=== PATIENT | female | born 1960 | race Caucasian/White ===

== ENCOUNTER 2016-05-10 11:58 | Emergency (ER) | payer MEDICARE, MEDICAID ==
[~2016-05-10 11:58] MED LIST: AMLODIPINE PO; ASA PO; CALCTAB75 PO; EMERGEN C PO; HIZENTRA INJ; LEVOXYL PO; MAGN250T3 PO; MSM PO; VITA200038 PO; ZYRTEC PO; [UNRECOGNIZED DRUG - OTHER] PO
--- NOTE | 2016-05-10 13:13 | EDDOCDS ---
Nurse's Notes [facility] Name: Lynne Zamora Age: 56 yrs Sex: Female : 1960 Arrival Date: 05/10/2016 Time: 11:58 Bed PR2 Private MD: Hafsa Boyle M Diagnosis: Fall due to ice and snow;Contusion of right knee;Acute sinusitis, unspecified Presentation: 05/10 12:01 Presenting complaint: Patient states: slipped on ice and landed on right knee. incident srm occurred to day. also post nasal drip and back of head pain. when she fell she did not hit head. Adult Sepsis Screening: The patient does not have new or worsening altered mentation. Patient's respiratory rate is less than 22. Systolic blood pressure is greater than 100. Patient has a qSOFA score of 0- Negative Sepsis Screen. Suicide/Homicide risk assessment- the patient denies having any suicidal and/or homicidal ideations and does not present with any other emotional, behavioral or mental health complaints. 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 Transition of care: patient was not received from another setting of care. 12:01 Acuity: JUAN MANUEL Level 4 srm 12:01 Method Of Arrival: Walkin/Carried/Asstd srm Triage Assessment: 12:04 General: Appears in no apparent distress, Behavior is appropriate for age, cooperative. srm Pain: Pain currently is 2 out of 10 on a pain scale. At worst was 4 out of 10 on a pain scale. HIV screening NA for this visit Offered previously. 12:05 EENT: Reports post nasal drip. Musculoskeletal: Reports right knee pain. srm Historical: - Allergies: PENICILLINS; - Home Meds: 1. Mucinex 600 mg oral Ta12 1 tab every 12 hours 2. amlodipine 5 mg Oral tab 1 tab once daily 3. levothyroxine 13 mcg Oral cap 1 cap once daily 4. paroxetine HCl 20 mg Oral tab 1 tab once daily 5. ropinirole 0.25 mg oral tab 1 tab nightly for Restless Legs Syndrome 6. Vitamin D Oral 2000 unit weekly - PMHx: Anxiety; Hypertension; Hypothyroidism; restless leg syndrome; Depression; - PSHx: Ear Tubes; Tonsillectomy; Adenoidectomy; repair fracture femur X 2; - Social history: Smoking status: Patient states was never smoker of tobacco. No barriers to communication noted, The patient speaks fluent Setswana, Speaks appropriately for age. - Family history: Not pertinent. - : The pt / caregiver states he / she is not on anticoagulants. Home medication list is obtained from the patient. - Exposure Risk Screening:: None identified. Screenin:09 Screening information is obtained from the patient. Fall risk: No risks identified. [facility] Assistance ADL's: requires no assistance with activities of daily living. Abuse/DV Screen: The patient / caregiver reports he/she is: not in a situation that causes fear, pain or injury. Nutritional screening: No deficits noted. Advance Directives: There is no active DNR order. home support is adequate. Assessment: 13:09 General: Appears in no apparent distress, comfortable, Behavior is appropriate for age, [facility] cooperative, first contact with patient who denies needs at this time. Reviewed discharge instructions, encouraged and answered questions, denies needs, declines offers of further assistance. Musculoskeletal: Range of motion intact in all extremities. Vital Signs: 11:59 BP 149 / 85; Pulse 86; Resp 16; Temp 97.9(O); Pulse Ox 98% on R/A; Weight 74.84 kg; sew Height 4 ft. 10 in. (147.32 cm); Pain 4/10; 13:07 BP 134 / 83 RA Sitting (auto/lg); Pulse 91; Resp 18; Temp 100.2(T); Pulse Ox 92% on rs6 R/A; Pain 2/10; 11:59 Body Mass Index 34.48 (74.84 kg, 147.32 cm) [facility] Vitals: 11:59 Log In Time: May 10, 2016 at 11:55. [facility] ED Course: 11:59 Patient visited by Lexie Lopez. sew 11:59 Hafsa Boyle is Private Physician. sew 11:59 Patient moved to Waiting sew 12:00 Patient visited by Lexie Lopez. sew 12:00 Patient moved to Pre RCE sew 12:03 Triage Initiated srm 12:05 Patient moved to Triage 2 srm 12:20 [facility]intron [facility] dt4 12:20 Syed Seay MD is Attending Physician. dt4 12:20 Patient visited by Parris Cintron PA-C. dt4 12:33 Patient moved to TR1 jb5 12:48 [facility] Payment Agreement was scanned into [employer] and attached to record. lg 12:58 Hafsa Boyle is Referral Physician. dt4 13:02 Patient moved to PR rs6 13:07 Patient visited by Lynne Cortez PCA. rs6 13:09 The patient / caregiver is instructed regarding the plan of care and ED course. [facility] 13:09 No IV's were initiated during this patient's visit. No procedures done that require [facility] assistance. Order Results: There are currently no results for this order. Outcome: 12:59 Discharge ordered by Provider. dt4 13:09 Discharge Assessment: Patient awake, alert and oriented x 3. No cognitive and/or [facility] functional deficits noted. Patient verbalized understanding of disposition instructions. patient administered narcotics - no. The following High Risk Discharge criteria are identified: None. Discharged to home ambulatory. Condition: good Condition: stable. Discharge instructions given to patient, Instructed on discharge instructions, follow up and referral plans. medication usage, Demonstrated understanding of instructions, medications, Pt was receptive of discharge instructions/ teaching. Prescriptions given X 2. No special radiology studies were completed. Property :Personal belongings accompany Pt. 13:12 Patient left the ED. [facility] Signatures: Yohana Owens, RN Wai Torres Reg Reg lg Baker, Janet, LONNIE INDUCTION BRAZER jb5 Alexia Napier RN RN [facility] Lexie Lopez Diane, PA-C PA-C dt4 Lynne Cortez PCA INDUCTION BRAZER rs6 ROBERT
--- NOTE | 2016-05-10 13:14 | REP ---
RIGHT KNEE SERIES: Five views right knee performed. There is no acute fracture or dislocation. There is moderate diffuse joint space narrowing with subchondral sclerosis and spurring. I do not see a significant joint effusion. IMPRESSION: Degenerative changes. No fracture or dislocation. Signed by Rico Kohler MD 05/10/2016 01:31 P
--- NOTE | 2016-05-10 13:14 | EDDOCDS ---
Physician Documentation [facility] Name: Lynne Zamora Age: 56 yrs Sex: Female : 1960 Arrival Date: 05/10/2016 Time: 11:58 Bed PR Private MD: Hafsa Boyle M Disposition: 05/10/16 12:59 Discharged to Home/Self Care. Impression: Fall due to ice and snow, Contusion of right knee, Acute sinusitis, unspecified. - Condition is Stable. - Discharge Instructions: Contusion, Sinusitis, Adult. - Prescriptions for Zithromax Z- Ravi 250 mg Oral Tablet - take 1 tablet by ORAL route as directed for 5 days Day 1- take two tablets once. Day 2, 3, 4 , 5 take one tablet once daily.; 6 tablet. Tigan 300 mg Oral Capsule - take 1 capsule by ORAL route every 12 hours As needed; 20 capsule. - Work Release Form - 1 day, Medication Reconciliation, Local Pharmacy Hours form. - Follow up: Emergency Department; When: As needed; Reason: Worsening of conditions. Follow up: Hafsa Boyle; When: 2 - 3 days; Reason: Wound/Symptom Recheck, Recheck today's complaints, Continuance of care. - Problem is new. - Symptoms are unchanged. - Notes: YOUR XRAY DID NOT SHOW ANY FRACTURES TODAY. TAKE THE ANTIBIOTIC DIRECTED FOR YOUR SINUSITIS. TAKE THE TIGAN DIRECTED, NEEDED FOR ANY NAUSEA FROM THE ANTIBIOTIC. FOLLOW UP WITH YOUR PRIMARY CARE PROVIDER WITHIN THE NEXT WEEK TO RECHECK YOUR SYMPTOMS. ANY WORSENING SYMPTOMS, PLEASE RETURN TO THE ER. Historical: - Allergies: PENICILLINS; - Home Meds: 1. Mucinex 600 mg oral Ta12 1 tab every 12 hours 2. amlodipine 5 mg Oral tab 1 tab once daily 3. levothyroxine 13 mcg Oral cap 1 cap once daily 4. paroxetine HCl 20 mg Oral tab 1 tab once daily 5. ropinirole 0.25 mg oral tab 1 tab nightly for Restless Legs Syndrome 6. Vitamin D Oral 2000 unit weekly - PMHx: Anxiety; Hypertension; Hypothyroidism; restless leg syndrome; Depression; - PSHx: Ear Tubes; Tonsillectomy; Adenoidectomy; repair fracture femur X 2; - Social history: Smoking status: Patient states was never smoker of tobacco. No barriers to communication noted, The patient speaks fluent Turkmen, Speaks appropriately for age. - Family history: Not pertinent. - : The pt / caregiver states he / she is not on anticoagulants. Home medication list is obtained from the patient. - Exposure Risk Screening:: None identified. Vital Signs: 05/10 11:59 BP 149 / 85; Pulse 86; Resp 16; Temp 97.9(O); Pulse Ox 98% on R/A; Weight 74.84 kg / sew 164.99 lbs; Height 4 ft. 10 in. (147.32 cm); Pain 4/10; 13:07 BP 134 / 83 RA Sitting (auto/lg); Pulse 91; Resp 18; Temp 100.2(T); Pulse Ox 92% on rs6 R/A; Pain 2/10; 11:59 Body Mass Index 34.48 (74.84 kg, 147.32 cm) sew MDM: 12:31 Knee, Complete Ordered. EDMS 12:33 Financial registration complete. lg 12:48 [facility] Payment Agreement was scanned into [employer] and attached to record. lg Signatures: Dispatcher [employer] EDMS Yohana Owens, RN RN [facility] Wai Espinal, Reg Reg Alexia Napier RN RN [facility] Parris Cintron PA-C PA-C dt4 The chart was reviewed and I authenticate all verbal orders and agree with the evaluation and treatment provided.Attachments: 12:48 [facility] Payment Agreement lg MTDD
--- NOTE | 2016-05-12 14:13 | EDDOCDS ---
Physician Documentation [facility] Name: Lynne Zamora Age: 56 yrs Sex: Female : 1960 Arrival Date: 05/10/2016 Time: 11:58 Bed PR Private MD: Hafsa Boyle M Disposition: 05/10/16 12:59 Discharged to Home/Self Care. Impression: Fall due to ice and snow, Contusion of right knee, Acute sinusitis, unspecified. - Condition is Stable. - Discharge Instructions: Contusion, Sinusitis, Adult. - Prescriptions for Zithromax Z- Ravi 250 mg Oral Tablet - take 1 tablet by ORAL route as directed for 5 days Day 1- take two tablets once. Day 2, 3, 4 , 5 take one tablet once daily.; 6 tablet. Tigan 300 mg Oral Capsule - take 1 capsule by ORAL route every 12 hours As needed; 20 capsule. - Work Release Form - 1 day, Medication Reconciliation, Local Pharmacy Hours form. - Follow up: Emergency Department; When: As needed; Reason: Worsening of conditions. Follow up: Hafsa Boyle; When: 2 - 3 days; Reason: Wound/Symptom Recheck, Recheck today's complaints, Continuance of care. - Problem is new. - Symptoms are unchanged. - Notes: YOUR XRAY DID NOT SHOW ANY FRACTURES TODAY. TAKE THE ANTIBIOTIC DIRECTED FOR YOUR SINUSITIS. TAKE THE TIGAN DIRECTED, NEEDED FOR ANY NAUSEA FROM THE ANTIBIOTIC. FOLLOW UP WITH YOUR PRIMARY CARE PROVIDER WITHIN THE NEXT WEEK TO RECHECK YOUR SYMPTOMS. ANY WORSENING SYMPTOMS, PLEASE RETURN TO THE ER. Historical: - Allergies: PENICILLINS; - Home Meds: 1. Mucinex 600 mg oral Ta12 1 tab every 12 hours 2. amlodipine 5 mg Oral tab 1 tab once daily 3. levothyroxine 13 mcg Oral cap 1 cap once daily 4. paroxetine HCl 20 mg Oral tab 1 tab once daily 5. ropinirole 0.25 mg oral tab 1 tab nightly for Restless Legs Syndrome 6. Vitamin D Oral 2000 unit weekly - PMHx: Anxiety; Hypertension; Hypothyroidism; restless leg syndrome; Depression; - PSHx: Ear Tubes; Tonsillectomy; Adenoidectomy; repair fracture femur X 2; - Social history: Smoking status: Patient states was never smoker of tobacco. No barriers to communication noted, The patient speaks fluent Macedonian, Speaks appropriately for age. - Family history: Not pertinent. - : The pt / caregiver states he / she is not on anticoagulants. Home medication list is obtained from the patient. - Exposure Risk Screening:: None identified. Vital Signs: 05/10 11:59 BP 149 / 85; Pulse 86; Resp 16; Temp 97.9(O); Pulse Ox 98% on R/A; Weight 74.84 kg / sew 164.99 lbs; Height 4 ft. 10 in. (147.32 cm); Pain 4/10; 13:07 BP 134 / 83 RA Sitting (auto/lg); Pulse 91; Resp 18; Temp 100.2(T); Pulse Ox 92% on rs6 R/A; Pain 2/10; 11:59 Body Mass Index 34.48 (74.84 kg, 147.32 cm) sew MDM: 12:31 Knee, Complete Ordered. EDMS 12:33 Financial registration complete. lg 12:48 [facility] Payment Agreement was scanned into [employer] and attached to record. lg 05/11 10:20 T-Sheet-- Draft Copy was scanned into [employer] and attached to record. gb 10:20 Radiology Report was scanned into [employer] and attached to record. gb Signatures: Dispatcher [employer] EDND Yohana Owens, BOBBY ROSALES [facility] Ann Klein, Reg Reg gb Wai Espinal, Reg Reg Alexia Napier RN RN [facility] Parris Cintron PA-C PA-C dt4 The chart was reviewed and I authenticate all verbal orders and agree with the evaluation and treatment provided.Attachments: 05/10 12:48 [facility] Payment Agreement lg 05/11 10:20 T-Sheet-- Draft Copy gb Chart Complete MTDD
--- NOTE | 2016-05-12 14:13 | EDDOCDS ---
Physician Documentation [facility] Name: Lynne Zamora Age: 56 yrs Sex: Female : 1960 Arrival Date: 05/10/2016 Time: 11:58 Bed PR Private MD: Hafsa Boyle M Disposition: 05/10/16 12:59 Discharged to Home/Self Care. Impression: Fall due to ice and snow, Contusion of right knee, Acute sinusitis, unspecified. - Condition is Stable. - Discharge Instructions: Contusion, Sinusitis, Adult. - Prescriptions for Zithromax Z- Ravi 250 mg Oral Tablet - take 1 tablet by ORAL route as directed for 5 days Day 1- take two tablets once. Day 2, 3, 4 , 5 take one tablet once daily.; 6 tablet. Tigan 300 mg Oral Capsule - take 1 capsule by ORAL route every 12 hours As needed; 20 capsule. - Work Release Form - 1 day, Medication Reconciliation, Local Pharmacy Hours form. - Follow up: Emergency Department; When: As needed; Reason: Worsening of conditions. Follow up: Hafsa Boyle; When: 2 - 3 days; Reason: Wound/Symptom Recheck, Recheck today's complaints, Continuance of care. - Problem is new. - Symptoms are unchanged. - Notes: YOUR XRAY DID NOT SHOW ANY FRACTURES TODAY. TAKE THE ANTIBIOTIC DIRECTED FOR YOUR SINUSITIS. TAKE THE TIGAN DIRECTED, NEEDED FOR ANY NAUSEA FROM THE ANTIBIOTIC. FOLLOW UP WITH YOUR PRIMARY CARE PROVIDER WITHIN THE NEXT WEEK TO RECHECK YOUR SYMPTOMS. ANY WORSENING SYMPTOMS, PLEASE RETURN TO THE ER. Historical: - Allergies: PENICILLINS; - Home Meds: 1. Mucinex 600 mg oral Ta12 1 tab every 12 hours 2. amlodipine 5 mg Oral tab 1 tab once daily 3. levothyroxine 13 mcg Oral cap 1 cap once daily 4. paroxetine HCl 20 mg Oral tab 1 tab once daily 5. ropinirole 0.25 mg oral tab 1 tab nightly for Restless Legs Syndrome 6. Vitamin D Oral 2000 unit weekly - PMHx: Anxiety; Hypertension; Hypothyroidism; restless leg syndrome; Depression; - PSHx: Ear Tubes; Tonsillectomy; Adenoidectomy; repair fracture femur X 2; - Social history: Smoking status: Patient states was never smoker of tobacco. No barriers to communication noted, The patient speaks fluent Nepali, Speaks appropriately for age. - Family history: Not pertinent. - : The pt / caregiver states he / she is not on anticoagulants. Home medication list is obtained from the patient. - Exposure Risk Screening:: None identified. Vital Signs: 05/10 11:59 BP 149 / 85; Pulse 86; Resp 16; Temp 97.9(O); Pulse Ox 98% on R/A; Weight 74.84 kg / sew 164.99 lbs; Height 4 ft. 10 in. (147.32 cm); Pain 4/10; 13:07 BP 134 / 83 RA Sitting (auto/lg); Pulse 91; Resp 18; Temp 100.2(T); Pulse Ox 92% on rs6 R/A; Pain 2/10; 11:59 Body Mass Index 34.48 (74.84 kg, 147.32 cm) sew MDM: 12:31 Knee, Complete Ordered. EDMS 12:33 Financial registration complete. lg 12:48 [facility] Payment Agreement was scanned into [employer] and attached to record. lg 05/11 10:20 T-Sheet-- Draft Copy was scanned into [employer] and attached to record. gb 10:20 Radiology Report was scanned into [employer] and attached to record. gb Signatures: Dispatcher [employer] EDSC Yohana Owens, BOBBY ROSALES [facility] Ann Klein, Reg Reg gb Wai Espinal, Reg Reg Alexia Napier RN RN [facility] Parris Cintron PA-C PA-C dt4 The chart was reviewed and I authenticate all verbal orders and agree with the evaluation and treatment provided.Attachments: 05/10 12:48 [facility] Payment Agreement lg 05/11 10:20 T-Sheet-- Draft Copy gb Chart Complete MTDD
--- NOTE | 2016-05-12 14:13 | EDDOCDS ---
Nurse's Notes [facility] Name: Lynne Zamora Age: 56 yrs Sex: Female : 1960 Arrival Date: 05/10/2016 Time: 11:58 Bed PR2 Private MD: Hafsa Boyle M Diagnosis: Fall due to ice and snow;Contusion of right knee;Acute sinusitis, unspecified Presentation: 05/10 12:01 Presenting complaint: Patient states: slipped on ice and landed on right knee. incident srm occurred to day. also post nasal drip and back of head pain. when she fell she did not hit head. Adult Sepsis Screening: The patient does not have new or worsening altered mentation. Patient's respiratory rate is less than 22. Systolic blood pressure is greater than 100. Patient has a qSOFA score of 0- Negative Sepsis Screen. Suicide/Homicide risk assessment- the patient denies having any suicidal and/or homicidal ideations and does not present with any other emotional, behavioral or mental health complaints. 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 Transition of care: patient was not received from another setting of care. 12:01 Acuity: JUAN MANUEL Level 4 srm 12:01 Method Of Arrival: Walkin/Carried/Asstd srm Triage Assessment: 12:04 General: Appears in no apparent distress, Behavior is appropriate for age, cooperative. srm Pain: Pain currently is 2 out of 10 on a pain scale. At worst was 4 out of 10 on a pain scale. HIV screening NA for this visit Offered previously. 12:05 EENT: Reports post nasal drip. Musculoskeletal: Reports right knee pain. srm Historical: - Allergies: PENICILLINS; - Home Meds: 1. Mucinex 600 mg oral Ta12 1 tab every 12 hours 2. amlodipine 5 mg Oral tab 1 tab once daily 3. levothyroxine 13 mcg Oral cap 1 cap once daily 4. paroxetine HCl 20 mg Oral tab 1 tab once daily 5. ropinirole 0.25 mg oral tab 1 tab nightly for Restless Legs Syndrome 6. Vitamin D Oral 2000 unit weekly - PMHx: Anxiety; Hypertension; Hypothyroidism; restless leg syndrome; Depression; - PSHx: Ear Tubes; Tonsillectomy; Adenoidectomy; repair fracture femur X 2; - Social history: Smoking status: Patient states was never smoker of tobacco. No barriers to communication noted, The patient speaks fluent Tajik, Speaks appropriately for age. - Family history: Not pertinent. - : The pt / caregiver states he / she is not on anticoagulants. Home medication list is obtained from the patient. - Exposure Risk Screening:: None identified. Screenin:09 Screening information is obtained from the patient. Fall risk: No risks identified. [facility] Assistance ADL's: requires no assistance with activities of daily living. Abuse/DV Screen: The patient / caregiver reports he/she is: not in a situation that causes fear, pain or injury. Nutritional screening: No deficits noted. Advance Directives: There is no active DNR order. home support is adequate. Assessment: 13:09 General: Appears in no apparent distress, comfortable, Behavior is appropriate for age, [facility] cooperative, first contact with patient who denies needs at this time. Reviewed discharge instructions, encouraged and answered questions, denies needs, declines offers of further assistance. Musculoskeletal: Range of motion intact in all extremities. Vital Signs: 11:59 BP 149 / 85; Pulse 86; Resp 16; Temp 97.9(O); Pulse Ox 98% on R/A; Weight 74.84 kg; sew Height 4 ft. 10 in. (147.32 cm); Pain 4/10; 13:07 BP 134 / 83 RA Sitting (auto/lg); Pulse 91; Resp 18; Temp 100.2(T); Pulse Ox 92% on rs6 R/A; Pain 2/10; 11:59 Body Mass Index 34.48 (74.84 kg, 147.32 cm) [facility] Vitals: 11:59 Log In Time: May 10, 2016 at 11:55. [facility] [place] Course: 11:59 Patient visited by Lexie Lopez. sew 11:59 Hafsa Boyle is Private Physician. sew 11:59 Patient moved to Waiting sew 12:00 Patient visited by Lexie Lopez. sew 12:00 Patient moved to Pre RCE sew 12:03 Triage Initiated srm 12:05 Patient moved to Triage 2 srm 12:20 Parris [facility]intron [facility]C [facility]. dt4 12:20 Syed Seay MD is Attending Physician. dt4 12:20 Patient visited by Parris Cintron PA-C. dt4 12:33 Patient moved to TR1 jb5 12:48 [facility] Payment Agreement was scanned into [employer] and attached to record. lg 12:58 Hafsa Boyle is Referral Physician. dt4 13:02 Patient moved to PR rs6 13:07 Patient visited by Lynne Cortez PCA. rs6 13:09 The patient / caregiver is instructed regarding the plan of care and ED course. [facility] 13:09 No IV's were initiated during this patient's visit. No procedures done that require [facility] assistance. 13:18 Knee, Complete Returned. EDME 05/11 10:20 T-Sheet-- Draft Copy was scanned into [employer] and attached to record. 10:20 Radiology Report was scanned into [employer] and attached to record. Order Results: Radiology Order: Knee, Complete Test: Knee, Complete REASON FOR EXAMINATION: right knee injury, fall on ice; RIGHT KNEE SERIES:; ; Five views right knee performed. There is no acute fracture or dislocation.; There is moderate diffuse joint space narrowing with subchondral sclerosis and; spurring. I do not see a significant joint effusion.; ; IMPRESSION:; ; Degenerative changes. No fracture or dislocation.; ; ; Signed by; Rico Kohler MD 05/10/2016 01:31 P; Outcome: 05/10 12:59 Discharge ordered by Provider. dt4 13:09 Discharge Assessment: Patient awake, alert and oriented x 3. No cognitive and/or [facility] functional deficits noted. Patient verbalized understanding of disposition instructions. patient administered narcotics - no. The following High Risk Discharge criteria are identified: None. Discharged to home ambulatory. Condition: good Condition: stable. Discharge instructions given to patient, Instructed on discharge instructions, follow up and referral plans. medication usage, Demonstrated understanding of instructions, medications, Pt was receptive of discharge instructions/ teaching. Prescriptions given X 2. No special radiology studies were completed. Property :Personal belongings accompany Pt. 13:12 Patient left the ED. [facility] Signatures: [facility] Yohana Owens, RN BOBBY [facility] Ann Klein, Reg Reg gb Wai Espinal, Reg Reg lg Ashley Cr, DRYWALL PROFESSIONAL DRYWALL PROFESSIONAL jb5 Alexia Napier RN RN [facility] Lopez, Lexie sew Tschudi, Parris, PA-C PA-C dt4 Cortez, Lynne, DRYWALL PROFESSIONAL DRYWALL PROFESSIONAL rs6 Chart Complete MTDD
== END 2016-05-10 13:12 | disposition home or self-care (01) ==
LOC: M ED 11:58
DX: S80.01XA Contusion of right knee, initial encounter (principal); J01.90 Acute sinusitis, unspecified; W00.9XXA Unspecified fall due to ice and snow, initial encounter; Y92.89 Other specified places as the place of occurrence of the external cause; Y93.01 Activity, walking, marching and hiking; Y99.9 Unspecified external cause status; F41.9 Anxiety disorder, unspecified; I10 Essential (primary) hypertension; E03.9 Hypothyroidism, unspecified; F32.9 Major depressive disorder, single episode, unspecified; G25.81 Restless legs syndrome; Z96.22 Myringotomy tube(s) status; Z79.899 Other long term (current) drug therapy; Z88.0 Allergy status to penicillin

== ENCOUNTER → 2016-08-22 | Outpatient (CLI) | payer MEDICARE, MEDICAID ==
--- NOTE | 2016-08-22 12:50 | REP ---
CHEST, TWO VIEWS: HISTORY: Immunodeficiency. COMPARISON: 12/04/2006 Calcified granuloma are present in the left lung. The right lung is clear. The heart is normal in size. The pulmonary vasculature is normal in appearance. There are old compression fractures of several lower thoracic vertebral bodies. IMPRESSION: No acute disease. Signed by Keith Lindsay MD 08/22/2016 12:55 P
== END ==
LOC: M RAD 10:06
PROVIDERS: ATTEND Family Medicine
DX: D83.9 Common variable immunodeficiency, unspecified (principal)

== ENCOUNTER → 2016-10-17 | Outpatient (CLI) | payer MEDICARE, MEDICAID ==
[2016-10-17 11:58] LABS: BASO % 0.6 % (0.0-1.0); EOS # 0.2 K/mm3 (0.0-0.50); EOS % 4.4 % (0.0-3.0); LARGE UNSTAINED CELL # 0.1 K/mm3 (0.0-0.4); LARGE UNSTAINED CELL % 1.8 % (0.0-4.0); LYMPH # 0.5 K/mm3 (1.5-4.5); LYMPH % 11.4 % (24.0-44.0); MEAN CORPUSCULAR HEMOGLOBIN 29.9 pg (27.0-33.0); MEAN CORPUSCULAR HGB CONC 34.1 g/dl (32.0-36.5); MEAN CORPUSCULAR VOLUME 87.6 fl (80.0-96.0); MONO # 0.3 K/mm3 (0.0-0.8); MONO % 6.3 % (0.0-5.0); NEUTROPHILS % 75.6 % (36.0-66.0); PLATELET COUNT, AUTOMATED 336 k/mm3 (150-450); RED CELL DISTRIBUTION WIDTH 13.3 % (11.5-14.5)
[2016-10-17 12:55] LABS: PERCENT SATURATION 23.3 % (13.2-37.4)
== END ==
LOC: M LAB 11:02
PROVIDERS: ATTEND Physician Assistant Medical
DX: D50.9 Iron deficiency anemia, unspecified (principal); M81.8 Other osteoporosis without current pathological fracture; E53.8 Deficiency of other specified B group vitamins

== ENCOUNTER → 2016-11-06 | Outpatient (CLI) | payer MEDICARE, MEDICAID ==
[~2016-11-06] MED LIST changes: +PAXI20TA29 PO
--- NOTE | 2016-11-08 09:42 | DEXA ---
AP SPINE L1 - L4 1.083 -0.9 0.0 LT FEMUR TOTAL Screw in left hip from multiple fractures. RT FEMUR TOTAL 0.675 -2.6 -1.9 TOTAL BODY TOTAL OTHER DUAL FEMUR FRAX* ASSESSMENT Risk factors: History of adult fractures. 10 year probability of fracture Major osteoporotic fracture 17.3 % Hip fracture 3.9 % COMMENTS: Normal bone densitometry of the spine. There is osteoporosis of the right hip. The density of the spine has increased 7.3% since the initial exam on 2003. The spine density has increased 1.0% since the most recent exam on 12/12/2014. The density of the right hip has increased 2.1% since the initial exam on 2003. The density of the right hip has increased 4.7% since the most recent exam on . FOLLOW-UP: Recommendation for the next bone density exam: 2 years. ROBERT
== END ==
LOC: M WHC 14:33
PROVIDERS: ATTEND Physician Assistant Medical
DX: M81.8 Other osteoporosis without current pathological fracture (principal)

== ENCOUNTER 2016-11-08 13:08 | Emergency (ER) | payer MEDICARE, MEDICAID ==
[~2016-11-08] VITALS: Ht 142.2 cm; Wt 78.1 kg
[~2016-11-08 13:08] MED LIST changes: -PAXI20TA29 PO
[2016-11-08] MEDS ORDERED: PAXI20TA29 PO (13:31)
--- NOTE | 2016-11-08 14:50 | REP ---
Clinical: Pain. Trauma. Technique: AP and lateral views of the right tibia / fibula. Findings: Osteopenia and degenerative changes involving the ankle joint. No definite acute fracture or dislocation. Surrounding soft tissues without subcutaneous emphysema or radiodense foreign body. Impression: Osteopenia and degenerative changes. No definite acute fracture or dislocation Signed by Michael Arciniega MD 11/08/2016 02:42 P
--- NOTE | 2016-11-08 14:57 | REP ---
RIGHT RIB SERIES: Five views including PA chest. HISTORY: Right rib pain after an injury in a fall. COMPARISON STUDY: August 22, 2016 chest x-ray. FINDINGS: PA chest radiograph is unremarkable. There is no evidence of pneumothorax or hydrothorax. Heart is not enlarged. Mediastinum is not widened. There are granulomatous pulmonary parenchymal calcifications bilaterally as before. Multiple views of the right ribcage demonstrate diffuse osteopenia. There is some cortical irregularity involving the anterolateral segments of the right 2nd through 10th ribs. There is no definite discontinuity in these changes appear to represent old healed fractures. No adjacent swelling is evident. No definite new fracture is seen. There are degenerative changes in the thoracic and lumbar spine. IMPRESSION: Diffuse osteopenia and evidence of multiple old rib fractures on the right. No definite new fracture seen. Old granulomatous changes in the lungs. Signed by Armando Majano MD 11/08/2016 04:40 P
[2016-11-08 15:08] VITALS: BP 137/74
== END 2016-11-08 15:15 | disposition home or self-care (01) ==
LOC: M ED 13:08
DX: S20.211A Contusion of right front wall of thorax, initial encounter (principal); S80.11XA Contusion of right lower leg, initial encounter; W01.198A Fall on same level from slipping, tripping and stumbling with subsequent striking against other object, initial encounter; Y92.410 Unspecified street and highway as the place of occurrence of the external cause; Y93.9 Activity, unspecified; Y99.9 Unspecified external cause status; M85.88 Other specified disorders of bone density and structure, other site; Z87.81 Personal history of (healed) traumatic fracture; M85.861 Other specified disorders of bone density and structure, right lower leg; I10 Essential (primary) hypertension; D83.9 Common variable immunodeficiency, unspecified; Z79.899 Other long term (current) drug therapy; Z88.0 Allergy status to penicillin; Z88.1 Allergy status to other antibiotic agents

== ENCOUNTER → 2017-01-27 | Outpatient (REF) | payer MEDICARE, MEDICAID ==
[~2017-01-27] MED LIST changes: +PAXI20TA29 PO
[2017-01-27 13:56] LABS: ALBUMIN 3.5 GM/DL (3.2-5.2); ALBUMIN/GLOBULIN RATIO 1.09 (1.00-1.93); ALKALINE PHOSPHATASE 161 U/L (45-117); ALT/SGPT 54 U/L (12-78); ANION GAP 8 MEQ/L (8-16); AST/SGOT 43 U/L (15-37); BILIRUBIN,TOTAL 0.4 MG/DL (0.2-1.0); BLOOD UREA NITROGEN 9 MG/DL (7-18); CALCIUM LEVEL 8.5 MG/DL (8.5-10.1); CARBON DIOXIDE LEVEL 27 MEQ/L (21-32); CHLORIDE LEVEL 106 MEQ/L (98-107); CHOLESTEROL LEVEL 203 MG/DL (<200); CREATININE FOR GFR 0.52 MG/DL (0.55-1.02); FREE T4 1.28 NG/DL (0.76-1.46); GLOMERULAR FILTRATION RATE > 60.0 (>51); GLUCOSE, FASTING 74 MG/DL (70-105); SODIUM LEVEL 141 MEQ/L (136-145); TOTAL PROTEIN 6.7 GM/DL (6.4-8.2); TRIGLYCERIDES LEVEL 138 MG/DL (<150)
== END ==
LOC: M SFHCPLAZ 09:35
PROVIDERS: ATTEND Physician Assistant Medical
DX: E03.9 Hypothyroidism, unspecified (principal); I10 Essential (primary) hypertension; Z68.35 Body mass index [BMI] 35.0-35.9, adult
CPT/HCPCS: 36415; 80053; 80061; 84439; 84443; 86762; 86765; G0463

== ENCOUNTER → 2017-02-03 | Outpatient (REF) | payer MEDICARE, MEDICAID | LOC: M SFHCPLAZ 09:06 | PROVIDERS: ATTEND Physician Assistant Medical | DX: D83.9 Common variable immunodeficiency, unspecified (principal); Z11.1 Encounter for screening for respiratory tuberculosis; Z23 Encounter for immunization ==

== ENCOUNTER → 2017-03-28 | Outpatient (CLI) | payer MEDICARE, MEDICAID ==
[2017-03-28 11:25] LABS: CALCIUM LEVEL 8.5 MG/DL (8.5-10.1); GLOMERULAR FILTRATION RATE > 60.0 (>51)
== END ==
LOC: M LAB 10:16
PROVIDERS: ATTEND Nurse Practitioner Family
DX: M81.0 Age-related osteoporosis without current pathological fracture (principal)

== ENCOUNTER 2017-04-02 12:36 | Outpatient (CLI) | payer MEDICARE, OTHER ==
[~2017-04-02] VITALS: Ht 167.6 cm; Wt 78.5 kg
[2017-04-02] MEDS ORDERED: ZOLEDRONIC ACID 5 MG in APPROPRIATE DILUENT 1 EA IV ONE (13:00)
== END 2017-04-02 13:45 | disposition home or self-care (01) ==
LOC: M INFU 12:36
PROVIDERS: ATTEND Internal Medicine Endocrinology, Diabetes & Metabolism
DX: M81.0 Age-related osteoporosis without current pathological fracture (principal); Z88.0 Allergy status to penicillin; Z79.899 Other long term (current) drug therapy; Z88.1 Allergy status to other antibiotic agents

== ENCOUNTER → 2017-04-02 | Outpatient (CLI) | payer MEDICARE ==
--- NOTE | 2017-04-02 15:51 | REPMRS ---
Patient History The patient states she has not had a clinical breast exam in over a year. Patient is nulliparous. Family history of colorectal cancer in mother at age 51 and breast cancer in paternal aunt at age 50 or over. Took estrogen for 10 years. Took progesterone for 10 years. Digital Woman Screen Mammo: April 02, 2017 - Exam #: [id number] Bilateral CC and MLO view(s) were taken. Technologist: Mala Little, Technologist Prior study comparison: January 17, 2016, digital woman screen mammo performed at [facility]. December 12, 2014, digital woman screen mammo performed at [facility]. December 08, 2013, bilateral bilat screen digital mammo, performed at [facility] ([facility] FINDINGS: There are scattered fibroglandular densities. There has been no change in the appearance of the mammogram from the prior studies. There is a mild amount of scattered fibroglandular density which is fairly symmetric. There is no interval development of dominant mass, architectural distortion, or clustered microcalcification suggestive of malignancy. ASSESSMENT: BI-RADS/ACR category 1 mammogram. Negative. Recommendation Routine screening mammogram in 1 year (for women over age 40). This patient's Lifetime Breast Cancer RIsk is estimated at 15.6 %. This mammogram was interpreted with the aid of an FDA-approved computer-aided dectection system. Electronically Signed By: Deandre Majano MD 04/02/17 [id number]
== END ==
LOC: M WHC 14:50
PROVIDERS: ATTEND Physician Assistant Medical
DX: Z12.31 Encounter for screening mammogram for malignant neoplasm of breast (principal); Z80.0 Family history of malignant neoplasm of digestive organs; Z92.23 Personal history of estrogen therapy; M81.0 Age-related osteoporosis without current pathological fracture; Z88.0 Allergy status to penicillin; Z79.899 Other long term (current) drug therapy; Z88.1 Allergy status to other antibiotic agents
CPT/HCPCS: 96365; G0202; J3489

== ENCOUNTER → 2017-06-04 | Outpatient (REF) | payer MEDICARE ==
[2017-06-04 15:59] LABS: BASO % 0.7 % (0.0-1.0); EOS # 0.2 10^3/uL (0.0-0.50); EOS % 4.7 % (0.0-3.0); HEMATOCRIT 40.7 % (36.0-47.0); HEMOGLOBIN 13.3 g/dl (12.0-16.0); IMMATURE GRANULOCYTE % 0.5 % (0-0); LYMPH # 0.5 10^3/uL (1.5-4.5); LYMPH % 11.1 % (24.0-44.0); MEAN CORPUSCULAR HEMOGLOBIN 27.4 pg (27.0-33.0); MEAN CORPUSCULAR HGB CONC 32.7 g/dl (32.0-36.5); MEAN CORPUSCULAR VOLUME 83.7 fl (80.0-96.0); MONO # 0.4 10^3/uL (0.0-0.8); MONO % 8.7 % (0.0-5.0); NEUTROPHILS # 3.2 10^3/uL (1.8-7.7); NEUTROPHILS % 74.3 % (36.0-66.0); PLATELET COUNT, AUTOMATED 304 10^3/uL (150-450); RED BLOOD COUNT 4.86 10^6/uL (4.00-5.40); RED CELL DISTRIBUTION WIDTH 13.7 % (11.5-14.5); WHITE BLOOD COUNT 4.3 10^3/uL (4.0-10.0)
[2017-06-04 16:23] LABS: ALBUMIN 3.8 GM/DL (3.2-5.2); ALBUMIN/GLOBULIN RATIO 1.36 (1.00-1.93); ALKALINE PHOSPHATASE 137 U/L (45-117); ALT/SGPT 31 U/L (12-78); ANION GAP 10 MEQ/L (8-16); AST/SGOT 22 U/L (7-37); BILIRUBIN,TOTAL 0.6 MG/DL (0.2-1.0); BLOOD UREA NITROGEN 11 MG/DL (7-18); CALCIUM LEVEL 8.3 MG/DL (8.5-10.1); CARBON DIOXIDE LEVEL 23 MEQ/L (21-32); CHLORIDE LEVEL 112 MEQ/L (98-107); CREATININE FOR GFR 0.53 MG/DL (0.55-1.30); GLOMERULAR FILTRATION RATE > 60.0 (>51); GLUCOSE, FASTING 74 MG/DL (70-100); POTASSIUM SERUM 3.8 MEQ/L (3.5-5.1); SODIUM LEVEL 145 MEQ/L (136-145); TOTAL PROTEIN 6.6 GM/DL (6.4-8.2)
[2017-06-04 16:28] LABS: TOTAL 25(OH) VITAMIN D 52.6 NG/ML (30.0-100.0)
[2017-06-04 16:29] LABS: PTH INTACT 89.9 PG/ML (14.0-72.0)
[2017-06-04 16:30] LABS: FREE T4 1.89 NG/DL (0.76-1.46); THYROID STIMULATING HORMONE 0.763 uIU/ML (0.358-3.740)
== END ==
LOC: M SFHCPLAZ 12:41
DX: E55.9 Vitamin D deficiency, unspecified (principal); I10 Essential (primary) hypertension; D83.9 Common variable immunodeficiency, unspecified; E03.9 Hypothyroidism, unspecified
CPT/HCPCS: 84443

== ENCOUNTER → 2017-06-11 | Outpatient (REF) | payer MEDICARE ==
[2017-06-11 13:42] LABS: ALKALINE PHOSPHATASE 134 U/L (45-117); GAMMA GLUTAMYLTRANSPEPTIDASE 115 U/L (5-55)
[2017-06-11 13:56] LABS: HEPATITIS B SURFACE ANTIBODY NEGATIVE (POSITIVE)
[2017-06-11 14:06] LABS: HEPATITIS B SURFACE ANTIGEN NEGATIVE (NEGATIVE)
[2017-06-11 14:16] LABS: LABILE ALKPHOS 75 U/L; STABLE ALKPHOS 59 U/L
[2017-06-11 14:34] LABS: HEPATITIS C VIRUS ABY INDEX < 0.0 INDEX (<0.8)
== END ==
LOC: M SFHCPLAZ 11:09
DX: R79.89 Other specified abnormal findings of blood chemistry (principal); Z11.59 Encounter for screening for other viral diseases; M81.0 Age-related osteoporosis without current pathological fracture
CPT/HCPCS: 86706

== ENCOUNTER → 2017-06-11 | Outpatient (REF) | payer MEDICARE, MEDICAID ==
[2017-06-11 13:54] LABS: ANION GAP 10 MEQ/L (8-16); BLOOD UREA NITROGEN 15 MG/DL (7-18); CALCIUM LEVEL 8.4 MG/DL (8.5-10.1); CARBON DIOXIDE LEVEL 25 MEQ/L (21-32); CHLORIDE LEVEL 109 MEQ/L (98-107); CREATININE FOR GFR 0.51 MG/DL (0.55-1.30); GLOMERULAR FILTRATION RATE > 60.0 (>51); GLUCOSE, FASTING 97 MG/DL (70-100); SODIUM LEVEL 144 MEQ/L (136-145)
== END ==
LOC: M LABDRAWP 13:21
DX: M81.0 Age-related osteoporosis without current pathological fracture (principal)
CPT/HCPCS: 80048

== ENCOUNTER → 2017-06-26 | Outpatient (CLI) | payer MEDICARE, MEDICAID | LOC: M RAD 09:47 | DX: R79.89 Other specified abnormal findings of blood chemistry (principal) | CPT/HCPCS: 76705 ==

== ENCOUNTER → 2017-09-17 | Outpatient (REF) | payer MEDICARE ==
[2017-09-17 16:47] LABS: FREE T4 1.33 NG/DL (0.76-1.46); THYROID STIMULATING HORMONE 0.608 uIU/ML (0.358-3.740)
== END ==
LOC: M SFHCPLAZ 12:24
DX: E03.9 Hypothyroidism, unspecified (principal)
CPT/HCPCS: 84443

== ENCOUNTER → 2017-12-02 | Outpatient (REF) | payer MEDICARE, MEDICAID ==
[2017-12-03 09:56] LABS: APPEARANCE, URINE CLEAR (CLEAR); BACTERIA, URINE AUTO NEGATIVE (NEGATIVE); BILIRUBIN, URINE AUTO NEGATIVE (NEGATIVE); BLOOD, URINE BLOOD NEGATIVE (NEGATIVE); COLOR, URINE YELLOW (YELLOW); GLUCOSE, URINE (UA) AUTO NEGATIVE (NEGATIVE); KETONE, URINE AUTO NEGATIVE (NEGATIVE); LEUKOCYTE ESTERASE, URINE AUTO NEGATIVE (NEGATIVE); MUCUS, URINE SMALL (NEGATIVE); NITRITE, URINE AUTO NEGATIVE (NEGATIVE); PROTEIN, URINE AUTO NEGATIVE (NEGATIVE); RBC, URINE AUTO 2 /HPF (0-3); SPECIFIC GRAVITY URINE AUTO 1.009 (1.002-1.035); SQUAMOUS EPITHELIAL CELL UR AU 0 /HPF (0-6); UROBILINOGEN, URINE AUTO 0.2 mg/dL (0.0-2.0); WBC, URINE AUTO 1 /HPF (0-3)
== END ==
LOC: M SFHCPLAZ 09:33
DX: R35.0 Frequency of micturition (principal)
CPT/HCPCS: 81001

== ENCOUNTER → 2017-12-31 | Outpatient (REF) | payer MEDICARE, MEDICAID ==
[2017-12-31 17:36] LABS: BASO % 0.6 % (0.0-1.0); EOS # 0.2 10^3/uL (0.0-0.50); EOS % 4.3 % (0.0-3.0); HEMATOCRIT 42.6 % (36.0-47.0); HEMOGLOBIN 13.5 g/dl (12.0-15.5); IMMATURE GRANULOCYTE % 0.2 % (0-3.0); LYMPH # 0.6 10^3/uL (1.5-4.5); LYMPH % 11.3 % (24.0-44.0); MEAN CORPUSCULAR HEMOGLOBIN 26.8 pg (27.0-33.0); MEAN CORPUSCULAR HGB CONC 31.7 g/dl (32.0-36.5); MEAN CORPUSCULAR VOLUME 84.7 fl (80.0-96.0); MONO # 0.5 10^3/uL (0.0-0.8); MONO % 9.2 % (0.0-5.0); NEUTROPHILS % 74.4 % (36.0-66.0); PLATELET COUNT, AUTOMATED 280 10^3/uL (150-450); RED BLOOD COUNT 5.03 10^6/uL (4.00-5.40); RED CELL DISTRIBUTION WIDTH 13.9 % (11.5-14.5); WHITE BLOOD COUNT 5.3 10^3/uL (4.0-10.0)
[2017-12-31 17:57] LABS: PTH INTACT 82.5 PG/ML (18.5-88.0); TOTAL 25(OH) VITAMIN D 63.2 NG/ML (30.0-100.0); VITAMIN B12 LEVEL 432 PG/ML (247-911)
[2017-12-31 20:59] LABS: ALBUMIN 3.7 GM/DL (3.2-5.2); ALBUMIN/GLOBULIN RATIO 1.16 (1.00-1.93); ALKALINE PHOSPHATASE 156 U/L (45-117); ALT/SGPT 55 U/L (12-78); ANION GAP 7 MEQ/L (8-16); AST/SGOT 34 U/L (7-37); BILIRUBIN,TOTAL 0.4 MG/DL (0.2-1.0); BLOOD UREA NITROGEN 12 MG/DL (7-18); CALCIUM LEVEL 8.6 MG/DL (8.5-10.1); CARBON DIOXIDE LEVEL 28 MEQ/L (21-32); CHLORIDE LEVEL 109 MEQ/L (98-107); CREATININE FOR GFR 0.53 MG/DL (0.55-1.30); FERRITIN 9 NG/ML (8-252); FREE T4 1.27 NG/DL (0.76-1.46); GLOMERULAR FILTRATION RATE > 60.0 (>51); GLUCOSE, FASTING 91 MG/DL (70-100); IRON (FE) 74 UG/DL (50-170); PERCENT SATURATION 16.9 % (13.2-45.0); POTASSIUM SERUM 3.7 MEQ/L (3.5-5.1); SODIUM LEVEL 144 MEQ/L (136-145); THYROID STIMULATING HORMONE 0.328 uIU/ML (0.358-3.740); TOTAL IRON BINDING CAPACITY 438 UG/DL (250-450); TOTAL PROTEIN 6.9 GM/DL (6.4-8.2)
== END ==
LOC: M SFHCPLAZ 16:01
DX: E03.9 Hypothyroidism, unspecified (principal); E55.9 Vitamin D deficiency, unspecified; R79.89 Other specified abnormal findings of blood chemistry; E53.8 Deficiency of other specified B group vitamins; D50.9 Iron deficiency anemia, unspecified; Z68.32 Body mass index [BMI] 32.0-32.9, adult
CPT/HCPCS: 83550

== ENCOUNTER → 2018-04-08 | Outpatient (CLI) | payer MEDICARE | LOC: M WHC 10:33 | DX: Z12.31 Encounter for screening mammogram for malignant neoplasm of breast (principal); Z80.3 Family history of malignant neoplasm of breast; Z80.0 Family history of malignant neoplasm of digestive organs | CPT/HCPCS: 77067 ==

== ENCOUNTER → 2018-04-29 | Outpatient (REF) | payer MEDICARE, MEDICAID | LOC: M SFHCPLAZ 17:57 | PROVIDERS: ATTEND Physician Assistant Medical | DX: L82.1 Other seborrheic keratosis (principal); D22.4 Melanocytic nevi of scalp and neck; M81.0 Age-related osteoporosis without current pathological fracture ==

== ENCOUNTER → 2018-04-29 | Outpatient (REF) | payer MEDICARE, MEDICAID ==
[2018-04-29 13:56] LABS: CALCIUM LEVEL 8.7 MG/DL (8.5-10.1)
[2018-04-29 14:12] LABS: TOTAL 25(OH) VITAMIN D 64.2 NG/ML (30.0-100.0)
== END ==
LOC: M LABDRAW1 13:01
DX: M81.0 Age-related osteoporosis without current pathological fracture (principal)
CPT/HCPCS: 82310

== ENCOUNTER → 2018-05-01 | Outpatient (REF) | payer MEDICARE, MEDICAID | LOC: M LAB REF 13:43 | PROVIDERS: ATTEND Physician Assistant Medical | DX: J01.90 Acute sinusitis, unspecified (principal) ==

== ENCOUNTER 2018-05-11 08:58 | Outpatient (CLI) | payer MEDICARE, MEDICAID ==
[~2018-05-11] VITALS: Ht 167.6 cm; Wt 78.4 kg
[2018-05-11] VITALS (7 sets, daily range): BP systolic 139–153; BP diastolic 80–86
[2018-05-11] MEDS ORDERED: ACETAMINOPHEN TAB 650MG DOSE (2X325MG) PO ONE (09:00)
[2018-05-11] MEDS ORDERED: diphenhydrAMINE 25 MG CAP PO SCH (09:00)
[2018-05-11] MEDS ORDERED: ACETAMINOPHEN TAB 650MG DOSE (2X325MG) PO PRN (09:15)
[2018-05-11] MEDS ORDERED: IMMUNE GLOBULIN 10% 20 GM in APPROPRIATE DILUENT 1 EA IV ONE (09:30)
[2018-05-11] MEDS ORDERED: EPINEPHrine INJ 1 MG/ML 1ML AMP IM PRN (09:30)
== END 2018-05-11 12:45 | disposition home or self-care (01) ==
LOC: M INFU 08:58
PROVIDERS: ATTEND Allergy & Immunology Allergy
DX: D83.9 Common variable immunodeficiency, unspecified (principal)
CPT/HCPCS: 96365; 96366; 96372; J1459

== ENCOUNTER 2018-06-17 13:33 | Outpatient (CLI) | payer MEDICARE, MEDICAID ==
[~2018-06-17] VITALS: Ht 149.9 cm; Wt 72.3 kg
[2018-06-17 13:45] VITALS: BP 119/73
[2018-06-17] MEDS ORDERED: ACETAMINOPHEN TAB 650MG DOSE (2X325MG) As Ordered ONE (14:04)
[2018-06-17] MEDS ORDERED: IMMUNE GLOBULIN 10% 20GM 200ML BOTTLE (PRIVIGEN) (J1459 PER 500MG) As Ordered ONE (14:04)
[2018-06-17] MEDS ORDERED: diphenhydrAMINE 25 MG CAP As Ordered ONE (14:05)
[2018-06-17] MEDS ORDERED: ACETAMINOPHEN TAB 650MG DOSE (2X325MG) PO ONE (14:15)
[2018-06-17] MEDS ORDERED: ACETAMINOPHEN TAB 650MG DOSE (2X325MG) PO PRN (14:15)
[2018-06-17] MEDS ORDERED: EPINEPHrine INJ 1 MG/ML 1ML AMP IM PRN (14:15)
[2018-06-17] MEDS ORDERED: diphenhydrAMINE 25 MG CAP PO ONE (14:15)
[2018-06-17] MEDS ORDERED: diphenhydrAMINE 25 MG CAP PO PRN (14:15)
[2018-06-17 14:46] VITALS: BP 128/79
[2018-06-17] MEDS ORDERED: IMMUNE GLOBULIN 10% 20 GM in APPROPRIATE DILUENT 1 EA IV ONE (15:00)
[2018-06-17 15:18] VITALS: BP 114/68
[2018-06-17 15:47] VITALS: BP 122/69
[2018-06-17 16:43] VITALS: BP 114/71
== END 2018-06-17 16:40 | disposition home or self-care (01) ==
LOC: M INFU 13:33
PROVIDERS: ATTEND Allergy & Immunology Allergy
DX: D83.9 Common variable immunodeficiency, unspecified (principal); Z88.0 Allergy status to penicillin
CPT/HCPCS: 96365; 96366; J1459

== ENCOUNTER → 2018-07-03 | Outpatient (CLI) | payer MEDICARE, MEDICAID ==
[2018-07-03 12:35] LABS: BASO % 0.4 % (0.0-1.0); EOS # 0.1 10^3/uL (0.0-0.50); EOS % 2.9 % (0.0-3.0); HEMATOCRIT 41.9 % (36.0-47.0); HEMOGLOBIN 13.4 g/dl (12.0-15.5); LYMPH # 0.6 10^3/uL (1.5-4.5); LYMPH % 12.4 % (24.0-44.0); MEAN CORPUSCULAR HEMOGLOBIN 27.6 pg (27.0-33.0); MEAN CORPUSCULAR VOLUME 86.2 fl (80.0-96.0); MONO # 0.4 10^3/uL (0.0-0.8); MONO % 9.6 % (0.0-5.0); NEUTROPHILS # 3.3 10^3/uL (1.8-7.7); NEUTROPHILS % 74.3 % (36.0-66.0); PLATELET COUNT, AUTOMATED 338 10^3/uL (150-450); RED BLOOD COUNT 4.86 10^6/uL (4.00-5.40); WHITE BLOOD COUNT 4.5 10^3/uL (4.0-10.0)
== END ==
LOC: M LAB 11:47
PROVIDERS: ATTEND Allergy & Immunology Allergy
DX: D83.9 Common variable immunodeficiency, unspecified (principal)

== ENCOUNTER 2018-07-06 08:41 | Outpatient (CLI) | payer MEDICARE, MEDICAID ==
[~2018-07-06] VITALS: Ht 149.9 cm; Wt 72.3 kg
[2018-07-06 08:49] VITALS: BP 144/79
[2018-07-06] MEDS ORDERED: diphenhydrAMINE 25 MG CAP PO PRN (09:30)
[2018-07-06] MEDS ORDERED: ACETAMINOPHEN TAB 650MG DOSE (2X325MG) PO ONE (09:30)
[2018-07-06] MEDS ORDERED: EPINEPHrine INJ 1 MG/ML 1ML AMP IM PRN (09:30)
[2018-07-06] MEDS ORDERED: IMMUNE GLOBULIN 10% 20 GM in APPROPRIATE DILUENT 1 EA IV ONE (10:30)
[2018-07-06 10:40] VITALS: BP_SYST 124; BP_SYST 131; BP_DIAS 77; BP_DIAS 81
[2018-07-06 11:10] VITALS: BP 134/80
[2018-07-06 11:38] VITALS: BP 137/86
[2018-07-06 12:30] VITALS: BP 153/83
[2018-07-06] MEDS ORDERED: ACETAMINOPHEN TAB 650MG DOSE (2X325MG) PO PRN (13:00)
== END 2018-07-06 12:30 | disposition home or self-care (01) ==
LOC: M INFU 08:41
PROVIDERS: ATTEND Allergy & Immunology Allergy
DX: D83.9 Common variable immunodeficiency, unspecified (principal)
CPT/HCPCS: 96365; 96366; J1459

== ENCOUNTER → 2018-07-22 | Outpatient (CLI) | payer MEDICARE, MEDICAID ==
[2018-07-22 11:14] LABS: CHOLESTEROL RISK RATIO 2.34 (<5)
== END ==
LOC: M LAB 09:30
PROVIDERS: ATTEND Physician Assistant Medical
DX: Z13.220 Encounter for screening for lipoid disorders (principal); Z79.899 Other long term (current) drug therapy

== ENCOUNTER 2018-08-05 08:12 | Outpatient (CLI) | payer MEDICARE, MEDICAID ==
[~2018-08-05] VITALS: Ht 149.9 cm; Wt 72.3 kg
[2018-08-05 08:20] VITALS: BP 124/77
[2018-08-05] MEDS ORDERED: EPINEPHrine INJ 1 MG/ML 1ML AMP IM PRN (08:45)
[2018-08-05] MEDS ORDERED: diphenhydrAMINE 25 MG CAP PO PRN (08:45)
[2018-08-05] MEDS ORDERED: ACETAMINOPHEN TAB 650MG DOSE (2X325MG) PO ONE (09:00)
[2018-08-05 09:30] VITALS: BP 124/74
[2018-08-05] MEDS ORDERED: IMMUNE GLOBULIN 10% 20 GM in APPROPRIATE DILUENT 1 EA IV ONE (09:30)
[2018-08-05] MEDS ORDERED: ACETAMINOPHEN TAB 650MG DOSE (2X325MG) PO PRN (09:30)
[2018-08-05 10:00] VITALS: BP 120/78
[2018-08-05 11:00] VITALS: BP 126/76
[2018-08-05 11:30] VITALS: BP 132/82
== END 2018-08-05 11:30 | disposition home or self-care (01) ==
LOC: M INFU 08:12
PROVIDERS: ATTEND Allergy & Immunology Allergy
DX: D83.9 Common variable immunodeficiency, unspecified (principal)
CPT/HCPCS: 96365; 96366; J1459

== ENCOUNTER 2018-09-02 09:14 | Outpatient (CLI) | payer MEDICAID, MEDICARE ==
[~2018-09-02] VITALS: Ht 149.9 cm; Wt 72.3 kg
[~2018-09-02 09:14] MED LIST changes: +ACETAMINOPHEN 325 MG TAB PO PRN; +EPINEPHrine INJ 1 MG/ML 1ML AMP IM PRN; +IMMUNE GLOBULIN 10% 20 GM in APPROPRIATE DILUENT 1 EA IV ONE; +diphenhydrAMINE 25 MG CAP PO PRN
[2018-09-02 09:20] VITALS: BP 139/77
[2018-09-02 10:13] VITALS: BP 119/73
[2018-09-02 10:45] VITALS: BP 119/69
[2018-09-02 11:21] VITALS: BP 142/70
[2018-09-02 12:04] VITALS: BP 133/81
[2018-09-02 12:32] VITALS: BP 150/88
== END 2018-09-02 12:35 | disposition home or self-care (01) ==
LOC: M INFU 09:14
PROVIDERS: ATTEND Allergy & Immunology Allergy
DX: D83.9 Common variable immunodeficiency, unspecified (principal)
CPT/HCPCS: 96365; 96366; J1459

== ENCOUNTER → 2018-09-24 | Outpatient (REF) | payer MEDICARE, MEDICAID ==
[~2018-09-24] MED LIST changes: -ACETAMINOPHEN 325 MG TAB PO PRN; -EPINEPHrine INJ 1 MG/ML 1ML AMP IM PRN; -IMMUNE GLOBULIN 10% 20 GM in APPROPRIATE DILUENT 1 EA IV ONE; -diphenhydrAMINE 25 MG CAP PO PRN
[2018-09-24 12:23] LABS: BASO % 0.5 % (0.0-1.0); EOS # 0.2 10^3/uL (0.0-0.50); EOS % 5.6 % (0.0-3.0); HEMATOCRIT 41.7 % (36.0-47.0); HEMOGLOBIN 13.3 g/dl (12.0-15.5); LYMPH # 0.7 10^3/uL (1.5-4.5); LYMPH % 16.7 % (24.0-44.0); MEAN CORPUSCULAR HEMOGLOBIN 27.7 pg (27.0-33.0); MEAN CORPUSCULAR HGB CONC 31.9 g/dl (32.0-36.5); MEAN CORPUSCULAR VOLUME 86.7 fl (80.0-96.0); MONO # 0.5 10^3/uL (0.0-0.8); MONO % 10.8 % (0.0-5.0); NEUTROPHILS # 2.8 10^3/uL (1.8-7.7); NEUTROPHILS % 66.2 % (36.0-66.0); PLATELET COUNT, AUTOMATED 300 10^3/uL (150-450); RED BLOOD COUNT 4.81 10^6/uL (4.00-5.40); WHITE BLOOD COUNT 4.3 10^3/uL (4.0-10.0)
[2018-09-24 12:40] LABS: ALBUMIN 3.7 GM/DL (3.2-5.2); ALT/SGPT 40 U/L (12-78); BILIRUBIN,TOTAL 0.5 MG/DL (0.2-1.0); BLOOD UREA NITROGEN 9 MG/DL (7-18); CALCIUM LEVEL 8.7 MG/DL (8.5-10.1); CARBON DIOXIDE LEVEL 28 MEQ/L (21-32); CHLORIDE LEVEL 108 MEQ/L (98-107); CREATININE FOR GFR 0.53 MG/DL (0.55-1.30); FERRITIN 8 NG/ML (8-252); FREE T4 1.34 NG/DL (0.76-1.46); GLOMERULAR FILTRATION RATE > 60.0 (>51); GLUCOSE, FASTING 75 MG/DL (70-100); IRON (FE) 63 UG/DL (50-170); PERCENT SATURATION 14.6 % (13.2-45.0); POTASSIUM SERUM 3.9 MEQ/L (3.5-5.1); SODIUM LEVEL 143 MEQ/L (136-145); TOTAL IRON BINDING CAPACITY 432 UG/DL (250-450); TOTAL PROTEIN 6.7 GM/DL (6.4-8.2)
[2018-09-24 12:43] LABS: PTH INTACT 87.9 PG/ML (18.5-88.0)
[2018-09-24 13:03] LABS: VITAMIN B12 LEVEL 744 PG/ML (247-911)
== END ==
LOC: M SFHCPLAZ 10:15
PROVIDERS: ATTEND Physician Assistant Medical
DX: E55.9 Vitamin D deficiency, unspecified (principal); R79.89 Other specified abnormal findings of blood chemistry; D50.9 Iron deficiency anemia, unspecified; I10 Essential (primary) hypertension; E53.8 Deficiency of other specified B group vitamins; E03.9 Hypothyroidism, unspecified

== ENCOUNTER 2018-11-25 11:36 | Outpatient (CLI) | payer MEDICARE, MEDICAID ==
[~2018-11-25] VITALS: Ht 149.9 cm; Wt 72.3 kg
[2018-11-25] MEDS ORDERED: ACETAMINOPHEN TAB 650MG DOSE (2X325MG) PO PRN (12:00)
[2018-11-25] MEDS ORDERED: diphenhydrAMINE 25 MG CAP PO PRN (12:00)
[2018-11-25] MEDS ORDERED: IMMUNE GLOBULIN 10% 20 GM in APPROPRIATE DILUENT 1 EA IV ONE (12:30)
[2018-11-25] MEDS ORDERED: EPINEPHrine INJ 1 MG/ML 1ML AMP IM PRN (12:30)
[2018-11-25 12:35] VITALS: BP 120/81
[2018-11-25 13:15] VITALS: BP 160/81
[2018-11-25 13:47] VITALS: BP 134/87
[2018-11-25 14:29] VITALS: BP 136/63
[2018-11-25 15:00] VITALS: BP 133/76
== END 2018-11-25 15:15 | disposition home or self-care (01) ==
LOC: M INFU 11:36
PROVIDERS: ATTEND Allergy & Immunology Allergy
DX: D83.9 Common variable immunodeficiency, unspecified (principal)
CPT/HCPCS: 96365; 96366; J1459

== ENCOUNTER → 2018-12-12 | Outpatient (CLI) | payer MEDICARE, MEDICAID ==
[~2018-12-12] MED LIST changes: +MOBI4TAB PO
[2018-12-12 13:45] LABS: HEMOGLOBIN A1c 5.6 %
[2018-12-12 13:56] LABS: ALBUMIN 3.6 GM/DL (3.2-5.2); ALT/SGPT 44 U/L (12-78); BILIRUBIN,TOTAL 0.9 MG/DL (0.2-1.0); BLOOD UREA NITROGEN 8 MG/DL (7-18); CALCIUM LEVEL 8.7 MG/DL (8.5-10.1); CARBON DIOXIDE LEVEL 26 MEQ/L (21-32); CHLORIDE LEVEL 109 MEQ/L (98-107); CREATININE FOR GFR 0.55 MG/DL (0.55-1.30); GLOMERULAR FILTRATION RATE > 60.0 (>51); GLUCOSE, FASTING 73 MG/DL (70-100); POTASSIUM SERUM 3.8 MEQ/L (3.5-5.1); SODIUM LEVEL 141 MEQ/L (136-145); TOTAL PROTEIN 6.9 GM/DL (6.4-8.2)
== END ==
LOC: M LAB 12:40
PROVIDERS: ATTEND Physician Assistant
DX: M54.5 Low back pain (principal); Z79.899 Other long term (current) drug therapy

== ENCOUNTER → 2018-12-17 | Outpatient (REF) | payer MEDICARE, MEDICAID ==
[~2018-12-17] MED LIST changes: -MOBI4TAB PO
[2018-12-17 13:29] LABS: APPEARANCE, URINE CLEAR (CLEAR); BACTERIA, URINE AUTO NEGATIVE (NEGATIVE); BILIRUBIN, URINE AUTO NEGATIVE (NEGATIVE); BLOOD, URINE BLOOD NEGATIVE (NEGATIVE); COLOR, URINE STRAW (YELLOW); GLUCOSE, URINE (UA) AUTO NEGATIVE (NEGATIVE); KETONE, URINE AUTO NEGATIVE (NEGATIVE); LEUKOCYTE ESTERASE, URINE AUTO NEGATIVE (NEGATIVE); MUCUS, URINE SMALL (NEGATIVE); NITRITE, URINE AUTO NEGATIVE (NEGATIVE); PROTEIN, URINE AUTO NEGATIVE (NEGATIVE); RBC, URINE AUTO 1 /HPF (0-3); SPECIFIC GRAVITY URINE AUTO 1.004 (1.002-1.035); SQUAMOUS EPITHELIAL CELL UR AU 0 /HPF (0-6); UROBILINOGEN, URINE AUTO 0.2 mg/dL (0.0-2.0); WBC, URINE AUTO 0 /HPF (0-3)
== END ==
LOC: M SMT 13:05
PROVIDERS: ATTEND Physician Assistant Medical
DX: R35.0 Frequency of micturition (principal)
CPT/HCPCS: 81001; 81002; G0463

== ENCOUNTER 2018-12-23 12:18 | Outpatient (CLI) | payer MEDICARE, MEDICAID ==
[~2018-12-23] VITALS: Ht 149.9 cm; Wt 72.3 kg
[2018-12-23 12:30] VITALS: BP 126/73
[2018-12-23] MEDS ORDERED: diphenhydrAMINE 25 MG CAP PO ONE (13:45)
[2018-12-23] MEDS ORDERED: EPINEPHrine INJ 1 MG/ML 1ML AMP IM PRN (13:45)
[2018-12-23] MEDS ORDERED: ACETAMINOPHEN TAB 650MG DOSE (2X325MG) PO ONE (13:45)
[2018-12-23] MEDS ORDERED: ACETAMINOPHEN TAB 650MG DOSE (2X325MG) PO PRN (14:00)
[2018-12-23] MEDS ORDERED: diphenhydrAMINE 25 MG CAP PO PRN (14:00)
[2018-12-23] MEDS ORDERED: IMMUNE GLOBULIN 10% 20 GM in APPROPRIATE DILUENT 1 EA IV ONE (14:00)
[2018-12-23 14:20] VITALS: BP 122/73
[2018-12-23 14:50] VITALS: BP 121/71
[2018-12-23 15:20] VITALS: BP 121/73
[2018-12-23 15:50] VITALS: BP 133/73
[2018-12-23 16:25] VITALS: BP 129/75
== END 2018-12-23 16:25 | disposition home or self-care (01) ==
LOC: M INFU 12:18
PROVIDERS: ATTEND Allergy & Immunology Allergy
DX: D83.9 Common variable immunodeficiency, unspecified (principal)
CPT/HCPCS: 96365; 96366; J1459

== ENCOUNTER → 2019-01-06 | Outpatient (CLI) | payer MEDICARE, MEDICAID | LOC: M WHC 11:37 | PROVIDERS: ATTEND Nurse Practitioner Family | DX: M81.0 Age-related osteoporosis without current pathological fracture (principal) ==

== ENCOUNTER 2019-01-27 08:34 | Outpatient (CLI) | payer MEDICARE, MEDICAID ==
[~2019-01-27] VITALS: Ht 149.9 cm; Wt 72.3 kg
[2019-01-27 08:40] VITALS: BP 132/76
[2019-01-27] MEDS: diphenhydrAMINE 25 MG CAP PO PRN (09:23)
[2019-01-27] MEDS: ACETAMINOPHEN TAB 650MG DOSE (2X325MG) PO PRN (09:23)
[2019-01-27] MEDS: IMMUNE GLOBULIN 10% 20 GM in APPROPRIATE DILUENT 1 EA IV ONE (09:24)
[2019-01-27] MEDS ORDERED: EPINEPHrine INJ 1 MG/ML 1ML AMP IM PRN (09:30)
[2019-01-27] MEDS ORDERED: diphenhydrAMINE 25 MG CAP PO PRN (09:30)
[2019-01-27] MEDS ORDERED: ACETAMINOPHEN TAB 650MG DOSE (2X325MG) PO PRN (09:30)
[2019-01-27 09:45] VITALS: BP 113/69
[2019-01-27 10:15] VITALS: BP 119/74
[2019-01-27 10:45] VITALS: BP 119/66
[2019-01-27 11:15] VITALS: BP 125/64
[2019-01-27 11:35] VITALS: BP 127/79
== END 2019-01-27 11:35 | disposition home or self-care (01) ==
LOC: M INFU 08:34
PROVIDERS: ATTEND Allergy & Immunology Allergy
DX: D83.9 Common variable immunodeficiency, unspecified (principal)
CPT/HCPCS: 96365; 96366; J1459

== ENCOUNTER 2019-03-03 07:52 | Outpatient (CLI) | payer MEDICARE, MEDICAID ==
[~2019-03-03] VITALS: Ht 149.9 cm; Wt 72.3 kg
[2019-03-03 08:00] VITALS: BP 140/83
[2019-03-03] MEDS ORDERED: ACETAMINOPHEN TAB 650MG DOSE (2X325MG) PO PRN ×2 (08:00→12:00)
[2019-03-03] MEDS ORDERED: EPINEPHrine INJ 1 MG/ML 1ML AMP IM PRN (08:00)
[2019-03-03] MEDS ORDERED: diphenhydrAMINE 25 MG CAP PO PRN ×2 (08:00→08:30)
[2019-03-03] MEDS ORDERED: IMMUNE GLOBULIN 10% 20 GM in IV 1 EA IV ONE (08:00)
[2019-03-03 09:00] VITALS: BP 125/71
[2019-03-03 09:30] VITALS: BP 126/73
[2019-03-03 10:00] VITALS: BP 135/74
[2019-03-03 10:30] VITALS: BP 134/75
[2019-03-03 11:00] VITALS: BP 127/69
[2019-03-04] MEDS ORDERED: MOBI4TAB PO (17:58)
== END 2019-03-03 11:00 | disposition home or self-care (01) ==
LOC: M INFU 07:52
PROVIDERS: ATTEND Allergy & Immunology Allergy
DX: D83.9 Common variable immunodeficiency, unspecified (principal)
CPT/HCPCS: 96365; 96366; J1459

== ENCOUNTER 2019-03-04 17:09 | Emergency (ER) | payer MEDICARE, MEDICAID ==
[~2019-03-04] VITALS: Ht 144.8 cm; Wt 69.3 kg
[2019-03-04 17:09] VITALS: BP 138/75
--- NOTE | 2019-03-04 17:52 | REP ---
Clinical: Trauma. Technique: AP, lateral, bilateral oblique and coned-down views of the lumbosacral spine. Findings: Osteopenia and moderate/early advanced multilevel degenerative changes include osteophytosis, endplate sclerosis, disc space narrowing, and hypertrophic facet changes. No obvious acute fracture / compression injury or subluxation identified Impression: Osteopenia and multilevel degenerative spondylosis. No acute fracture / compression injury or subluxation. Electronically Signed by Michael Arciniega MD 03/04/2019 05:44 P
[2019-03-04] MEDS ORDERED: MOBI4TAB PO (17:58)
== END 2019-03-04 18:04 | disposition home or self-care (01) ==
LOC: M ED 17:09
DX: M51.36 Other intervertebral disc degeneration, lumbar region (principal); W01.0XXA Fall on same level from slipping, tripping and stumbling without subsequent striking against object, initial encounter; Y92.511 Restaurant or cafe as the place of occurrence of the external cause; Y93.9 Activity, unspecified; Y99.0 Civilian activity done for income or pay; M85.80 Other specified disorders of bone density and structure, unspecified site; M47.9 Spondylosis, unspecified; M54.5 Low back pain; Z88.0 Allergy status to penicillin; Z88.8 Allergy status to other drugs, medicaments and biological substances; Z91.81 History of falling

== ENCOUNTER 2019-03-29 10:36 | Outpatient (RCR) | payer MEDICARE, MEDICAID ==
[~2019-03-29 10:36] MED LIST changes: +MOBI4TAB PO
== END 2019-04-03 ==
LOC: M PT 10:36
PROVIDERS: ATTEND Physician Assistant
DX: Z47.89 Encounter for other orthopedic aftercare (principal); M47.817 Spondylosis without myelopathy or radiculopathy, lumbosacral region
CPT/HCPCS: 97032; 97110; 97161; G0283

== ENCOUNTER → 2019-03-30 | Outpatient (REF) | payer MEDICARE, MEDICAID ==
[2019-03-30 18:26] LABS: ALBUMIN 3.5 GM/DL (3.2-5.2); ALT/SGPT 35 U/L (12-78); BILIRUBIN,TOTAL 0.4 MG/DL (0.2-1.0); BLOOD UREA NITROGEN 14 MG/DL (7-18); CALCIUM LEVEL 9.1 MG/DL (8.5-10.1); CARBON DIOXIDE LEVEL 29 MEQ/L (21-32); CHLORIDE LEVEL 108 MEQ/L (98-107); CREATININE FOR GFR 0.65 MG/DL (0.55-1.30); FREE T4 1.33 NG/DL (0.76-1.46); GLOMERULAR FILTRATION RATE > 60.0 (>51); GLUCOSE, FASTING 85 MG/DL (70-100); HEMOGLOBIN A1c 5.3 %; POTASSIUM SERUM 4.2 MEQ/L (3.5-5.1); PTH INTACT 62.5 PG/ML (18.5-88.0); SODIUM LEVEL 142 MEQ/L (136-145); THYROID STIMULATING HORMONE 0.845 uIU/ML (0.358-3.740); TOTAL 25(OH) VITAMIN D 63.4 NG/ML (30.0-100.0); TOTAL PROTEIN 6.8 GM/DL (6.4-8.2)
== END ==
LOC: M SFHCPLAZ 15:14
PROVIDERS: ATTEND Physician Assistant Medical
DX: R79.89 Other specified abnormal findings of blood chemistry (principal); E66.9 Obesity, unspecified; E55.9 Vitamin D deficiency, unspecified; I10 Essential (primary) hypertension

== ENCOUNTER 2019-03-31 12:30 | Outpatient (CLI) | payer MEDICARE, MEDICAID ==
[~2019-03-31] VITALS: Ht 144.8 cm; Wt 67.0 kg
[2019-03-31] VITALS (7 sets, daily range): BP systolic 122–132; BP diastolic 58–85
[2019-03-31] MEDS ORDERED: diphenhydrAMINE 25 MG CAP PO PRN ×2 (13:00→13:30)
[2019-03-31] MEDS ORDERED: ACETAMINOPHEN TAB 650MG DOSE (2X325MG) PO PRN ×2 (13:00→13:15)
[2019-03-31] MEDS ORDERED: IMMUNE GLOBULIN 10% 20 GM in IV 1 EA IV ONE (13:00)
[2019-03-31] MEDS ORDERED: EPINEPHrine INJ 1 MG/ML 1ML AMP IM PRN (13:15)
== END 2019-03-31 16:00 | disposition home or self-care (01) ==
LOC: M INFU 12:30
PROVIDERS: ATTEND Allergy & Immunology Allergy
DX: D83.9 Common variable immunodeficiency, unspecified (principal)
CPT/HCPCS: 96365; 96366; J1459

== ENCOUNTER → 2019-04-02 | Outpatient (REF) | payer MEDICARE, MEDICAID | LOC: M LAB REF 16:19 | PROVIDERS: ATTEND Physician Assistant Medical | DX: J02.9 Acute pharyngitis, unspecified (principal) ==

== ENCOUNTER 2019-04-29 09:07 | Outpatient (RCR) | payer MEDICARE, MEDICAID | END 2019-05-04 | LOC: M PT 09:07 | PROVIDERS: ATTEND Physician Assistant | DX: M47.817 Spondylosis without myelopathy or radiculopathy, lumbosacral region (principal); M51.37 Other intervertebral disc degeneration, lumbosacral region ==

== ENCOUNTER 2019-05-07 08:01 | Outpatient (CLI) | payer MEDICARE, MEDICAID ==
[~2019-05-07] VITALS: Ht 144.8 cm; Wt 67.0 kg
[~2019-05-07 08:01] MED LIST changes: +diphenhydrAMINE 25 MG CAP PO SCH
[2019-05-07] MEDS ORDERED: ACETAMINOPHEN TAB 650MG DOSE (2X325MG) PO PRN (08:15)
[2019-05-07] MEDS ORDERED: EPINEPHrine INJ 1 MG/ML 1ML VIAL IM PRN (08:15)
[2019-05-07 08:32] VITALS: BP 128/78
[2019-05-07] MEDS ORDERED: IMMUNE GLOBULIN 10% 20 GM in IV 1 EA IV ONE (09:00)
[2019-05-07 09:07] VITALS: BP 134/76
[2019-05-07 09:36] VITALS: BP 126/76
[2019-05-07 10:08] VITALS: BP 133/66
[2019-05-07 10:40] VITALS: BP 145/82
[2019-05-07 11:01] VITALS: BP 137/92
== END 2019-05-07 11:15 | disposition home or self-care (01) ==
LOC: M INFU 08:01
PROVIDERS: ATTEND Allergy & Immunology Allergy
DX: D53.9 Nutritional anemia, unspecified (principal); Z88.0 Allergy status to penicillin; Z88.1 Allergy status to other antibiotic agents; Z88.5 Allergy status to narcotic agent
CPT/HCPCS: 96365; 96366; J1459

== ENCOUNTER → 2019-05-19 | Outpatient (CLI) | payer MEDICARE, MEDICAID ==
[~2019-05-19] MED LIST changes: -diphenhydrAMINE 25 MG CAP PO SCH
[2019-05-19 12:54] LABS: BASO % 0.8 % (0.0-1.0); EOS # 0.2 10^3/uL (0.0-0.5); EOS % 4.5 % (0.0-3.0); HEMATOCRIT 39.4 % (36.0-47.0); HEMOGLOBIN 12.8 g/dl (12.0-15.5); LYMPH # 0.5 10^3/uL (1.5-5.0); LYMPH % 13.4 % (24.0-44.0); MEAN CORPUSCULAR HEMOGLOBIN 27.7 pg (27.0-33.0); MEAN CORPUSCULAR HGB CONC 32.5 g/dl (32.0-36.5); MEAN CORPUSCULAR VOLUME 85.3 fl (80.0-96.0); MONO # 0.5 10^3/uL (0.0-0.8); MONO % 11.9 % (0.0-5.0); NEUTROPHILS # 2.7 10^3/uL (1.5-8.5); NEUTROPHILS % 68.4 % (36.0-66.0); PLATELET COUNT, AUTOMATED 288 10^3/uL (150-450); RED BLOOD COUNT 4.62 10^6/uL (4.00-5.40)
[2019-05-19 13:22] LABS: ALBUMIN 3.7 GM/DL (3.2-5.2); ALT/SGPT 42 U/L (12-78); BILIRUBIN,DIRECT 0.1 MG/DL (0.0-0.2); BILIRUBIN,TOTAL 0.5 MG/DL (0.2-1.0); BLOOD UREA NITROGEN 13 MG/DL (7-18); CALCIUM LEVEL 8.9 MG/DL (8.5-10.1); CARBON DIOXIDE LEVEL 25 MEQ/L (21-32); CHLORIDE LEVEL 110 MEQ/L (98-107); CREATININE FOR GFR 0.57 MG/DL (0.55-1.30); GLOMERULAR FILTRATION RATE > 60.0 (>51); GLUCOSE, FASTING 77 MG/DL (70-100); IMMUNOGLOBULIN G 904 MG/DL (681-1648); PHOSPHORUS LEVEL 4.2 MG/DL (2.5-4.9); POTASSIUM SERUM 4.2 MEQ/L (3.5-5.1); SODIUM LEVEL 142 MEQ/L (136-145); TOTAL PROTEIN 6.6 GM/DL (6.4-8.2)
== END ==
LOC: M LAB 12:07
PROVIDERS: ATTEND Allergy & Immunology Allergy
DX: D83.9 Common variable immunodeficiency, unspecified (principal)

== ENCOUNTER 2019-06-04 07:59 | Outpatient (CLI) | payer MEDICARE, MEDICAID ==
[~2019-06-04] VITALS: Ht 144.8 cm; Wt 67.0 kg
[2019-06-04] MEDS ORDERED: ACETAMINOPHEN TAB 650MG DOSE (2X325MG) PO PRN (08:00)
[2019-06-04] MEDS ORDERED: EPINEPHrine INJ 1 MG/ML 1ML VIAL IM PRN (08:00)
[2019-06-04] MEDS ORDERED: IMMUNE GLOBULIN 10% 20 GM in IV 1 EA IV ONE (08:00)
[2019-06-04] MEDS ORDERED: diphenhydrAMINE 25 MG CAP PO PRN (08:00)
[2019-06-04 08:30] VITALS: BP 136/83
[2019-06-04 09:00] VITALS: BP 109/64
[2019-06-04 09:30] VITALS: BP 126/83
[2019-06-04 10:00] VITALS: BP 123/76
[2019-06-04 10:55] VITALS: BP 128/76
== END 2019-06-04 10:55 | disposition home or self-care (01) ==
LOC: M INFU 07:59
PROVIDERS: ATTEND Allergy & Immunology Allergy
DX: D83.9 Common variable immunodeficiency, unspecified (principal); Z88.0 Allergy status to penicillin; Z88.1 Allergy status to other antibiotic agents; Z88.5 Allergy status to narcotic agent
CPT/HCPCS: 96365; 96366; J1459

== ENCOUNTER 2019-07-02 07:48 | Outpatient (CLI) | payer MEDICARE, MEDICAID ==
[~2019-07-02] VITALS: Ht 144.8 cm; Wt 67.0 kg
[2019-07-02 07:55] VITALS: BP 141/78
[2019-07-02] MEDS ORDERED: ACETAMINOPHEN TAB 650MG DOSE (2X325MG) PO PRN (08:15)
[2019-07-02] MEDS ORDERED: diphenhydrAMINE 25 MG CAP PO PRN (08:30)
[2019-07-02] MEDS ORDERED: EPINEPHrine INJ 1 MG/ML 1ML VIAL IM PRN (08:30)
[2019-07-02] MEDS ORDERED: IMMUNE GLOBULIN 10% 20 GM in IV 1 EA IV ONE (09:00)
[2019-07-02 09:30] VITALS: BP 129/72
[2019-07-02 09:52] VITALS: BP 125/74
[2019-07-02 10:30] VITALS: BP 141/85
[2019-07-02 11:30] VITALS: BP 140/87
== END 2019-07-02 12:00 | disposition home or self-care (01) ==
LOC: M INFU 07:48
PROVIDERS: ATTEND Allergy & Immunology Allergy
DX: D83.9 Common variable immunodeficiency, unspecified (principal); Z88.0 Allergy status to penicillin; Z88.8 Allergy status to other drugs, medicaments and biological substances
CPT/HCPCS: 96365; J1459

== ENCOUNTER → 2019-07-14 | Outpatient (REF) | payer MEDICARE, MEDICAID ==
[2019-07-14 14:55] LABS: ALBUMIN 3.5 GM/DL (3.2-5.2); ALT/SGPT 38 U/L (12-78); BILIRUBIN,TOTAL 0.5 MG/DL (0.2-1.0); BLOOD UREA NITROGEN 14 MG/DL (7-18); CALCIUM LEVEL 8.8 MG/DL (8.5-10.1); CARBON DIOXIDE LEVEL 28 MEQ/L (21-32); CHLORIDE LEVEL 107 MEQ/L (98-107); FERRITIN 9 NG/ML (8-252); GLOMERULAR FILTRATION RATE > 60.0 (>51); GLUCOSE, FASTING 75 MG/DL (70-100); IRON (FE) 79 UG/DL (50-170); POTASSIUM SERUM 4.5 MEQ/L (3.5-5.1); SODIUM LEVEL 141 MEQ/L (136-145); TOTAL PROTEIN 6.6 GM/DL (6.4-8.2)
[2019-07-14 15:01] LABS: PTH INTACT 75.3 PG/ML (18.5-88.0); TOTAL 25(OH) VITAMIN D 71.6 NG/ML (30.0-100.0)
== END ==
LOC: M SFHCPLAZ 11:55
PROVIDERS: ATTEND Physician Assistant Medical
DX: D50.9 Iron deficiency anemia, unspecified (principal); E55.9 Vitamin D deficiency, unspecified; R79.89 Other specified abnormal findings of blood chemistry
CPT/HCPCS: 36415; 80053; 82306; 82728; 83540; 83970; 85046; G0463

== ENCOUNTER 2019-07-30 07:34 | Outpatient (CLI) | payer MEDICARE, MEDICAID ==
[~2019-07-30] VITALS: Ht 144.8 cm; Wt 67.0 kg
[2019-07-30 07:45] VITALS: BP 137/81
[2019-07-30] MEDS ORDERED: ACETAMINOPHEN TAB 650MG DOSE (2X325MG) PO PRN (08:00)
[2019-07-30] MEDS ORDERED: IMMUNE GLOBULIN 10% 20 GM in IV 1 EA IV ONE (08:00)
[2019-07-30] MEDS ORDERED: EPINEPHrine INJ 1 MG/ML 1ML VIAL IM PRN (08:00)
[2019-07-30] MEDS ORDERED: diphenhydrAMINE 25 MG CAP PO ONE (08:00)
[2019-07-30] MEDS ORDERED: diphenhydrAMINE 25 MG CAP PO PRN (08:00)
[2019-07-30] MEDS ORDERED: ACETAMINOPHEN TAB 650MG DOSE (2X325MG) PO ONE (08:00)
[2019-07-30 08:45] VITALS: BP 120/78
[2019-07-30 09:15] VITALS: BP 131/75
[2019-07-30 09:45] VITALS: BP 138/73
[2019-07-30 10:33] VITALS: BP 141/74
== END 2019-07-30 10:30 | disposition home or self-care (01) ==
LOC: M INFU 07:34
PROVIDERS: ATTEND Allergy & Immunology Allergy
DX: D83.9 Common variable immunodeficiency, unspecified (principal); Z88.0 Allergy status to penicillin; Z88.8 Allergy status to other drugs, medicaments and biological substances
CPT/HCPCS: 96365; 96366; J1459

== ENCOUNTER → 2019-08-13 | Outpatient (CLI) | payer MEDICARE, MEDICAID ==
[2019-08-13 11:26] LABS: BASO % 0.7 % (0.0-1.0); EOS # 0.2 10^3/uL (0.0-0.5); EOS % 4.9 % (0.0-3.0); HEMATOCRIT 38.7 % (36.0-47.0); HEMOGLOBIN 13.1 g/dl (12.0-15.5); LYMPH # 0.7 10^3/uL (1.5-5.0); MEAN CORPUSCULAR HEMOGLOBIN 28.4 pg (27.0-33.0); MEAN CORPUSCULAR HGB CONC 33.9 g/dl (32.0-36.5); MEAN CORPUSCULAR VOLUME 83.8 fl (80.0-96.0); MONO # 0.4 10^3/uL (0.0-0.8); NEUTROPHILS % 69.2 % (36.0-66.0); PLATELET COUNT, AUTOMATED 253 10^3/uL (150-450); RED BLOOD COUNT 4.62 10^6/uL (4.00-5.40); WHITE BLOOD COUNT 4.3 10^3/uL (4.0-10.0)
[2019-08-13 12:21] LABS: ALBUMIN 3.4 GM/DL (3.2-5.2); ALT/SGPT 37 U/L (12-78); BILIRUBIN,DIRECT 0.1 MG/DL (0.0-0.2); BILIRUBIN,TOTAL 0.5 MG/DL (0.2-1.0); BLOOD UREA NITROGEN 13 MG/DL (7-18); CALCIUM LEVEL 8.5 MG/DL (8.5-10.1); CARBON DIOXIDE LEVEL 27 MEQ/L (21-32); CHLORIDE LEVEL 109 MEQ/L (98-107); CREATININE FOR GFR 0.61 MG/DL (0.55-1.30); GLOMERULAR FILTRATION RATE > 60.0 (>51); GLUCOSE, FASTING 72 MG/DL (70-100); IMMUNOGLOBULIN G 889 MG/DL (681-1648); POTASSIUM SERUM 4.3 MEQ/L (3.5-5.1); SODIUM LEVEL 140 MEQ/L (136-145); TOTAL PROTEIN 6.7 GM/DL (6.4-8.2)
== END ==
LOC: M LAB 10:49
PROVIDERS: ATTEND Allergy & Immunology Allergy
DX: D83.9 Common variable immunodeficiency, unspecified (principal)

== ENCOUNTER 2019-08-27 07:40 | Outpatient (CLI) | payer MEDICARE, MEDICAID ==
[~2019-08-27] VITALS: Ht 144.8 cm; Wt 67.0 kg
[2019-08-27 07:52] VITALS: BP 119/71
[2019-08-27] MEDS ORDERED: EPINEPHrine INJ 1 MG/ML 1ML AMP IM PRN (08:00)
[2019-08-27] MEDS ORDERED: diphenhydrAMINE 25MG CAP PO ONE (08:00)
[2019-08-27] MEDS ORDERED: ACETAMINOPHEN TAB 650MG DOSE (2X325MG) PO ONE (08:00)
[2019-08-27] MEDS ORDERED: IMMUNE GLOBULIN 10% 20 GM in IV 1 EA IV ONE (08:00)
[2019-08-27] MEDS ORDERED: ACETAMINOPHEN TAB 650MG DOSE (2X325MG) PO PRN (08:00)
[2019-08-27] MEDS ORDERED: diphenhydrAMINE 25MG CAP PO PRN (08:00)
[2019-08-27 08:45] VITALS: BP 124/89
[2019-08-27 09:15] VITALS: BP 122/73
[2019-08-27 09:45] VITALS: BP 125/76
[2019-08-27 10:35] VITALS: BP 135/77
== END 2019-08-27 10:35 | disposition home or self-care (01) ==
LOC: M INFU 07:40
PROVIDERS: ATTEND Allergy & Immunology Allergy
DX: D83.9 Common variable immunodeficiency, unspecified (principal); Z88.0 Allergy status to penicillin; Z88.1 Allergy status to other antibiotic agents
CPT/HCPCS: 96365; 96366; J1459

== ENCOUNTER → 2019-09-10 | Outpatient (CLI) | payer MEDICARE, MEDICAID ==
--- NOTE | 2019-09-10 14:19 | REPMRS ---
Patient History The patient states she has not had a clinical breast exam in over a year. Family history of colorectal cancer at age 51 in mother, breast cancer at age 50 or over in paternal aunt. Took estrogen for 10 years. Took progesterone for 10 years. Digital Woman Screen Mammo: September 10, 2019 - Exam #: [id number] Bilateral CC and MLO view(s) were taken. Technologist: Ida Romo, Technologist Prior study comparison: April 08, 2018, bilateral digital woman screen mammo performed at [facility]. April 02, 2017, digital woman screen mammo performed at [facility]. January 17, 2016, digital woman screen mammo performed at [facility]. FINDINGS: There are scattered fibroglandular densities. The Volpara volumetric breast density category is:B. There has been no change in the appearance of the mammogram from the prior studies. There is a mild amount of scattered fibroglandular density which is fairly symmetric. There is no interval development of dominant mass, architectural distortion, or grouped microcalcification suggestive of malignancy. 3-D tomosynthesis shows no additional findings. Assessment: BI-RADS/ACR category 1 mammogram. Negative Mammogram. Recommendation Routine screening mammogram of both breasts in 1 year (for women over age 40). This patient's Lifetime Breast Cancer Risk is estimated at 14.4 %. This mammogram was interpreted with the aid of an FDA-approved computer-aided dectection system. Electronically Signed By: Deandre Majano MD 09/10/19 [id number]
== END ==
LOC: M WHC 13:26
PROVIDERS: ATTEND Physician Assistant Medical
DX: Z12.31 Encounter for screening mammogram for malignant neoplasm of breast (principal); Z80.0 Family history of malignant neoplasm of digestive organs; Z80.3 Family history of malignant neoplasm of breast

== ENCOUNTER 2019-09-24 10:42 | Outpatient (CLI) | payer MEDICARE, MEDICAID ==
[~2019-09-24] VITALS: Ht 147.3 cm; Wt 67.0 kg
[2019-09-24 10:45] VITALS: BP 126/79
[2019-09-24] MEDS ORDERED: EPINEPHrine INJ 1 MG/ML 1ML AMP IM PRN (11:00)
[2019-09-24] MEDS ORDERED: ACETAMINOPHEN TAB 650MG DOSE (2X325MG) PO PRN (11:00)
[2019-09-24] MEDS ORDERED: diphenhydrAMINE 25MG CAP PO PRN (11:00)
[2019-09-24] MEDS ORDERED: IMMUNE GLOBULIN 10% 20 GM in IV 1 EA IV ONE (11:00)
[2019-09-24 11:45] VITALS: BP 136/78
[2019-09-24 12:14] VITALS: BP 130/64
[2019-09-24 12:45] VITALS: BP_SYST 118; BP_DIAS 118; BP_DIAS 72
[2019-09-24 13:15] VITALS: BP 137/72
== END 2019-09-24 14:00 | disposition home or self-care (01) ==
LOC: M INFU 10:42
PROVIDERS: ATTEND Allergy & Immunology Allergy
DX: D83.9 Common variable immunodeficiency, unspecified (principal); Z88.0 Allergy status to penicillin; Z88.1 Allergy status to other antibiotic agents
CPT/HCPCS: 96365; 96366; J1459

== ENCOUNTER → 2019-10-13 | Outpatient (REF) | payer MEDICARE, MEDICAID ==
[2019-10-13 17:35] LABS: ALBUMIN 3.6 GM/DL (3.2-5.2); ALT/SGPT 35 U/L (12-78); BILIRUBIN,TOTAL 0.5 MG/DL (0.2-1.0); BLOOD UREA NITROGEN 12 MG/DL (7-18); CALCIUM LEVEL 9.3 MG/DL (8.5-10.1); CARBON DIOXIDE LEVEL 27 MEQ/L (21-32); CHLORIDE LEVEL 107 MEQ/L (98-107); CREATININE FOR GFR 0.49 MG/DL (0.55-1.30); FREE T4 1.54 NG/DL (0.76-1.46); GLOMERULAR FILTRATION RATE > 60.0 (>51); GLUCOSE, FASTING 71 MG/DL (70-100); POTASSIUM SERUM 4.6 MEQ/L (3.5-5.1); PTH INTACT 65.5 PG/ML (18.5-88.0); SODIUM LEVEL 140 MEQ/L (136-145); THYROID STIMULATING HORMONE 0.253 uIU/ML (0.358-3.740); TOTAL PROTEIN 6.9 GM/DL (6.4-8.2)
[2019-10-13 17:40] LABS: TOTAL 25(OH) VITAMIN D 84.4 NG/ML (30.0-100.0)
== END ==
LOC: M SFHCPLAZ 12:45
PROVIDERS: ATTEND Physician Assistant Medical
DX: E55.9 Vitamin D deficiency, unspecified (principal); E66.9 Obesity, unspecified; Z79.899 Other long term (current) drug therapy
CPT/HCPCS: 36415; 80053; 82306; 83970; 84439; 84443; G0463

== ENCOUNTER 2019-10-22 09:42 | Outpatient (CLI) | payer MEDICARE, MEDICAID ==
[~2019-10-22] VITALS: Ht 144.8 cm; Wt 67.0 kg
[2019-10-22] MEDS ORDERED: ACETAMINOPHEN TAB 650MG DOSE (2X325MG) PO PRN (10:00)
[2019-10-22] MEDS ORDERED: diphenhydrAMINE 25MG CAP PO ONE (10:00)
[2019-10-22] MEDS ORDERED: diphenhydrAMINE 25MG CAP PO PRN (10:00)
[2019-10-22] MEDS ORDERED: ACETAMINOPHEN TAB 650MG DOSE (2X325MG) PO ONE (10:00)
[2019-10-22 10:08] VITALS: BP 147/70
[2019-10-22] MEDS ORDERED: EPINEPHrine INJ 1 MG/ML 1ML AMP IM PRN (10:15)
[2019-10-22] MEDS ORDERED: IMMUNE GLOBULIN 10% 20 GM in IV 1 EA IV ONE (10:15)
[2019-10-22 10:40] VITALS: BP 148/80
[2019-10-22 11:10] VITALS: BP 129/75
[2019-10-22 11:40] VITALS: BP 150/76
[2019-10-22 12:45] VITALS: BP 132/74
== END 2019-10-22 12:45 | disposition home or self-care (01) ==
LOC: M INFU 09:42
PROVIDERS: ATTEND Allergy & Immunology Allergy
DX: D83.9 Common variable immunodeficiency, unspecified (principal)
CPT/HCPCS: 96365; 96366; J1459

== ENCOUNTER 2019-11-01 15:00 | Outpatient (RCR) | payer MEDICARE, MEDICAID | END 2019-11-02 | LOC: M PT 15:00 | PROVIDERS: ATTEND Physical Medicine & Rehabilitation | DX: Z51.89 Encounter for other specified aftercare (principal); M47.817 Spondylosis without myelopathy or radiculopathy, lumbosacral region ==

== ENCOUNTER 2019-11-19 09:37 | Outpatient (CLI) | payer MEDICARE, MEDICAID ==
[~2019-11-19] VITALS: Ht 147.3 cm; Wt 64.9 kg
[2019-11-19 09:40] VITALS: BP 146/69
[2019-11-19] MEDS ORDERED: EPINEPHrine INJ 1 MG/ML 1ML AMP IM PRN (09:52)
[2019-11-19] MEDS ORDERED: ACETAMINOPHEN TAB 650MG DOSE (2X325MG) PO PRN (10:00)
[2019-11-19] MEDS ORDERED: diphenhydrAMINE 25MG CAP PO PRN (10:00)
[2019-11-19] MEDS ORDERED: ACETAMINOPHEN TAB 650MG DOSE (2X325MG) PO ONE (10:00)
[2019-11-19] MEDS ORDERED: diphenhydrAMINE 25MG CAP PO ONE (10:00)
[2019-11-19] MEDS ORDERED: IMMUNE GLOBULIN 10% 20 GM in IV 1 EA IV ONE (10:00)
[2019-11-19 10:39] VITALS: BP 138/85
[2019-11-19 11:10] VITALS: BP 141/64
[2019-11-19 11:40] VITALS: BP 148/70
[2019-11-19 12:45] VITALS: BP 161/78
== END 2019-11-19 12:45 | disposition home or self-care (01) ==
LOC: M INFU 09:37
PROVIDERS: ATTEND Allergy & Immunology Allergy
DX: D83.9 Common variable immunodeficiency, unspecified (principal)
CPT/HCPCS: 96365; 96366; J1459

== ENCOUNTER 2019-11-25 14:15 | Outpatient (RCR) | payer MEDICARE, MEDICAID | END 2019-12-03 | LOC: M PT 14:15 | PROVIDERS: ATTEND Physical Medicine & Rehabilitation | DX: M47.817 Spondylosis without myelopathy or radiculopathy, lumbosacral region (principal) ==

== ENCOUNTER 2019-12-17 10:00 | Outpatient (CLI) | payer MEDICARE, MEDICAID ==
[~2019-12-17 10:00] MED LIST changes: +ACETAMINOPHEN TAB 650MG DOSE (2X325MG) As Ordered ONE; -AZEL0.055 NARES; -ESOM40CA35 PO; -FLUTISP NS; -MONT10TA4 PO; +diphenhydrAMINE 25MG CAP As Ordered ONE
[2019-12-17] MEDS ORDERED: IMMUNE GLOBULIN 10% 20GM 200ML BOTTLE (PRIVIGEN) (J1459 PER 500MG) As Ordered ONE (10:05)
== END 2019-12-17 13:30 | disposition home or self-care (01) ==
LOC: M INFU 10:00
PROVIDERS: ATTEND Allergy & Immunology Allergy
DX: D83.9 Common variable immunodeficiency, unspecified (principal)
CPT/HCPCS: 80053; 82784; 85025; 96365; 96366; J1459

== ENCOUNTER → 2019-12-17 | Outpatient (CLI) | payer MEDICARE, MEDICAID ==
[~2019-12-17] MED LIST changes: +AZEL0.055 NARES; +ESOM40CA35 PO; +FLUTISP NS; +MONT10TA4 PO
[2020-02-12 19:23] LABS: BASO % 1.1 % (0.0-1.0); EOS # 0.2 10^3/uL (0.0-0.5); EOS % 4.5 % (0.0-3.0); HEMATOCRIT 39.4 % (36.0-47.0); HEMOGLOBIN 12.8 g/dl (12.0-15.5); LYMPH # 0.6 10^3/uL (1.5-5.0); LYMPH % 16.5 % (24.0-44.0); MEAN CORPUSCULAR HEMOGLOBIN 27.5 pg (27.0-33.0); MEAN CORPUSCULAR HGB CONC 32.5 g/dl (32.0-36.5); MEAN CORPUSCULAR VOLUME 84.7 fl (80.0-96.0); MONO # 0.4 10^3/uL (0.0-0.8); MONO % 10.8 % (0.0-5.0); NEUTROPHILS # 2.4 10^3/uL (1.5-8.5); NEUTROPHILS % 66.8 % (36.0-66.0); PLATELET COUNT, AUTOMATED 247 10^3/uL (150-450); RED BLOOD COUNT 4.65 10^6/uL (4.00-5.40); WHITE BLOOD COUNT 3.5 10^3/uL (4.0-10.0)
[2020-02-14 19:48] LABS: ALBUMIN 3.6 GM/DL (3.2-5.2); ALT/SGPT 49 U/L (12-78); BILIRUBIN,TOTAL 0.5 MG/DL (0.2-1.0); BLOOD UREA NITROGEN 14 MG/DL (7-18); CALCIUM LEVEL 8.6 MG/DL (8.5-10.1); CARBON DIOXIDE LEVEL 27 MEQ/L (21-32); CHLORIDE LEVEL 110 MEQ/L (98-107); CREATININE FOR GFR 0.58 MG/DL (0.55-1.30); GLOMERULAR FILTRATION RATE > 60.0 (>51); GLUCOSE, FASTING 77 MG/DL (70-100); IMMUNOGLOBULIN G 806 MG/DL (681-1648); POTASSIUM SERUM 4.2 MEQ/L (3.5-5.1); SODIUM LEVEL 142 MEQ/L (136-145); TOTAL PROTEIN 6.8 GM/DL (6.4-8.2)
== END ==
LOC: M LAB 10:00
PROVIDERS: ATTEND Allergy & Immunology Allergy
DX: D83.9 Common variable immunodeficiency, unspecified (principal)

== ENCOUNTER 2020-01-10 11:46 | Emergency (ER) | payer MEDICARE, MEDICAID ==
[~2020-01-10] VITALS: Ht 144.8 cm; Wt 66.7 kg
[2020-01-10 11:46] VITALS: BP 136/79
[~2020-01-10 11:46] MED LIST changes: -ACETAMINOPHEN TAB 650MG DOSE (2X325MG) As Ordered ONE; -diphenhydrAMINE 25MG CAP As Ordered ONE
[2020-01-10] MEDS ORDERED: FLUTISP NS (11:55)
[2020-01-10] MEDS ORDERED: ESOM40CA35 PO (11:55)
[2020-01-10] MEDS ORDERED: AZEL0.055 NARES (11:55)
[2020-01-10] MEDS ORDERED: MONT10TA4 PO (11:55)
--- NOTE | 2020-01-10 12:40 | REPVR ---
PROCEDURE INFORMATION: Exam: XR Sinus, Minimum of 3 Views, Complete Exam date and time: 01/10/2020 12:16 PM Age: 59 years old Clinical indication: Other: Right sided temporal pain; Additional info: Facial pain; R/O sinusitis TECHNIQUE: Imaging protocol: XR of the sinuses and paranasal structures, minimum of 3 views. Complete exam. COMPARISON: CT Maxilofacial w/out contrast 12/06/2015 2:34 PM FINDINGS: Sinuses: The frontal, maxillary and sphenoid sinuses are grossly clear. No air-fluid level is evident. Bones/joints: No acute fracture is identified. Dental: Dental amalgam is noted. Soft tissues: The soft tissues appear grossly unremarkable. IMPRESSION: Grossly clear frontal, maxillary and sphenoid sinuses, without air-fluid level evident. CT would be more sensitive to sinus disease. Electronically signed by: Rigo Jane On 01/10/2020 12:40:22 PM
== END 2020-01-10 13:15 | disposition home or self-care (01) ==
LOC: M ED 11:46
DX: R09.81 Nasal congestion (principal); K21.9 Gastro-esophageal reflux disease without esophagitis; Z79.2 Long term (current) use of antibiotics; Z88.0 Allergy status to penicillin; Z88.1 Allergy status to other antibiotic agents

== ENCOUNTER 2020-01-19 10:53 | Outpatient (CLI) | payer MEDICARE, MEDICAID ==
[~2020-01-19] VITALS: Ht 170.2 cm; Wt 66.7 kg
[~2020-01-19 10:53] MED LIST changes: +ACETAMINOPHEN TAB 650MG DOSE (2X325MG) PO ONE; +ACETAMINOPHEN TAB 650MG DOSE (2X325MG) PO PRN; +AZEL0.055 NARES; +EPINEPHrine INJ 1 MG/ML 1ML AMP IM PRN; +ESOM40CA35 PO; +FLUTISP NS; +IMMUNE GLOBULIN 10% 20 GM in IV 1 EA IV ONE; +MONT10TA4 PO; +diphenhydrAMINE 25MG CAP PO ONE; +diphenhydrAMINE 25MG CAP PO PRN
[2020-01-19 10:55] VITALS: BP 145/91
[2020-01-19] MEDS ORDERED: ACETAMINOPHEN TAB 650MG DOSE (2X325MG) As Ordered ONE (11:00)
[2020-01-19] MEDS ORDERED: diphenhydrAMINE 25MG CAP As Ordered ONE (11:00)
[2020-01-19] MEDS ORDERED: IMMUNE GLOBULIN 10% 20GM 200ML BOTTLE (PRIVIGEN) (J1459 PER 500MG) As Ordered ONE (11:01)
[2020-01-19 11:30] VITALS: BP 144/80
[2020-01-19 12:30] VITALS: BP 130/84
[2020-01-19 13:00] VITALS: BP 123/62
[2020-01-19 13:45] VITALS: BP 125/63
== END 2020-01-19 13:50 | disposition home or self-care (01) ==
LOC: M INFU 10:53
PROVIDERS: ATTEND Allergy & Immunology Allergy
DX: D83.9 Common variable immunodeficiency, unspecified (principal); Z88.0 Allergy status to penicillin; Z88.1 Allergy status to other antibiotic agents
CPT/HCPCS: 96365; 96366; J1459

== ENCOUNTER 2020-02-16 09:35 | Outpatient (CLI) | payer MEDICARE, MEDICAID ==
[~2020-02-16] VITALS: Ht 144.8 cm; Wt 66.7 kg
[~2020-02-16 09:35] MED LIST changes: -ACETAMINOPHEN TAB 650MG DOSE (2X325MG) PO ONE; -ACETAMINOPHEN TAB 650MG DOSE (2X325MG) PO PRN; -IMMUNE GLOBULIN 10% 20 GM in IV 1 EA IV ONE; -diphenhydrAMINE 25MG CAP PO ONE; -diphenhydrAMINE 25MG CAP PO PRN
[2020-02-16 09:55] VITALS: BP 120/83
[2020-02-16] MEDS: ACETAMINOPHEN 650 MG PO PO PRN (09:58)
[2020-02-16] MEDS: diphenhydrAMINE 25 MG PO PO PRN (09:58)
[2020-02-16] MEDS: IMMUNE GLOBULIN 10% 20 GM in IV 1 EA IV ONE (10:19)
[2020-02-16 10:50] VITALS: BP 150/88
[2020-02-16 11:20] VITALS: BP 138/86
[2020-02-16 11:50] VITALS: BP 139/83
[2020-02-16 12:50] VITALS: BP 136/79
== END 2020-02-16 12:50 | disposition home or self-care (01) ==
LOC: M INFU 09:35
PROVIDERS: ATTEND Allergy & Immunology Allergy
DX: D83.9 Common variable immunodeficiency, unspecified (principal)
CPT/HCPCS: 96365; 96366; J1459

== ENCOUNTER → 2020-02-29 | Outpatient (CLI) | payer MEDICARE, MEDICAID ==
[~2020-02-29] MED LIST changes: -EPINEPHrine INJ 1 MG/ML 1ML AMP IM PRN
--- NOTE | 2020-02-29 11:32 | REP ---
INDICATION: CHRONIC SINUSITIS. COMPARISON: There are [address] studies dated December 06, 2015 and February 15, 2011.. TECHNIQUE: Helical scanning is acquired and 3 mm axial images re-formatted. Coronal MPR images are generated. FINDINGS: There is mild 2-3 mm mucosal thickening affecting the maxillary sinuses bilaterally, right a little more so than left. This is similar to the 2016 prior study. There is minimal mucosal thickening in the inferior aspect of the right frontal sinus. There is opacification of 1 of the posterior ethmoid air cells on the left. Otherwise, the ethmoid sinuses are more clear than they were in 2016. Sphenoid aeration shows mild mucosal thickening on the left. The bony nasal septum deviates to the left with a septal beak. Nasal turbinate soft tissues are symmetric and otherwise unremarkable. There is mucosal thickening narrowing the ostium of the OMC on the right. The left OMC appears patent. Nasal ethmoid recesses are patent. No intraorbital abnormality is seen. Visualized intracranial and the facial structures are unremarkable. IMPRESSION: Poly sinusitis changes as noted above. Similar to findings from 2016. <Electronically signed by Deandre Majano > 02/29/20 [id number]
== END ==
LOC: M RAD 10:57
PROVIDERS: ATTEND Allergy & Immunology Allergy
DX: J32.9 Chronic sinusitis, unspecified (principal)

== ENCOUNTER 2020-03-21 09:43 | Outpatient (CLI) | payer MEDICARE, MEDICAID ==
[~2020-03-21] VITALS: Ht 144.8 cm; Wt 66.7 kg
[~2020-03-21 09:43] MED LIST changes: +ACETAMINOPHEN TAB 650MG DOSE (2X325MG) PO ONE; +ACETAMINOPHEN TAB 650MG DOSE (2X325MG) PO PRN; +IMMUNE GLOBULIN 10% 20 GM in IV 1 EA IV ONE; +IMMUNE GLOBULIN 10% 5 GM in IV 1 EA IV ONE; +diphenhydrAMINE 25MG CAP PO PRN
[2020-03-21] MEDS ORDERED: IMMUNE GLOBULIN 10% 5 GM in IV 1 EA IV ONE (10:00)
[2020-03-21] MEDS ORDERED: IMMUNE GLOBULIN 10% 20 GM in IV 1 EA IV ONE (10:00)
[2020-03-21 10:12] VITALS: BP 142/81
[2020-03-21 10:40] VITALS: BP 152/77
[2020-03-21 11:10] VITALS: BP 150/87
[2020-03-21 13:03] VITALS: BP 181/70
== END 2020-03-21 13:03 | disposition home or self-care (01) ==
LOC: M INFU 09:43
PROVIDERS: ATTEND Allergy & Immunology Allergy
DX: D83.9 Common variable immunodeficiency, unspecified (principal); Z88.0 Allergy status to penicillin; Z88.1 Allergy status to other antibiotic agents
CPT/HCPCS: 96365; 96366; J1459

== ENCOUNTER 2020-04-12 09:37 | Outpatient (CLI) | payer MEDICARE, MEDICAID ==
[~2020-04-12] VITALS: Ht 144.8 cm; Wt 66.7 kg
[~2020-04-12 09:37] MED LIST changes: -ACETAMINOPHEN TAB 650MG DOSE (2X325MG) PO ONE; -IMMUNE GLOBULIN 10% 20 GM in IV 1 EA IV ONE; -IMMUNE GLOBULIN 10% 5 GM in IV 1 EA IV ONE; -MONT10TA4 PO; +MONT5TAB2 PO; -diphenhydrAMINE 25MG CAP PO PRN
[2020-04-12 10:00] VITALS: BP 144/80
[2020-04-12] MEDS ORDERED: ACETAMINOPHEN TAB 650MG DOSE (2X325MG) PO ONE (10:00)
[2020-04-12] MEDS ORDERED: diphenhydrAMINE 25MG CAP PO PRN (10:00)
[2020-04-12] MEDS ORDERED: IMMUNE GLOBULIN 10% 5 GM in IV 1 EA IV ONE (10:00)
[2020-04-12] MEDS ORDERED: IMMUNE GLOBULIN 10% 20 GM in IV 1 EA IV ONE (10:00)
[2020-04-12 10:30] VITALS: BP 133/95
[2020-04-12 11:00] VITALS: BP 135/97
[2020-04-12 12:45] VITALS: BP 134/76
== END 2020-04-12 13:00 | disposition home or self-care (01) ==
LOC: M INFU 09:37
PROVIDERS: ATTEND Allergy & Immunology Allergy
DX: D83.9 Common variable immunodeficiency, unspecified (principal); Z88.0 Allergy status to penicillin; Z88.1 Allergy status to other antibiotic agents
CPT/HCPCS: 96365; 96366; J1459

== ENCOUNTER 2020-05-10 09:40 | Outpatient (CLI) | payer MEDICARE, MEDICAID ==
[~2020-05-10] VITALS: Ht 144.8 cm; Wt 68.1 kg
[~2020-05-10 09:40] MED LIST changes: -ACETAMINOPHEN TAB 650MG DOSE (2X325MG) PO PRN; +UNRESOLVED CLARIFICATION ENTRY XX SCH
[2020-05-10 09:45] VITALS: BP 143/87
[2020-05-10] MEDS ORDERED: EPINEPHrine INJ 1 MG/ML 1ML AMP IM PRN (10:00)
[2020-05-10] MEDS ORDERED: diphenhydrAMINE 25MG CAP PO PRN (10:00)
[2020-05-10] MEDS ORDERED: IMMUNE GLOBULIN 10% 20 GM in IV 1 EA IV ONE (10:00)
[2020-05-10] MEDS ORDERED: ACETAMINOPHEN TAB 650MG DOSE (2X325MG) PO PRN (10:00)
[2020-05-10] MEDS ORDERED: IMMUNE GLOBULIN 10% 5 GM in IV 1 EA IV ONE (10:00)
[2020-05-10] MEDS ORDERED: CELE50CA PO (10:19)
[2020-05-10 10:45] VITALS: BP 129/79
[2020-05-10 11:15] VITALS: BP 123/72
[2020-05-10 12:15] VITALS: BP 138/76
[2020-05-10 13:30] VITALS: BP 130/81
== END 2020-05-10 13:30 | disposition home or self-care (01) ==
LOC: M INFU 09:40
PROVIDERS: ATTEND Allergy & Immunology Allergy
DX: D83.9 Common variable immunodeficiency, unspecified (principal); Z88.0 Allergy status to penicillin; Z88.1 Allergy status to other antibiotic agents
CPT/HCPCS: 96365; 96366; J1459

== ENCOUNTER 2020-06-09 11:41 | Outpatient (CLI) | payer MEDICARE, MEDICAID ==
[~2020-06-09] VITALS: Ht 144.8 cm; Wt 68.1 kg
[~2020-06-09 11:41] MED LIST changes: +ACETAMINOPHEN TAB 650MG DOSE (2X325MG) PO PRN; +CELE50CA PO; +EPINEPHrine INJ 1 MG/ML 1ML AMP IM PRN; +MONT10TA10 PO; -MONT5TAB2 PO; -UNRESOLVED CLARIFICATION ENTRY XX SCH; +diphenhydrAMINE 25MG CAP PO PRN
[2020-06-09 12:00] VITALS: BP 164/76
[2020-06-09] MEDS ORDERED: IMMUNE GLOBULIN 10% 5 GM in IV 1 EA IV ONE (12:30)
[2020-06-09] MEDS ORDERED: IMMUNE GLOBULIN 10% 20 GM in IV 1 EA IV ONE (12:30)
[2020-06-09 13:30] VITALS: BP 159/75
[2020-06-09 15:00] VITALS: BP 159/75
== END 2020-06-09 15:00 | disposition home or self-care (01) ==
LOC: M INFU 11:41
PROVIDERS: ATTEND Allergy & Immunology Allergy
DX: D83.9 Common variable immunodeficiency, unspecified (principal); Z88.0 Allergy status to penicillin; Z88.1 Allergy status to other antibiotic agents
CPT/HCPCS: 96365; 96366; J1459

== ENCOUNTER 2020-07-07 12:03 | Outpatient (CLI) | payer MEDICARE, MEDICAID ==
[~2020-07-07 12:03] MED LIST changes: -ACETAMINOPHEN TAB 650MG DOSE (2X325MG) PO PRN; -EPINEPHrine INJ 1 MG/ML 1ML AMP IM PRN; -diphenhydrAMINE 25MG CAP PO PRN
[2020-07-07 12:20] VITALS: BP 132/78
[2020-07-07] MEDS ORDERED: IMMUNE GLOBULIN 10% 20 GM in IV 1 EA IV ONE (12:30)
[2020-07-07] MEDS ORDERED: ACETAMINOPHEN TAB 650MG DOSE (2X325MG) PO PRN (12:30)
[2020-07-07] MEDS ORDERED: IMMUNE GLOBULIN 10% 5 GM in IV 1 EA IV ONE (12:30)
[2020-07-07] MEDS ORDERED: ACETAMINOPHEN TAB 650MG DOSE (2X325MG) PO ONE (12:35)
[2020-07-07] MEDS ORDERED: diphenhydrAMINE 25MG CAP PO PRN (12:35)
[2020-07-07] MEDS ORDERED: EPINEPHrine INJ 1 MG/ML 1ML AMP IM PRN (12:35)
[2020-07-07 13:45] VITALS: BP 128/72
[2020-07-07 15:15] VITALS: BP 127/84
[2020-07-07 15:45] VITALS: BP 146/82
== END 2020-07-07 15:45 | disposition home or self-care (01) ==
LOC: M INFU 12:03
PROVIDERS: ATTEND Allergy & Immunology Allergy
DX: D83.9 Common variable immunodeficiency, unspecified (principal); Z88.0 Allergy status to penicillin; Z88.1 Allergy status to other antibiotic agents
CPT/HCPCS: 96365; 96366; J1459

== ENCOUNTER 2020-08-04 11:55 | Outpatient (CLI) | payer MEDICARE, MEDICAID ==
[~2020-08-04] VITALS: Ht 144.8 cm; Wt 68.1 kg
[2020-08-04 12:10] VITALS: BP 140/79
[2020-08-04] MEDS ORDERED: diphenhydrAMINE 25MG CAP PO PRN (12:30)
[2020-08-04] MEDS ORDERED: ACETAMINOPHEN TAB 650MG DOSE (2X325MG) PO PRN (12:30)
[2020-08-04] MEDS ORDERED: ACETAMINOPHEN TAB 650MG DOSE (2X325MG) PO ONE (12:30)
[2020-08-04] MEDS ORDERED: EPINEPHrine INJ 1 MG/ML 1ML AMP IM PRN (12:30)
[2020-08-04] MEDS ORDERED: IMMUNE GLOBULIN 10% 20 GM in IV 1 EA IV ONE (12:30)
[2020-08-04] MEDS ORDERED: IMMUNE GLOBULIN 10% 5 GM in IV 1 EA IV ONE (12:30)
[2020-08-04 12:40] VITALS: BP 133/75
[2020-08-04 13:10] VITALS: BP 143/87
[2020-08-04 15:15] VITALS: BP 142/83
== END 2020-08-04 14:30 | disposition home or self-care (01) ==
LOC: M INFU 11:55
PROVIDERS: ATTEND Allergy & Immunology Allergy
DX: D83.9 Common variable immunodeficiency, unspecified (principal); Z88.0 Allergy status to penicillin; Z88.1 Allergy status to other antibiotic agents
CPT/HCPCS: 96365; 96366; J1459

== ENCOUNTER 2020-09-01 12:13 | Outpatient (CLI) | payer MEDICARE, MEDICAID ==
[~2020-09-01] VITALS: Ht 142.2 cm; Wt 68.1 kg
[2020-09-01 10:50] VITALS: BP 140/90
[2020-09-01 12:10] VITALS: BP 125/85
[2020-09-01 12:15] VITALS: BP 138/80
[2020-09-01] MEDS ORDERED: IMMUNE GLOBULIN 10% 5 GM in IV 1 EA IV ONE (12:45)
[2020-09-01] MEDS ORDERED: IMMUNE GLOBULIN 10% 20 GM in IV 1 EA IV ONE ×2 (12:45→13:00)
[2020-09-01] MEDS ORDERED: EPINEPHrine INJ 1 MG/ML 1ML AMP IM PRN (12:45)
[2020-09-01] MEDS ORDERED: ACETAMINOPHEN TAB 650MG DOSE (2X325MG) PO PRN (12:45)
[2020-09-01] MEDS ORDERED: ACETAMINOPHEN TAB 650MG DOSE (2X325MG) PO ONE (12:45)
[2020-09-01] MEDS ORDERED: diphenhydrAMINE 25MG CAP PO PRN (12:45)
[2020-09-01] MEDS ORDERED: IMMUNE GLOBULIN 10% 10 GM in IV 1 EA IV ONE (13:00)
[2020-09-01 14:00] VITALS: BP 128/84
[2020-09-01 15:45] VITALS: BP 131/84
== END 2020-09-01 15:45 | disposition home or self-care (01) ==
LOC: M INFU 12:13
PROVIDERS: ATTEND Allergy & Immunology Allergy
DX: D83.9 Common variable immunodeficiency, unspecified (principal); Z88.1 Allergy status to other antibiotic agents; Z88.0 Allergy status to penicillin
CPT/HCPCS: 96365; 96366; J1459

== ENCOUNTER 2020-09-29 12:15 | Outpatient (CLI) | payer MEDICARE, MEDICAID ==
[~2020-09-29] VITALS: Ht 142.2 cm; Wt 70.0 kg
[~2020-09-29 12:15] MED LIST changes: +EPINEPHrine INJ 1 MG/ML 1ML AMP IM PRN; +diphenhydrAMINE 25MG CAP PO PRN
[2020-09-29 12:20] VITALS: BP 129/94
[2020-09-29] MEDS ORDERED: ACETAMINOPHEN TAB 650MG DOSE (2X325MG) PO PRN (12:30)
[2020-09-29] MEDS ORDERED: IMMUNE GLOBULIN 10% 20 GM in IV 1 EA IV ONE (12:30)
[2020-09-29] MEDS ORDERED: ACETAMINOPHEN TAB 650MG DOSE (2X325MG) PO ONE (12:30)
[2020-09-29] MEDS ORDERED: IMMUNE GLOBULIN 10% 5 GM in IV 1 EA IV ONE (12:30)
[2020-09-29 14:00] VITALS: BP 148/94
[2020-09-29 15:00] VITALS: BP 147/89
[2020-09-29 15:45] VITALS: BP 149/86
== END 2020-09-29 15:45 | disposition home or self-care (01) ==
LOC: M INFU 12:15
PROVIDERS: ATTEND Allergy & Immunology Allergy
DX: D83.9 Common variable immunodeficiency, unspecified (principal); Z88.0 Allergy status to penicillin; Z88.1 Allergy status to other antibiotic agents
CPT/HCPCS: 96365; 96366; J1459

== ENCOUNTER 2020-10-27 11:58 | Outpatient (CLI) | payer MEDICARE, MEDICAID ==
[~2020-10-27] VITALS: Ht 147.3 cm; Wt 70.0 kg
[~2020-10-27 11:58] MED LIST changes: -EPINEPHrine INJ 1 MG/ML 1ML AMP IM PRN; -diphenhydrAMINE 25MG CAP PO PRN
[2020-10-27] MEDS ORDERED: ACETAMINOPHEN TAB 650MG DOSE (2X325MG) PO PRN (12:00)
[2020-10-27] MEDS ORDERED: IMMUNE GLOBULIN 10% 20 GM in IV 1 EA IV ONE (12:00)
[2020-10-27] MEDS ORDERED: IMMUNE GLOBULIN 10% 5 GM in IV 1 EA IV ONE (12:00)
[2020-10-27] MEDS ORDERED: EPINEPHrine INJ 1 MG/ML 1ML AMP IM PRN (12:00)
[2020-10-27] MEDS ORDERED: diphenhydrAMINE 25MG CAP PO PRN (12:00)
[2020-10-27] MEDS ORDERED: ACETAMINOPHEN TAB 650MG DOSE (2X325MG) PO ONE (12:00)
[2020-10-27 12:26] VITALS: BP 134/80
[2020-10-27 13:10] VITALS: BP 133/90
[2020-10-27 13:40] VITALS: BP 135/83
[2020-10-27 14:10] VITALS: BP 145/80
[2020-10-27 15:11] VITALS: BP 139/85
== END 2020-10-27 15:15 | disposition home or self-care (01) ==
LOC: M INFU 11:58
PROVIDERS: ATTEND Allergy & Immunology Allergy
DX: D83.9 Common variable immunodeficiency, unspecified (principal)
CPT/HCPCS: 96365; 96366; J1459

== ENCOUNTER 2020-10-31 13:55 | Outpatient (RCR) | payer MEDICARE, MEDICAID | END 2020-11-01 | LOC: M PT 13:55 | PROVIDERS: ATTEND Physician Assistant | DX: M70.72 Other bursitis of hip, left hip (principal) | CPT/HCPCS: 97110; 97161; G0283 ==

== ENCOUNTER → 2020-11-14 | Outpatient (CLI) | payer MEDICARE, MEDICAID ==
--- NOTE | 2020-11-14 18:05 | REPVR ---
PROCEDURE INFORMATION: Exam: CT Maxillofacial Without Contrast, Sinus Exam date and time: 11/14/2020 5:22 PM Age: 60 years old Clinical indication: Sinusitis; Chronic TECHNIQUE: Imaging protocol: CT Maxillofacial without contrast. Focus on the sinuses. Radiation optimization: All CT scans at this facility use at least one of these dose optimization techniques: automated exposure control; mA and/or kV adjustment per patient size (includes targeted exams where dose is matched to clinical indication); or iterative reconstruction. COMPARISON: CT Maxilofacial w/out contrast 02/29/2020 11:24 AM FINDINGS: Frontal sinuses: Normal. No air-fluid levels. Normal bilateral frontal recesses. Ethmoid air cells: Opacified posterior left ethmoid air cell. Sphenoid sinuses: Mild posterior left sphenoid sinus mucosal thickening. No air-fluid levels. Normal bilateral sphenoid sinus ostia. Maxillary sinuses: Normal. No air-fluid levels. Normal bilateral ostiomeatal complexes. Nasal cavity/Septum: Unremarkable. Orbital cavity: Orbits are normal. Globes are unremarkable. Bones/joints: Unremarkable. Soft tissues: Unremarkable. IMPRESSION: Mild paranasal sinus disease as above, similar appearance to prior study. Electronically signed by: Joe Mcclelland On 11/14/2020 18:05:04 PM
== END ==
LOC: M RAD 17:11
PROVIDERS: ATTEND Physician Assistant Medical
DX: J32.9 Chronic sinusitis, unspecified (principal)

== ENCOUNTER → 2020-11-23 | Outpatient (CLI) | payer MEDICARE, MEDICAID ==
[2020-11-23 16:15] LABS: BASO # 0.1 10^3/uL (0.0-0.2); BASO % 1.1 % (0.0-1.0); EOS # 0.2 10^3/uL (0.0-0.5); EOS % 4.4 % (0.0-3.0); HEMATOCRIT 36.8 % (36.0-47.0); HEMOGLOBIN 11.5 g/dl (12.0-15.5); LYMPH # 0.5 10^3/uL (1.5-5.0); LYMPH % 11.9 % (24.0-44.0); MEAN CORPUSCULAR HEMOGLOBIN 24.7 pg (27.0-33.0); MEAN CORPUSCULAR HGB CONC 31.3 g/dl (32.0-36.5); MONO # 0.5 10^3/uL (0.0-0.8); MONO % 10.4 % (2.0-8.0); NEUTROPHILS # 3.2 10^3/uL (1.5-8.5); NEUTROPHILS % 71.8 % (36.0-66.0); PLATELET COUNT, AUTOMATED 314 10^3/uL (150-450); RED BLOOD COUNT 4.66 10^6/uL (4.00-5.40); WHITE BLOOD COUNT 4.5 10^3/uL (4.0-10.0)
[2020-11-23 16:40] LABS: ALBUMIN 3.7 GM/DL (3.2-5.2); ALT/SGPT 39 U/L (12-78); BILIRUBIN,TOTAL 0.3 MG/DL (0.2-1.0); BLOOD UREA NITROGEN 12 MG/DL (7-18); CALCIUM LEVEL 8.8 MG/DL (8.8-10.2); CARBON DIOXIDE LEVEL 30 MEQ/L (21-32); CHLORIDE LEVEL 108 MEQ/L (98-107); CREATININE FOR GFR 0.54 MG/DL (0.55-1.30); GLOMERULAR FILTRATION RATE > 60.0 (>45); GLUCOSE, FASTING 81 MG/DL (70-100); IMMUNOGLOBULIN G 756 MG/DL (681-1648); POTASSIUM SERUM 4.4 MEQ/L (3.5-5.1); SODIUM LEVEL 142 MEQ/L (136-145); TOTAL PROTEIN 6.8 GM/DL (6.4-8.2)
== END ==
LOC: M LAB 14:30
PROVIDERS: ATTEND Allergy & Immunology Allergy
DX: D83.9 Common variable immunodeficiency, unspecified (principal)

== ENCOUNTER 2020-11-24 11:33 | Outpatient (CLI) | payer MEDICARE, MEDICAID ==
[~2020-11-24] VITALS: Ht 144.8 cm; Wt 70.0 kg
[2020-11-24] MEDS ORDERED: diphenhydrAMINE 25MG CAP PO SCH (12:00)
[2020-11-24] MEDS ORDERED: IMMUNE GLOBULIN 10% 20 GM in IV 1 EA IV ONE (12:00)
[2020-11-24] MEDS ORDERED: EPINEPHrine INJ 1 MG/ML 1ML AMP IM PRN (12:00)
[2020-11-24] MEDS ORDERED: ACETAMINOPHEN TAB 650MG DOSE (2X325MG) PO SCH (12:00)
[2020-11-24] MEDS ORDERED: IMMUNE GLOBULIN 10% 5 GM in IV 1 EA IV ONE (12:00)
[2020-11-24 12:05] VITALS: BP 132/95
[2020-11-24 13:10] VITALS: BP 126/81
[2020-11-24 13:40] VITALS: BP 129/75
[2020-11-24 14:10] VITALS: BP 122/79
[2020-11-24 15:10] VITALS: BP 126/78
== END 2020-11-24 15:25 | disposition home or self-care (01) ==
LOC: M INFU 11:33
PROVIDERS: ATTEND Allergy & Immunology Allergy
DX: D83.9 Common variable immunodeficiency, unspecified (principal); Z88.0 Allergy status to penicillin; Z88.1 Allergy status to other antibiotic agents
CPT/HCPCS: 96365; 96366; J1459

== ENCOUNTER 2020-11-30 14:03 | Outpatient (RCR) | payer MEDICARE, MEDICAID ==
[~2020-11-30 14:03] MED LIST changes: -MONT10TA10 PO; +MONT10TA97 PO
== END 2020-12-02 ==
LOC: M PT 14:03
PROVIDERS: ATTEND Physician Assistant
DX: M70.72 Other bursitis of hip, left hip (principal)
CPT/HCPCS: 97110; G0283

== ENCOUNTER 2020-12-13 14:33 | Outpatient (RCR) | payer MEDICARE, MEDICAID ==
[~2020-12-13 14:33] MED LIST changes: +MONT10TA10 PO; -MONT10TA97 PO
== END 2021-01-02 ==
LOC: M PT 14:33
PROVIDERS: ATTEND Physician Assistant
DX: M70.62 Trochanteric bursitis, left hip (principal)

== ENCOUNTER 2020-12-22 12:18 | Outpatient (CLI) | payer MEDICARE, MEDICAID ==
[~2020-12-22] VITALS: Ht 149.9 cm; Wt 70.0 kg
[~2020-12-22 12:18] MED LIST changes: +ACETAMINOPHEN TAB 650MG DOSE (2X325MG) PO PRN; +EPINEPHrine INJ 1 MG/ML 1ML AMP IM PRN; +IMMUNE GLOBULIN 10% 20 GM in IV 1 EA IV ONE; +IMMUNE GLOBULIN 10% 5 GM in IV 1 EA IV ONE; +diphenhydrAMINE 25MG CAP PO PRN
[2020-12-22 12:44] VITALS: BP 138/93
[2020-12-22 13:30] VITALS: BP 131/79
[2020-12-22 14:02] VITALS: BP 156/93
[2020-12-22 14:32] VITALS: BP 128/65
[2020-12-22 15:35] VITALS: BP 153/84
== END 2020-12-22 15:35 | disposition home or self-care (01) ==
LOC: M INFU 12:18
PROVIDERS: ATTEND Allergy & Immunology Allergy
DX: D83.9 Common variable immunodeficiency, unspecified (principal); Z88.0 Allergy status to penicillin; Z88.1 Allergy status to other antibiotic agents
CPT/HCPCS: 96365; 96366; J1459

== ENCOUNTER 2021-01-25 14:30 | Outpatient (CLI) | payer MEDICARE, MEDICAID ==
[~2021-01-25] VITALS: Ht 144.8 cm; Wt 70.0 kg
[2021-01-25 14:35] VITALS: BP 144/88
[2021-01-25 15:30] VITALS: BP 152/72
[2021-01-25 16:00] VITALS: BP 148/88
[2021-01-25 16:30] VITALS: BP 132/76
[2021-01-25 17:00] VITALS: BP 136/80
[2021-01-25 17:47] VITALS: BP 158/86
== END 2021-01-25 18:00 | disposition home or self-care (01) ==
LOC: M INFU 14:30
PROVIDERS: ATTEND Allergy & Immunology Allergy
DX: D83.9 Common variable immunodeficiency, unspecified (principal); Z88.0 Allergy status to penicillin; Z88.1 Allergy status to other antibiotic agents
CPT/HCPCS: 96365; 96366; J1459

== ENCOUNTER 2021-01-25 19:02 | Emergency (ER) | payer MEDICARE, MEDICAID ==
[~2021-01-25] VITALS: Ht 144.8 cm; Wt 68.8 kg
[~2021-01-25 19:02] MED LIST changes: -ACETAMINOPHEN TAB 650MG DOSE (2X325MG) PO PRN; -EPINEPHrine INJ 1 MG/ML 1ML AMP IM PRN; -IMMUNE GLOBULIN 10% 20 GM in IV 1 EA IV ONE; -IMMUNE GLOBULIN 10% 5 GM in IV 1 EA IV ONE; -diphenhydrAMINE 25MG CAP PO PRN
[2021-01-25 19:04] VITALS: BP 146/82
--- NOTE | 2021-01-26 08:10 | REP ---
INDICATION: fall. Repeat dictation. Preliminary report is provided at the time of the exam by carol ZAPATA. COMPARISON: Comparison CT study August 06, 2013. TECHNIQUE: Helical scanning is acquired. 5 mm axial images were reformatted. Coronal MPR images were generated. FINDINGS: Bone window settings demonstrate an intact bony calvarium. There is no evidence of skull fracture or incidental bony calvarial lesion. The visualized paranasal sinuses appear clear. No intraorbital abnormality is seen. On soft tissue window setting images; the lateral, third, and fourth ventricles are normal in size and position. Kohler-white differentiation pattern is normal above and below the tentorium. There are is no evidence of intracranial hemorrhage. No mass, edema, infarction, or midline shift is seen. No extra-axial fluid collection is appreciated. IMPRESSION: Negative noncontrast head CT. <Electronically signed by Deandre Majano > 01/26/21 [id number]
--- NOTE | 2021-01-26 08:12 | REP ---
INDICATION: fall. Repeat dictation. Preliminary report is provided at the time of the exam by carol ZAPATA. COMPARISON: Comparison study January 08, 2013. TECHNIQUE: Helical scanning is acquired and overlapping 2 mm high resolution axial images were generated and reviewed at bone and soft tissue window settings. Coronal and sagittal multiplanar re-formations images are generated. FINDINGS: There is no evidence of cervical spine element fracture. No skull base fracture is seen. Cervical vertebral body heights are preserved. Alignment is normal. Facet joints are normally aligned bilaterally at each cervical level on multiplanar re-formations images. There is no evidence of intraspinal or paraspinal hematoma. No extra vertebral abnormality is seen. There are mild degenerative disc changes at C3-4, C4-5, and C5-6. Minimal facet hypertrophy is present in the mid cervical spine. There is a levoconvex curvature. IMPRESSION: Mild degenerative spondylosis. No traumatic abnormality. <Electronically signed by Deandre Majano > 01/26/21 [id number]
--- NOTE | 2021-01-26 08:15 | REP ---
INDICATION: fall. Repeat dictation. Preliminary report is provided at the time of the exam by carol ZAPATA. COMPARISON: Comparison CT maxillofacial bones November 14, 2020. TECHNIQUE: Helical scanning is acquired and 2 mm axial images re-formatted. Coronal MPR images are generated and reviewed. FINDINGS: The mandible is edentulous. No mandibular fracture is seen. No maxillary fracture is observed. The nasal bone is intact. Zygomatic arches are intact. Orbital and paranasal sinus margins are intact. There is partial opacification of 1 of the posterior ethmoid air cells on the left. The paranasal sinuses are otherwise clear. No intraorbital hematoma or mass is seen. Visualized intracranial structures are unremarkable. IMPRESSION: No fracture seen. <Electronically signed by Deandre Majano > 01/26/21 [id number]
--- NOTE | 2021-01-26 08:20 | REP ---
INDICATION: L tibial ttp s/p fall. Repeat dictation. Preliminary report is provided at the time of the exam by carol ZAPATA. COMPARISON: Comparison left knee radiographs are from May 06, 2014. TECHNIQUE: Four views of the left calf are provided. FINDINGS: Four views of the left tib fib demonstrate advanced osteoarthritis at the knee and some diffuse osteopenia. No fracture or subluxation is seen. There is orthopedic hardware in the distal femoral diaphysis unchanged. IMPRESSION: Advanced osteoarthritis of the knee. No fracture or subluxation seen. <Electronically signed by Deandre Majano > 01/26/21 [id number]
== END 2021-01-26 01:09 | disposition home or self-care (01) ==
LOC: M ED 19:02
DX: S00.93XA Contusion of unspecified part of head, initial encounter (principal); S80.12XA Contusion of left lower leg, initial encounter; W01.0XXA Fall on same level from slipping, tripping and stumbling without subsequent striking against object, initial encounter; Y92.238 Other place in hospital as the place of occurrence of the external cause; Y93.9 Activity, unspecified; Y99.9 Unspecified external cause status; D83.9 Common variable immunodeficiency, unspecified; M47.812 Spondylosis without myelopathy or radiculopathy, cervical region; M50.320 Other cervical disc degeneration, mid-cervical region, unspecified level; M50.321 Other cervical disc degeneration at C4-C5 level; M50.322 Other cervical disc degeneration at C5-C6 level; M17.12 Unilateral primary osteoarthritis, left knee; K21.9 Gastro-esophageal reflux disease without esophagitis; I10 Essential (primary) hypertension; E03.9 Hypothyroidism, unspecified; F32.9 Major depressive disorder, single episode, unspecified; F41.9 Anxiety disorder, unspecified; Z88.0 Allergy status to penicillin; Z88.1 Allergy status to other antibiotic agents; Z79.899 Other long term (current) drug therapy

== ENCOUNTER → 2021-02-22 | Outpatient (REF) | payer MEDICARE, MEDICAID | LOC: M SFHCPLAZ 10:16 | PROVIDERS: ATTEND Physician Assistant Medical | DX: B07.0 Plantar wart (principal); B07.9 Viral wart, unspecified ==

== ENCOUNTER 2021-03-01 13:55 | Outpatient (CLI) | payer MEDICARE, MEDICAID ==
[~2021-03-01] VITALS: Ht 139.7 cm; Wt 70.0 kg
[~2021-03-01 13:55] MED LIST changes: +ACETAMINOPHEN TAB 650MG DOSE (2X325MG) PO ONE; +ACETAMINOPHEN TAB 650MG DOSE (2X325MG) PO PRN; +EPINEPHrine INJ 1 MG/ML 1ML AMP IM PRN; +IMMUNE GLOBULIN 10% 20 GM in IV 1 EA IV ONE; +IMMUNE GLOBULIN 10% 5 GM in IV 1 EA IV ONE; +diphenhydrAMINE 25MG CAP PO ONE; +diphenhydrAMINE 25MG CAP PO PRN
[2021-03-01] MEDS ORDERED: EPINEPHrine INJ 1 MG/ML 1ML AMP IM PRN (14:00)
[2021-03-01] MEDS ORDERED: diphenhydrAMINE 25MG CAP PO PRN (14:00)
[2021-03-01] MEDS ORDERED: IMMUNE GLOBULIN 10% 20 GM in IV 1 EA IV ONE (14:00)
[2021-03-01] MEDS ORDERED: ACETAMINOPHEN TAB 650MG DOSE (2X325MG) PO PRN (14:00)
[2021-03-01] MEDS ORDERED: IMMUNE GLOBULIN 10% 5 GM in IV 1 EA IV ONE (14:00)
[2021-03-01 14:05] VITALS: BP 166/89
[2021-03-01 15:00] VITALS: BP 140/80
[2021-03-01 15:30] VITALS: BP 140/79
[2021-03-01 16:00] VITALS: BP 136/76
[2021-03-01 17:19] VITALS: BP 158/84
== END 2021-03-01 17:20 | disposition home or self-care (01) ==
LOC: M INFU 13:55
PROVIDERS: ATTEND Allergy & Immunology Allergy
DX: D83.9 Common variable immunodeficiency, unspecified (principal); Z88.0 Allergy status to penicillin; Z88.1 Allergy status to other antibiotic agents
CPT/HCPCS: 96365; 96366; J1459

== ENCOUNTER → 2021-03-06 | Outpatient (CLI) | payer MEDICARE, MEDICAID ==
[~2021-03-06] MED LIST changes: -ACETAMINOPHEN TAB 650MG DOSE (2X325MG) PO ONE; -ACETAMINOPHEN TAB 650MG DOSE (2X325MG) PO PRN; -EPINEPHrine INJ 1 MG/ML 1ML AMP IM PRN; -IMMUNE GLOBULIN 10% 20 GM in IV 1 EA IV ONE; -IMMUNE GLOBULIN 10% 5 GM in IV 1 EA IV ONE; -MONT10TA10 PO; +MONT10TA97 PO; -diphenhydrAMINE 25MG CAP PO ONE; -diphenhydrAMINE 25MG CAP PO PRN
[2021-03-06 17:42] LABS: BASO % 0.7 % (0.0-1.0); EOS % 0.5 % (0.0-3.0); LYMPH # 0.6 10^3/uL (1.5-5.0); LYMPH % 14.6 % (24.0-44.0); MEAN CORPUSCULAR HGB CONC 30.6 g/dl (32.0-36.5); MEAN CORPUSCULAR VOLUME 78.6 fl (80.0-96.0); MONO # 0.4 10^3/uL (0.0-0.8); MONO % 8.7 % (2.0-8.0); NEUTROPHILS # 3.3 10^3/uL (1.5-8.5); NEUTROPHILS % 75.3 % (36.0-66.0); PLATELET COUNT, AUTOMATED 344 10^3/uL (150-450); RED BLOOD COUNT 4.58 10^6/uL (4.00-5.40); WHITE BLOOD COUNT 4.4 10^3/uL (4.0-10.0)
[2021-03-06 18:06] LABS: ALBUMIN 3.5 GM/DL (3.2-5.2); ALT/SGPT 48 U/L (12-78); BILIRUBIN,TOTAL 0.3 MG/DL (0.2-1.0); BLOOD UREA NITROGEN 15 MG/DL (7-18); CALCIUM LEVEL 9.3 MG/DL (8.8-10.2); CARBON DIOXIDE LEVEL 27 MEQ/L (21-32); CHLORIDE LEVEL 107 MEQ/L (98-107); CREATININE FOR GFR 0.59 MG/DL (0.55-1.30); GLOMERULAR FILTRATION RATE > 60.0 (>45); GLUCOSE, FASTING 75 MG/DL (70-100); POTASSIUM SERUM 4.2 MEQ/L (3.5-5.1); SODIUM LEVEL 138 MEQ/L (136-145); TOTAL PROTEIN 7.3 GM/DL (6.4-8.2)
[2021-03-06 18:13] LABS: PTH INTACT 79.8 PG/ML (18.5-88.0); TOTAL 25(OH) VITAMIN D 67.7 NG/ML (30.0-100.0); VITAMIN B12 LEVEL 648 PG/ML (247-911)
[2021-03-06 18:53] LABS: STABLE ALKPHOS 89 U/L
[2021-03-06 18:54] LABS: % LABILE ALKALINE PHOSPHATASE 49.1 %; LABILE ALKPHOS 86 U/L
== END ==
LOC: M PLALAB 14:54
PROVIDERS: ATTEND Physician Assistant Medical
DX: E55.9 Vitamin D deficiency, unspecified (principal); R79.89 Other specified abnormal findings of blood chemistry; J30.2 Other seasonal allergic rhinitis; E53.8 Deficiency of other specified B group vitamins
CPT/HCPCS: 36415; 80053; 82306; 82607; 83970; 84078; 85025; G0463

== ENCOUNTER 2021-04-11 14:07 | Outpatient (CLI) | payer MEDICARE, MEDICAID ==
[2021-04-11] VITALS (7 sets, daily range): BP systolic 128–151; BP diastolic 76–92
[~2021-04-11] VITALS: Ht 144.8 cm; Wt 69.1 kg
[~2021-04-11 14:07] MED LIST changes: +IMMUNE GLOBULIN 10% 20 GM in IV 1 EA IV ONE; +IMMUNE GLOBULIN 10% 5 GM in IV 1 EA IV ONE; +MONT10TA10 PO; -MONT10TA97 PO; +UNRESOLVED CLARIFICATION ENTRY XX SCH
[2021-04-11] MEDS ORDERED: IMMUNE GLOBULIN 10% 20 GM in IV 1 EA IV ONE (14:35)
[2021-04-11] MEDS ORDERED: IMMUNE GLOBULIN 10% 5 GM in IV 1 EA IV ONE (14:35)
== END 2021-04-11 17:29 | disposition home or self-care (01) ==
LOC: M INFU 14:07
PROVIDERS: ATTEND Allergy & Immunology Allergy
DX: D83.9 Common variable immunodeficiency, unspecified (principal); Z88.0 Allergy status to penicillin; Z88.1 Allergy status to other antibiotic agents
CPT/HCPCS: 96365; 96366; J1459

== ENCOUNTER → 2021-04-26 | Outpatient (REF) | payer MEDICARE, MEDICAID ==
[~2021-04-26] MED LIST changes: -IMMUNE GLOBULIN 10% 20 GM in IV 1 EA IV ONE; -IMMUNE GLOBULIN 10% 5 GM in IV 1 EA IV ONE; -MONT10TA10 PO; +MONT10TA97 PO; -UNRESOLVED CLARIFICATION ENTRY XX SCH
== END ==
LOC: M SFHCPLAZ 20:32
PROVIDERS: ATTEND Physician Assistant Medical
DX: J06.9 Acute upper respiratory infection, unspecified (principal)
CPT/HCPCS: 11440; 87798; G0463

== ENCOUNTER → 2021-04-26 | Outpatient (REF) | payer MEDICARE, MEDICAID ==
[~2021-04-26] MED LIST changes: +MONT10TA10 PO; -MONT10TA97 PO
== END ==
LOC: M SFHCPLAZ 16:00
PROVIDERS: ATTEND Physician Assistant Medical
DX: D36.10 Benign neoplasm of peripheral nerves and autonomic nervous system, unspecified (principal)

== ENCOUNTER 2021-05-18 14:11 | Outpatient (CLI) | payer MEDICARE, MEDICAID ==
[~2021-05-18] VITALS: Ht 144.8 cm; Wt 69.0 kg
[~2021-05-18 14:11] MED LIST changes: +IMMUNE GLOBULIN 10% 20 GM in IV 1 EA IV ONE; +IMMUNE GLOBULIN 10% 5 GM in IV 1 EA IV ONE; -MONT10TA10 PO; +MONT10TA97 PO
[2021-05-18 14:30] VITALS: BP 156/84
[2021-05-18 15:30] VITALS: BP 120/87
[2021-05-18 16:00] VITALS: BP 131/83
[2021-05-18 17:30] VITALS: BP 142/86
== END 2021-05-18 17:30 | disposition home or self-care (01) ==
LOC: M INFU 14:11
PROVIDERS: ATTEND Allergy & Immunology Allergy
DX: D83.9 Common variable immunodeficiency, unspecified (principal); Z88.0 Allergy status to penicillin; Z88.1 Allergy status to other antibiotic agents
CPT/HCPCS: 96365; 96366; J1459

== ENCOUNTER 2021-06-15 13:59 | Outpatient (CLI) | payer MEDICARE, MEDICAID ==
[~2021-06-15] VITALS: Ht 144.8 cm; Wt 69.5 kg
[~2021-06-15 13:59] MED LIST changes: -IMMUNE GLOBULIN 10% 20 GM in IV 1 EA IV ONE; -IMMUNE GLOBULIN 10% 5 GM in IV 1 EA IV ONE
[2021-06-15] MEDS ORDERED: IMMUNE GLOBULIN 10% 5 GM in IV 1 EA IV ONE (14:00)
[2021-06-15] MEDS ORDERED: IMMUNE GLOBULIN 10% 20 GM in IV 1 EA IV ONE (14:00)
[2021-06-15 15:00] VITALS: BP 148/76
[2021-06-15 15:30] VITALS: BP 135/77
[2021-06-15 16:00] VITALS: BP 100/58
[2021-06-15 17:07] VITALS: BP 112/67
== END 2021-06-15 17:08 | disposition home or self-care (01) ==
LOC: M INFU 13:59
PROVIDERS: ATTEND Allergy & Immunology Allergy
DX: D83.9 Common variable immunodeficiency, unspecified (principal); Z88.0 Allergy status to penicillin; Z88.1 Allergy status to other antibiotic agents
CPT/HCPCS: 96365; 96366; J1459

== ENCOUNTER 2021-07-16 13:58 | Outpatient (CLI) | payer MEDICARE, MEDICAID ==
[~2021-07-16] VITALS: Ht 144.8 cm; Wt 69.0 kg
[2021-07-16] MEDS ORDERED: IMMUNE GLOBULIN 10% 20 GM in IV 1 EA IV ONE (14:00)
[2021-07-16] MEDS ORDERED: IMMUNE GLOBULIN 10% 5 GM in IV 1 EA IV ONE (14:00)
[2021-07-16 14:30] VITALS: BP 135/75
[2021-07-16 15:14] VITALS: BP 129/77
[2021-07-16 15:41] VITALS: BP 133/69
[2021-07-16 16:45] VITALS: BP 137/81
== END 2021-07-16 16:45 | disposition home or self-care (01) ==
LOC: M INFU 13:58
PROVIDERS: ATTEND Allergy & Immunology Allergy
DX: D83.9 Common variable immunodeficiency, unspecified (principal); Z88.0 Allergy status to penicillin; Z88.1 Allergy status to other antibiotic agents
CPT/HCPCS: 96365; 96366; J1459

== ENCOUNTER 2021-08-14 13:59 | Outpatient (CLI) | payer MEDICARE, MEDICAID ==
[~2021-08-14] VITALS: Ht 144.8 cm; Wt 69.0 kg
[2021-08-14] MEDS ORDERED: IMMUNE GLOBULIN 10% 5 GM in IV 1 EA IV ONE (14:00)
[2021-08-14] MEDS ORDERED: IMMUNE GLOBULIN 10% 20 GM in IV 1 EA IV ONE (14:00)
[2021-08-14 14:35] VITALS: BP 146/87
[2021-08-14 15:00] VITALS: BP 123/69
[2021-08-14 15:30] VITALS: BP 129/71
[2021-08-14 16:54] VITALS: BP 129/71
== END 2021-08-14 17:00 | disposition home or self-care (01) ==
LOC: M INFU 13:59
PROVIDERS: ATTEND Allergy & Immunology Allergy
DX: D83.9 Common variable immunodeficiency, unspecified (principal); Z88.0 Allergy status to penicillin; Z88.1 Allergy status to other antibiotic agents
CPT/HCPCS: 96365; 96366; J1459

== ENCOUNTER → 2021-08-22 | Outpatient (CLI) | payer MEDICARE, MEDICAID ==
[2021-08-22 18:04] LABS: BASO % 0.6 % (0.0-1.0); EOS # 0.1 10^3/uL (0.0-0.5); EOS % 2.5 % (0.0-3.0); HEMATOCRIT 34.5 % (36.0-47.0); HEMOGLOBIN 10.4 g/dl (12.0-15.5); LYMPH # 0.5 10^3/uL (1.5-5.0); LYMPH % 13.9 % (24.0-44.0); MEAN CORPUSCULAR HEMOGLOBIN 22.3 pg (27.0-33.0); MEAN CORPUSCULAR HGB CONC 30.1 g/dl (32.0-36.5); MONO # 0.4 10^3/uL (0.0-0.8); MONO % 10.8 % (2.0-8.0); NEUTROPHILS # 2.5 10^3/uL (1.5-8.5); NEUTROPHILS % 71.9 % (36.0-66.0); PLATELET COUNT, AUTOMATED 323 10^3/uL (150-450); RED BLOOD COUNT 4.66 10^6/uL (4.00-5.40); WHITE BLOOD COUNT 3.5 10^3/uL (4.0-10.0)
[2021-08-22 18:37] LABS: ALBUMIN 3.4 GM/DL (3.2-5.2); ALT/SGPT 65 U/L (12-78); BILIRUBIN,TOTAL 0.2 MG/DL (0.2-1.0); BLOOD UREA NITROGEN 14 MG/DL (7-18); CALCIUM LEVEL 9.4 MG/DL (8.8-10.2); CARBON DIOXIDE LEVEL 26 MEQ/L (21-32); CHLORIDE LEVEL 111 MEQ/L (98-107); CHOLESTEROL LEVEL 224 MG/DL (<200); CHOLESTEROL RISK RATIO 2.434 (<5); FREE T4 1.16 NG/DL (0.76-1.46); GLOMERULAR FILTRATION RATE > 60.0 (>45); GLUCOSE, FASTING 101 MG/DL (70-100); HDL CHOLESTEROL 92 MG/DL (>40); IRON (FE) 26 UG/DL (50-170); LDL CHOLESTEROL 112 MG/DL (<100); NON-HDL-C 132 MG/DL; POTASSIUM SERUM 4.6 MEQ/L (3.5-5.1); SODIUM LEVEL 142 MEQ/L (136-145); THYROID STIMULATING HORMONE 0.424 uIU/ML (0.358-3.740); TOTAL PROTEIN 6.8 GM/DL (6.4-8.2); TRIGLYCERIDES LEVEL 99 MG/DL (<150)
[2021-08-22 19:20] LABS: HEMOGLOBIN A1c 5.7 %
[2021-08-28 16:17] LABS: VITAMIN B12 LEVEL 504 PG/ML (247-911)
== END ==
LOC: M PLALAB 15:47
PROVIDERS: ATTEND Physician Assistant Medical
DX: R79.89 Other specified abnormal findings of blood chemistry (principal); D50.9 Iron deficiency anemia, unspecified; E03.9 Hypothyroidism, unspecified; E53.8 Deficiency of other specified B group vitamins; E66.9 Obesity, unspecified; Z13.220 Encounter for screening for lipoid disorders

== ENCOUNTER → 2021-09-11 | Outpatient (CLI) | payer MEDICARE, MEDICAID ==
[~2021-09-11] VITALS: Ht 144.8 cm; Wt 69.0 kg
[~2021-09-11] MED LIST changes: +IMMUNE GLOBULIN 10% 20 GM in IV 1 EA IV ONE; +IMMUNE GLOBULIN 10% 5 GM in IV 1 EA IV ONE
[2021-09-11 15:00] VITALS: BP 132/80
[2021-09-11 15:05] VITALS: BP 148/82
[2021-09-11 15:30] VITALS: BP 129/79
[2021-09-11 16:58] VITALS: BP 128/85
== END ==
LOC: M INFU 14:01
PROVIDERS: ATTEND Allergy & Immunology Allergy
DX: D83.9 Common variable immunodeficiency, unspecified (principal); Z88.0 Allergy status to penicillin; Z88.1 Allergy status to other antibiotic agents
CPT/HCPCS: 96365; 96366; J1459

== ENCOUNTER 2021-10-09 14:00 | Outpatient (CLI) | payer MEDICARE, MEDICAID ==
[~2021-10-09] VITALS: Ht 147.3 cm; Wt 69.0 kg
[~2021-10-09 14:00] MED LIST changes: +ACETAMINOPHEN TAB 650MG DOSE (2X325MG) PO PRN; +EPINEPHrine INJ 1 MG/ML 1ML AMP IM PRN; +diphenhydrAMINE 25MG CAP PO PRN
[2021-10-09 14:30] VITALS: BP 136/90
[2021-10-09 15:30] VITALS: BP 145/78
[2021-10-09 16:50] VITALS: BP 140/85
== END 2021-10-09 16:51 | disposition home or self-care (01) ==
LOC: M INFU 14:00
PROVIDERS: ATTEND Allergy & Immunology Allergy
DX: D83.9 Common variable immunodeficiency, unspecified (principal); Z88.0 Allergy status to penicillin; Z88.1 Allergy status to other antibiotic agents
CPT/HCPCS: 96365; 96366; J1459

== ENCOUNTER → 2021-10-31 | Outpatient (CLI) | payer MEDICARE, MEDICAID ==
[~2021-10-31] MED LIST changes: -ACETAMINOPHEN TAB 650MG DOSE (2X325MG) PO PRN; -EPINEPHrine INJ 1 MG/ML 1ML AMP IM PRN; -IMMUNE GLOBULIN 10% 20 GM in IV 1 EA IV ONE; -IMMUNE GLOBULIN 10% 5 GM in IV 1 EA IV ONE; -diphenhydrAMINE 25MG CAP PO PRN
== END ==
LOC: M WHC 14:52
PROVIDERS: ATTEND Physician Assistant Medical
DX: Z12.31 Encounter for screening mammogram for malignant neoplasm of breast (principal); R92.8 Other abnormal and inconclusive findings on diagnostic imaging of breast; N63.11 Unspecified lump in the right breast, upper outer quadrant

== ENCOUNTER 2021-11-06 13:49 | Outpatient (CLI) | payer MEDICARE, MEDICAID ==
[~2021-11-06] VITALS: Ht 144.8 cm; Wt 69.1 kg
[~2021-11-06 13:49] MED LIST changes: +EPINEPHrine INJ 1 MG/ML 1ML AMP IM PRN
[2021-11-06] MEDS ORDERED: ACETAMINOPHEN TAB 650MG DOSE (2X325MG) PO ONE (14:00)
[2021-11-06] MEDS ORDERED: NS 1,000 ML IV SCH (14:00)
[2021-11-06] MEDS ORDERED: IMMUNE GLOBULIN 10% 20 GM in IV 1 EA IV ONE (14:00)
[2021-11-06] MEDS ORDERED: IMMUNE GLOBULIN 10% 5 GM in IV 1 EA IV ONE (14:00)
[2021-11-06] MEDS ORDERED: diphenhydrAMINE 25MG CAP PO ONE (14:00)
[2021-11-06 14:05] VITALS: BP 164/84
[2021-11-06 14:45] VITALS: BP 148/72
[2021-11-06 15:15] VITALS: BP 126/76
[2021-11-06 15:45] VITALS: BP 138/88
[2021-11-06 17:00] VITALS: BP 144/71
== END 2021-11-06 17:00 | disposition home or self-care (01) ==
LOC: M INFU 13:49
PROVIDERS: ATTEND Allergy & Immunology Allergy
DX: D83.9 Common variable immunodeficiency, unspecified (principal); Z88.0 Allergy status to penicillin; Z88.1 Allergy status to other antibiotic agents
CPT/HCPCS: 96365; 96366; J1459

== ENCOUNTER → 2021-11-14 | Outpatient (CLI) | payer MEDICARE, MEDICAID ==
[~2021-11-14] MED LIST changes: -EPINEPHrine INJ 1 MG/ML 1ML AMP IM PRN
== END ==
LOC: M WHC 13:30
PROVIDERS: ATTEND Physician Assistant Medical
DX: R92.8 Other abnormal and inconclusive findings on diagnostic imaging of breast (principal)
CPT/HCPCS: 77065; G0279

== ENCOUNTER 2021-12-04 13:25 | Outpatient (CLI) | payer MEDICARE, MEDICAID ==
[~2021-12-04] VITALS: Ht 144.8 cm; Wt 69.0 kg
[2021-12-04 13:50] LABS: BASO % 0.7 % (0.0-1.0); EOS # 0.3 10^3/uL (0.0-0.5); EOS % 4.8 % (0.0-3.0); HEMATOCRIT 31.3 % (36.0-47.0); HEMOGLOBIN 9.7 g/dl (12.0-15.5); LYMPH # 0.6 10^3/uL (1.5-5.0); LYMPH % 10.4 % (24.0-44.0); MEAN CORPUSCULAR HEMOGLOBIN 22.4 pg (27.0-33.0); MEAN CORPUSCULAR VOLUME 72.3 fl (80.0-96.0); MONO # 0.5 10^3/uL (0.0-0.8); MONO % 9.5 % (2.0-8.0); NEUTROPHILS # 4.2 10^3/uL (1.5-8.5); NEUTROPHILS % 74.2 % (36.0-66.0); PLATELET COUNT, AUTOMATED 307 10^3/uL (150-450); RED BLOOD COUNT 4.33 10^6/uL (4.00-5.40); WHITE BLOOD COUNT 5.6 10^3/uL (4.0-10.0)
[2021-12-04] MEDS ORDERED: ACETAMINOPHEN TAB 650MG DOSE (2X325MG) PO ONE (14:00)
[2021-12-04] MEDS ORDERED: IMMUNE GLOBULIN 10% 20 GM in IV 1 EA IV ONE (14:00)
[2021-12-04] MEDS ORDERED: diphenhydrAMINE 25MG CAP PO ONE (14:00)
[2021-12-04] MEDS ORDERED: IMMUNE GLOBULIN 10% 5 GM in IV 1 EA IV ONE (14:00)
[2021-12-04] MEDS ORDERED: NS 1,000 ML IV SCH (14:00)
[2021-12-04] MEDS ORDERED: EPINEPHrine INJ 1 MG/ML 1ML AMP IM PRN (14:00)
[2021-12-04 14:30] VITALS: BP 136/86
[2021-12-04 14:30] LABS: ALBUMIN 3.2 GM/DL (3.2-5.2); ALT/SGPT 44 U/L (12-78); BILIRUBIN,TOTAL 0.4 MG/DL (0.2-1.0); BLOOD UREA NITROGEN 17 MG/DL (7-18); CALCIUM LEVEL 9.6 MG/DL (8.8-10.2); CARBON DIOXIDE LEVEL 22 MEQ/L (21-32); CHLORIDE LEVEL 110 MEQ/L (98-107); CREATININE FOR GFR 0.66 MG/DL (0.55-1.30); GLOMERULAR FILTRATION RATE > 60.0 (>45); GLUCOSE, FASTING 104 MG/DL (70-100); IMMUNOGLOBULIN G 699 MG/DL (681-1648); POTASSIUM SERUM 4.4 MEQ/L (3.5-5.1); SODIUM LEVEL 140 MEQ/L (136-145); TOTAL PROTEIN 6.3 GM/DL (6.4-8.2)
[2021-12-04 15:13] VITALS: BP 169/84
[2021-12-04 16:30] VITALS: BP 145/84
== END 2021-12-04 16:30 | disposition home or self-care (01) ==
LOC: M INFU 13:25
PROVIDERS: ATTEND Allergy & Immunology Allergy
DX: D83.9 Common variable immunodeficiency, unspecified (principal); Z88.0 Allergy status to penicillin; Z88.1 Allergy status to other antibiotic agents
CPT/HCPCS: 36592; 80053; 82784; 85025; 96365; 96366; J1459

== ENCOUNTER 2022-01-04 13:50 | Outpatient (CLI) | payer MEDICARE, MEDICAID ==
[~2022-01-04] VITALS: Ht 144.8 cm; Wt 69.0 kg
[~2022-01-04 13:50] MED LIST changes: +EPINEPHrine INJ 1 MG/ML 1ML AMP IM PRN
[2022-01-04 13:55] VITALS: BP 144/78
[2022-01-04] MEDS ORDERED: IMMUNE GLOBULIN 10% 20 GM in IV 1 EA IV ONE (14:00)
[2022-01-04] MEDS ORDERED: IMMUNE GLOBULIN 10% 5 GM in IV 1 EA IV ONE (14:00)
[2022-01-04] MEDS ORDERED: diphenhydrAMINE 25MG CAP PO PRN ×2 (14:00→14:30)
[2022-01-04] MEDS ORDERED: ACETAMINOPHEN TAB 650MG DOSE (2X325MG) PO PRN (14:00)
[2022-01-04 15:00] VITALS: BP 152/76
[2022-01-04 15:30] VITALS: BP 132/72
[2022-01-04 16:55] VITALS: BP 140/82
== END 2022-01-04 16:55 | disposition home or self-care (01) ==
LOC: M INFU 13:50
PROVIDERS: ATTEND Allergy & Immunology Allergy
DX: D83.9 Common variable immunodeficiency, unspecified (principal); Z88.0 Allergy status to penicillin; Z88.1 Allergy status to other antibiotic agents
CPT/HCPCS: 96365; 96366; J1459

== ENCOUNTER → 2022-01-10 | Outpatient (CLI) | payer MEDICARE, MEDICAID ==
[~2022-01-10] MED LIST changes: -EPINEPHrine INJ 1 MG/ML 1ML AMP IM PRN
[2022-01-10 15:22] LABS: BASO % 0.7 % (0.0-1.0); EOS # 0.2 10^3/uL (0.0-0.5); EOS % 4.4 % (0.0-3.0); HEMATOCRIT 33.5 % (36.0-47.0); HEMOGLOBIN 10.1 g/dl (12.0-15.5); LYMPH # 0.6 10^3/uL (1.5-5.0); LYMPH % 11.8 % (24.0-44.0); MEAN CORPUSCULAR HEMOGLOBIN 21.9 pg (27.0-33.0); MEAN CORPUSCULAR HGB CONC 30.1 g/dl (32.0-36.5); MEAN CORPUSCULAR VOLUME 72.5 fl (80.0-96.0); MONO # 0.6 10^3/uL (0.0-0.8); MONO % 11.6 % (2.0-8.0); NEUTROPHILS # 3.8 10^3/uL (1.5-8.5); NEUTROPHILS % 70.9 % (36.0-66.0); PLATELET COUNT, AUTOMATED 327 10^3/uL (150-450); RED BLOOD COUNT 4.62 10^6/uL (4.00-5.40); WHITE BLOOD COUNT 5.4 10^3/uL (4.0-10.0)
[2022-01-10 15:35] LABS: INR 0.92; PARTIAL THROMBOPLASTIN TIME 26.9 SECONDS (25.9-37.0); PROTHROMBIN TIME 12.8 SECONDS (12.7-14.5)
[2022-01-10 16:02] LABS: ALBUMIN 3.3 GM/DL (3.2-5.2); ALT/SGPT 33 U/L (12-78); BILIRUBIN,TOTAL 0.4 MG/DL (0.2-1.0); BLOOD UREA NITROGEN 16 MG/DL (7-18); CALCIUM LEVEL 8.8 MG/DL (8.8-10.2); CARBON DIOXIDE LEVEL 24 MEQ/L (21-32); CHLORIDE LEVEL 107 MEQ/L (98-107); CREATININE FOR GFR 0.58 MG/DL (0.55-1.30); FERRITIN 6 NG/ML (8-252); FREE T4 1.42 NG/DL (0.76-1.46); GLOMERULAR FILTRATION RATE > 60.0 (>45); GLUCOSE, FASTING 86 MG/DL (70-100); IRON (FE) 36 UG/DL (50-170); POTASSIUM SERUM 4.2 MEQ/L (3.5-5.1); SODIUM LEVEL 136 MEQ/L (136-145); THYROID STIMULATING HORMONE 0.154 uIU/ML (0.358-3.740); TOTAL PROTEIN 6.9 GM/DL (6.4-8.2)
[2022-01-10 16:25] LABS: HEPATITIS B SURFACE ANTIBODY POSITIVE (POSITIVE)
[2022-01-10 16:48] LABS: HEPATITIS B SURFACE ANTIGEN NEGATIVE (NEGATIVE)
[2022-01-14 17:08] LABS: AFP TUMOR TOTAL 4.1 ng/mL (0.0-9.2); ANA (HEP2) Negative (.); ANTI-MITOCHONDRIAL ANTIBODY <20.0 Units (0.0-20.0); HEPATITIS A IgG TOTAL Positive (Negative); HEPATITIS C QUANTITATION HCV Not Detected IU/mL (.)
== END ==
LOC: M LAB 13:46
PROVIDERS: ATTEND Physician Assistant Medical
DX: D50.9 Iron deficiency anemia, unspecified (principal); I10 Essential (primary) hypertension; E03.9 Hypothyroidism, unspecified; R79.89 Other specified abnormal findings of blood chemistry

== ENCOUNTER 2022-02-01 13:20 | Outpatient (CLI) | payer MEDICARE, MEDICAID ==
[~2022-02-01] VITALS: Ht 149.9 cm; Wt 69.0 kg
[2022-02-01 13:30] VITALS: BP 161/79
[2022-02-01] MEDS ORDERED: ACETAMINOPHEN TAB 650MG DOSE (2X325MG) PO PRN (14:00)
[2022-02-01] MEDS ORDERED: IMMUNE GLOBULIN 10% 5 GM in IV 1 EA IV ONE (14:00)
[2022-02-01] MEDS ORDERED: IMMUNE GLOBULIN 10% 20 GM in IV 1 EA IV ONE (14:00)
[2022-02-01] MEDS ORDERED: EPINEPHrine INJ 1 MG/ML 1ML AMP IM PRN (14:00)
[2022-02-01] MEDS ORDERED: diphenhydrAMINE 25MG CAP PO PRN (14:00)
[2022-02-01 14:30] VITALS: BP 138/72
[2022-02-01 15:31] VITALS: BP 124/81
[2022-02-01 16:12] VITALS: BP 164/87
== END 2022-02-01 16:15 | disposition home or self-care (01) ==
LOC: M INFU 13:20
PROVIDERS: ATTEND Allergy & Immunology Allergy
DX: D83.9 Common variable immunodeficiency, unspecified (principal); Z88.0 Allergy status to penicillin; Z88.1 Allergy status to other antibiotic agents
CPT/HCPCS: 96365; 96366; J1459

== ENCOUNTER → 2022-02-11 | Outpatient (CLI) | payer MEDICARE | LOC: M RAD 08:57 | PROVIDERS: ATTEND Physician Assistant Medical | DX: R79.89 Other specified abnormal findings of blood chemistry (principal) ==

== ENCOUNTER 2022-03-01 13:15 | Outpatient (CLI) | payer MEDICARE, MEDICAID ==
[~2022-03-01] VITALS: Ht 149.9 cm; Wt 69.0 kg
[2022-03-01 13:30] VITALS: BP 127/76
[2022-03-01] MEDS ORDERED: ACETAMINOPHEN TAB 650MG DOSE (2X325MG) PO PRN (14:00)
[2022-03-01] MEDS ORDERED: IMMUNE GLOBULIN 10% 5 GM in IV 1 EA IV ONE (14:00)
[2022-03-01] MEDS ORDERED: IMMUNE GLOBULIN 10% 20 GM in IV 1 EA IV ONE (14:00)
[2022-03-01] MEDS ORDERED: EPINEPHrine INJ 1 MG/ML 1ML AMP IM PRN (14:00)
[2022-03-01] MEDS ORDERED: diphenhydrAMINE 25MG CAP PO PRN (14:00)
[2022-03-01 14:30] VITALS: BP 149/95
[2022-03-01 15:00] VITALS: BP 138/84
[2022-03-01 15:30] VITALS: BP 134/81
[2022-03-01 16:43] VITALS: BP 157/99
== END 2022-03-01 16:45 | disposition home or self-care (01) ==
LOC: M INFU 13:15
PROVIDERS: ATTEND Allergy & Immunology Allergy
DX: D83.9 Common variable immunodeficiency, unspecified (principal); Z88.0 Allergy status to penicillin; Z88.1 Allergy status to other antibiotic agents
CPT/HCPCS: 96365; 96366; C1751; J1459

== ENCOUNTER 2022-03-27 12:45 | Outpatient (CLI) | payer MEDICARE, MEDICAID ==
[~2022-03-27] VITALS: Ht 142.2 cm; Wt 69.0 kg
[~2022-03-27 12:45] MED LIST changes: +IMMUNE GLOBULIN 10% 5 GM in IV 1 EA IV ONE
[2022-03-27 13:30] VITALS: BP 151/81
[2022-03-27] MEDS ORDERED: ACETAMINOPHEN TAB 650MG DOSE (2X325MG) PO PRN (13:30)
[2022-03-27] MEDS ORDERED: diphenhydrAMINE 25MG CAP PO PRN (13:30)
[2022-03-27] MEDS ORDERED: IMMUNE GLOBULIN 10% 5 GM in IV 1 EA IV ONE (13:30)
[2022-03-27] MEDS ORDERED: EPINEPHrine INJ 1 MG/ML 1ML AMP IM PRN (13:30)
[2022-03-27] MEDS ORDERED: IMMUNE GLOBULIN 10% 20 GM in IV 1 EA IV ONE (13:30)
[2022-03-27 14:15] VITALS: BP 167/90
[2022-03-27 15:14] VITALS: BP 136/88
[2022-03-27 16:20] VITALS: BP 151/82
== END 2022-03-27 16:20 | disposition home or self-care (01) ==
LOC: M INFU 12:45
PROVIDERS: ATTEND Allergy & Immunology Allergy
DX: D83.9 Common variable immunodeficiency, unspecified (principal); Z88.0 Allergy status to penicillin; Z88.1 Allergy status to other antibiotic agents
CPT/HCPCS: 96365; 96366; J1459

== ENCOUNTER → 2022-04-24 | Outpatient (CLI) | payer MEDICARE ==
[~2022-04-24] MED LIST changes: +ACETAMINOPHEN TAB 650MG DOSE (2X325MG) PO PRN; +EPINEPHrine INJ 1 MG/ML 1ML AMP IM PRN; +IMMUNE GLOBULIN 10% 20 GM in IV 1 EA IV ONE; -PAXI20TA29 PO; +PAXI20TA30 PO; +diphenhydrAMINE 25MG CAP PO PRN
[2022-04-24 13:40] VITALS: BP 160/92
[2022-04-24 14:30] VITALS: BP 163/88
[2022-04-24 15:00] VITALS: BP 129/82
[2022-04-24 15:30] VITALS: BP 130/74
[2022-04-24 16:00] VITALS: BP 135/74
[2022-04-24 17:00] VITALS: BP 135/83
== END ==
LOC: M INFU 13:55
PROVIDERS: ATTEND Allergy & Immunology Allergy
DX: D83.9 Common variable immunodeficiency, unspecified (principal); Z88.0 Allergy status to penicillin; Z88.1 Allergy status to other antibiotic agents
CPT/HCPCS: 96365; 96366; J1459

== ENCOUNTER → 2022-05-02 | Outpatient (CLI) | payer MEDICARE, MEDICAID ==
[~2022-05-02] MED LIST changes: -ACETAMINOPHEN TAB 650MG DOSE (2X325MG) PO PRN; -EPINEPHrine INJ 1 MG/ML 1ML AMP IM PRN; -IMMUNE GLOBULIN 10% 20 GM in IV 1 EA IV ONE; -IMMUNE GLOBULIN 10% 5 GM in IV 1 EA IV ONE; -diphenhydrAMINE 25MG CAP PO PRN
[2022-05-02 18:22] LABS: BASO % 0.6 % (0.0-1.0); EOS # 0.1 10^3/uL (0.0-0.5); EOS % 2.9 % (0.0-3.0); HEMATOCRIT 39.7 % (36.0-47.0); HEMOGLOBIN 12.3 g/dl (12.0-15.5); LYMPH # 0.7 10^3/uL (1.5-5.0); LYMPH % 14.4 % (24.0-44.0); MEAN CORPUSCULAR HEMOGLOBIN 25.3 pg (27.0-33.0); MEAN CORPUSCULAR VOLUME 81.7 fl (80.0-96.0); MONO # 0.5 10^3/uL (0.0-0.8); MONO % 9.7 % (2.0-8.0); NEUTROPHILS # 3.5 10^3/uL (1.5-8.5); NEUTROPHILS % 72.2 % (36.0-66.0); PLATELET COUNT, AUTOMATED 325 10^3/uL (150-450); RED BLOOD COUNT 4.86 10^6/uL (4.00-5.40); WHITE BLOOD COUNT 4.9 10^3/uL (4.0-10.0)
[2022-05-02 18:38] LABS: ERYTHROCYTE SEDIMENTATION RATE 53 mm/hr (0-30)
[2022-05-02 18:45] LABS: C REACTIVE PROTEIN QUANTITATIV < 0.40 MG/DL (<1.0)
[2022-05-02 18:47] LABS: FERRITIN 9.2 NG/ML (7.3-270.7); IRON (FE) 58 UG/DL (50-170)
== END ==
LOC: M PLALAB 15:33
PROVIDERS: ATTEND Physician Assistant Medical
DX: J32.9 Chronic sinusitis, unspecified (principal); J06.9 Acute upper respiratory infection, unspecified

== ENCOUNTER → 2022-05-03 | Outpatient (REF) | payer MEDICARE, MEDICAID | LOC: M SFHCPLAZ 12:17 | PROVIDERS: ATTEND Physician Assistant Medical | DX: J32.9 Chronic sinusitis, unspecified (principal) ==

== ENCOUNTER 2022-05-15 13:30 | Outpatient (CLI) | payer MEDICARE, MEDICAID ==
[~2022-05-15] VITALS: Ht 149.9 cm; Wt 69.0 kg
[2022-05-15 13:30] VITALS: BP 151/94
[~2022-05-15 13:30] MED LIST changes: +ALBUTEROL SULFATE 2.5MG/0.5ML INH NEB SOLN INH PRN; +EPINEPHrine INJ 1 MG/ML 1ML AMP IM PRN; +diphenhydrAMINE 50MG/ML VIAL IV PRN; +methylPREDNISolone 125MG 2ML VIAL IV PRN
[2022-05-15] MEDS ORDERED: IRON SUCROSE 225 MG in NS 225 ML IV ONE (14:00)
[2022-05-15] MEDS ORDERED: IRON SUCROSE 225 MG in NS 213.75 ML IV ONE (14:00)
[2022-05-15] MEDS ORDERED: NS 1,000 ML IV SCH (14:00)
[2022-05-15 15:00] VITALS: BP 134/71
[2022-05-15 16:20] VITALS: BP 139/87
[2022-05-15 16:40] VITALS: BP 143/88
== END 2022-05-15 16:40 | disposition home or self-care (01) ==
LOC: M INFU 13:30
PROVIDERS: ATTEND Physician Assistant Medical
DX: D50.9 Iron deficiency anemia, unspecified (principal); Z88.0 Allergy status to penicillin; Z88.1 Allergy status to other antibiotic agents
CPT/HCPCS: 96365; 96366; J1756

== ENCOUNTER 2022-05-22 13:30 | Outpatient (CLI) | payer MEDICARE, MEDICAID ==
[~2022-05-22] VITALS: Ht 149.9 cm; Wt 72.7 kg
[2022-05-22 13:30] VITALS: BP 149/84
[~2022-05-22 13:30] MED LIST changes: -ALBUTEROL SULFATE 2.5MG/0.5ML INH NEB SOLN INH PRN; -EPINEPHrine INJ 1 MG/ML 1ML AMP IM PRN; -diphenhydrAMINE 50MG/ML VIAL IV PRN; -methylPREDNISolone 125MG 2ML VIAL IV PRN
[2022-05-22] MEDS ORDERED: diphenhydrAMINE 25MG CAP PO PRN (14:00)
[2022-05-22] MEDS ORDERED: EPINEPHrine INJ 1 MG/ML 1ML AMP IM PRN (14:00)
[2022-05-22] MEDS ORDERED: ACETAMINOPHEN TAB 650MG DOSE (2X325MG) PO PRN (14:00)
[2022-05-22] MEDS ORDERED: IMMUNE GLOBULIN 10% 5 GM in IV 1 EA IV ONE (14:00)
[2022-05-22] MEDS ORDERED: IMMUNE GLOBULIN 10% 20 GM in IV 1 EA IV ONE (14:00)
[2022-05-22 14:15] VITALS: BP 166/99
[2022-05-22 14:45] VITALS: BP 142/79
[2022-05-22 15:15] VITALS: BP 139/78
[2022-05-22 16:30] VITALS: BP 163/82
== END 2022-05-22 16:30 | disposition home or self-care (01) ==
LOC: M INFU 13:30
PROVIDERS: ATTEND Allergy & Immunology Allergy
DX: D83.9 Common variable immunodeficiency, unspecified (principal); Z88.0 Allergy status to penicillin; Z88.1 Allergy status to other antibiotic agents
CPT/HCPCS: 96365; 96366; J1459

== ENCOUNTER → 2022-06-03 | Outpatient (CLI) | payer MEDICARE, MEDICAID ==
[2022-06-03 16:26] LABS: BASO % 0.7 % (0.0-1.0); EOS # 0.1 10^3/uL (0.0-0.5); EOS % 3.4 % (0.0-3.0); HEMATOCRIT 42.7 % (36.0-47.0); HEMOGLOBIN 13.4 g/dl (12.0-15.5); LYMPH # 0.6 10^3/uL (1.5-5.0); MEAN CORPUSCULAR HEMOGLOBIN 26.6 pg (27.0-33.0); MEAN CORPUSCULAR HGB CONC 31.4 g/dl (32.0-36.5); MEAN CORPUSCULAR VOLUME 84.9 fl (80.0-96.0); MONO # 0.4 10^3/uL (0.0-0.8); MONO % 10.8 % (2.0-8.0); NEUTROPHILS # 2.9 10^3/uL (1.5-8.5); NEUTROPHILS % 70.9 % (36.0-66.0); PLATELET COUNT, AUTOMATED 274 10^3/uL (150-450); RED BLOOD COUNT 5.03 10^6/uL (4.00-5.40); WHITE BLOOD COUNT 4.1 10^3/uL (4.0-10.0)
[2022-06-03 16:51] LABS: ALBUMIN 3.6 G/DL (3.2-5.2); ALKALINE PHOSPHATASE 219 U/L (46-116); ALT/SGPT 71 U/L (7.0-40); AST/SGOT 45 U/L (<34); BILIRUBIN,TOTAL 0.5 MG/DL (0.3-1.2); BLOOD UREA NITROGEN 15 MG/DL (9-23); CARBON DIOXIDE LEVEL 25 MMOL/L (20-31); CHLORIDE LEVEL 106 MMOL/L (98-107); CHOLESTEROL LEVEL 208 MG/DL (<200); CREATININE FOR GFR 0.55 MG/DL (0.55-1.30); GLOMERULAR FILTRATION RATE > 60.0 (>45); GLUCOSE, FASTING 73 MG/DL (74-106); HDL CHOLESTEROL 79.8 MG/DL (>40); IRON (FE) 97 UG/DL (50-170); LDL CHOLESTEROL 110.2 MG/DL (<100); NON-HDL-C 128 MG/DL; POTASSIUM SERUM 4.3 MMOL/L (3.5-5.1); PTH INTACT 73.3 PG/ML (18.5-88.0); SODIUM LEVEL 140 MMOL/L (136-145); TOTAL PROTEIN 6.8 G/DL (5.7-8.2); TRIGLYCERIDES LEVEL 90 MG/DL (<150)
[2022-06-03 16:52] LABS: FERRITIN 105.5 NG/ML (7.3-270.7)
[2022-06-03 16:53] LABS: FREE T4 1.35 NG/DL (0.89-1.76); THYROID STIMULATING HORMONE 0.716 uIU/ML (0.55-4.78); TOTAL 25(OH) VITAMIN D 48.3 NG/ML (20.0-100.0)
[2022-06-03 16:54] LABS: VITAMIN B12 LEVEL 618 PG/ML (211-911)
== END ==
LOC: M PLALAB 12:41
PROVIDERS: ATTEND Physician Assistant Medical
DX: D50.9 Iron deficiency anemia, unspecified (principal); E55.9 Vitamin D deficiency, unspecified; E03.9 Hypothyroidism, unspecified; R79.89 Other specified abnormal findings of blood chemistry; Z13.220 Encounter for screening for lipoid disorders; E53.8 Deficiency of other specified B group vitamins; Z79.899 Other long term (current) drug therapy

== ENCOUNTER → 2022-07-12 | Outpatient (REF) | payer MEDICARE, MEDICAID | LOC: M SFHCPLAZ 13:11 | PROVIDERS: ATTEND Physician Assistant | DX: J01.90 Acute sinusitis, unspecified (principal) ==

== ENCOUNTER 2022-07-22 14:00 | Outpatient (CLI) | payer MEDICARE, MEDICAID ==
[2022-07-22 14:00] VITALS: BP 141/90
[~2022-07-22 14:00] MED LIST changes: +ACETAMINOPHEN TAB 650MG DOSE (2X325MG) PO PRN; +EPINEPHrine INJ 1 MG/ML 1ML AMP IM PRN; +IMMUNE GLOBULIN 10% 20 GM in IV 1 EA IV ONE; +IMMUNE GLOBULIN 10% 5 GM in IV 1 EA IV ONE; +diphenhydrAMINE 25MG CAP PO PRN
[2022-07-22 15:14] VITALS: BP 148/84
[2022-07-22 16:56] VITALS: BP 167/72
== END 2022-07-22 17:00 | disposition home or self-care (01) ==
LOC: M INFU 14:00
PROVIDERS: ATTEND Allergy & Immunology Allergy
DX: D83.9 Common variable immunodeficiency, unspecified (principal); Z88.0 Allergy status to penicillin; Z88.1 Allergy status to other antibiotic agents
CPT/HCPCS: 96365; 96366; J1459

== ENCOUNTER → 2022-07-29 | Outpatient (CLI) | payer MEDICARE, MEDICAID ==
[~2022-07-29] MED LIST changes: -ACETAMINOPHEN TAB 650MG DOSE (2X325MG) PO PRN; -EPINEPHrine INJ 1 MG/ML 1ML AMP IM PRN; -IMMUNE GLOBULIN 10% 20 GM in IV 1 EA IV ONE; -IMMUNE GLOBULIN 10% 5 GM in IV 1 EA IV ONE; -diphenhydrAMINE 25MG CAP PO PRN
== END ==
LOC: M WHC 13:02
PROVIDERS: ATTEND Physician Assistant Medical
DX: Z13.820 Encounter for screening for osteoporosis (principal); M81.0 Age-related osteoporosis without current pathological fracture

== ENCOUNTER → 2022-08-15 | Outpatient (CLI) | payer MEDICARE, MEDICAID ==
[~2022-08-15] MED LIST changes: +FLUT50SP17 NS; -FLUTISP NS
[2022-08-15 11:43] LABS: BASO % 0.8 % (0.0-1.0); EOS # 0.1 10^3/uL (0.0-0.5); EOS % 1.7 % (0.0-3.0); HEMATOCRIT 40.8 % (36.0-47.0); HEMOGLOBIN 13.6 g/dl (12.0-15.5); LYMPH # 0.6 10^3/uL (1.5-5.0); LYMPH % 11.6 % (24.0-44.0); MEAN CORPUSCULAR HEMOGLOBIN 29.7 pg (27.0-33.0); MEAN CORPUSCULAR HGB CONC 33.3 g/dl (32.0-36.5); MEAN CORPUSCULAR VOLUME 89.1 fl (80.0-96.0); MONO # 0.5 10^3/uL (0.0-0.8); MONO % 10.7 % (2.0-8.0); NEUTROPHILS # 3.6 10^3/uL (1.5-8.5); NEUTROPHILS % 74.8 % (36.0-66.0); PLATELET COUNT, AUTOMATED 246 10^3/uL (150-450); RED BLOOD COUNT 4.58 10^6/uL (4.00-5.40); WHITE BLOOD COUNT 4.8 10^3/uL (4.0-10.0)
[2022-08-15 12:34] LABS: ALBUMIN 3.5 G/DL (3.2-5.2); ALKALINE PHOSPHATASE 181 U/L (46-116); ALT/SGPT 102 U/L (7.0-40); AST/SGOT 61 U/L (<34); BILIRUBIN,TOTAL 0.6 MG/DL (0.3-1.2); BLOOD UREA NITROGEN 13 MG/DL (9-23); CALCIUM LEVEL 8.6 MG/DL (8.3-10.6); CARBON DIOXIDE LEVEL 27 MMOL/L (20-31); CHLORIDE LEVEL 108 MMOL/L (98-107); CREATININE FOR GFR 0.55 MG/DL (0.55-1.30); GLOMERULAR FILTRATION RATE > 60.0 (>45); GLUCOSE, FASTING 79 MG/DL (74-106); IMMUNOGLOBULIN G 732 MG/DL (650-1600); POTASSIUM SERUM 4.1 MMOL/L (3.5-5.1); SODIUM LEVEL 142 MMOL/L (136-145); TOTAL PROTEIN 6.1 G/DL (5.7-8.2)
== END ==
LOC: M LAB 11:06
PROVIDERS: ATTEND Allergy & Immunology Allergy
DX: D83.9 Common variable immunodeficiency, unspecified (principal)

== ENCOUNTER → 2022-09-04 | Outpatient (REF) | payer MEDICARE, MEDICAID | LOC: M SFHCPLAZ 15:24 | PROVIDERS: ATTEND Physician Assistant Medical | DX: R79.89 Other specified abnormal findings of blood chemistry (principal) ==

== ENCOUNTER → 2022-09-10 | Outpatient (CLI) | payer MEDICARE, MEDICAID | LOC: M PLAIMG 15:24 | PROVIDERS: ATTEND Physician Assistant | DX: M19.041 Primary osteoarthritis, right hand (principal) ==

== ENCOUNTER → 2022-10-03 | Outpatient (CLI) | payer MEDICARE, MEDICAID ==
[2022-10-03 15:21] LABS: BASO % 0.5 % (0.0-1.0); EOS # 0.1 10^3/uL (0.0-0.5); EOS % 2.3 % (0.0-3.0); HEMATOCRIT 40.8 % (36.0-47.0); HEMOGLOBIN 13.6 g/dl (12.0-15.5); LYMPH # 0.6 10^3/uL (1.5-5.0); LYMPH % 10.3 % (24.0-44.0); MEAN CORPUSCULAR HEMOGLOBIN 30.2 pg (27.0-33.0); MEAN CORPUSCULAR HGB CONC 33.3 g/dl (32.0-36.5); MEAN CORPUSCULAR VOLUME 90.7 fl (80.0-96.0); MONO # 0.5 10^3/uL (0.0-0.8); MONO % 8.1 % (2.0-8.0); NEUTROPHILS # 4.3 10^3/uL (1.5-8.5); NEUTROPHILS % 78.3 % (36.0-66.0); PLATELET COUNT, AUTOMATED 283 10^3/uL (150-450); WHITE BLOOD COUNT 5.6 10^3/uL (4.0-10.0)
[2022-10-03 15:43] LABS: URIC ACID 4.1 MG/DL (3.1-7.8)
[2022-10-03 15:46] LABS: ALT/SGPT 64 U/L (7.0-40); AST/SGOT 41 U/L (<34); BLOOD UREA NITROGEN 14 MG/DL (9-23); CREATININE FOR GFR 0.57 MG/DL (0.55-1.30); GLOMERULAR FILTRATION RATE > 60.0 (>45)
[2022-10-03 16:06] LABS: HEPATITIS B SURFACE ANTIGEN NEGATIVE (NEGATIVE)
[2022-10-03 16:27] LABS: HEPATITIS B CORE ANTIBODY IGM NEGATIVE (NEGATIVE); HEPATITIS C VIRUS ABY INDEX 0.1 INDEX (<0.8)
== END ==
LOC: M LAB 13:58
PROVIDERS: ATTEND Allergy & Immunology Allergy
DX: R74.01 Elevation of levels of liver transaminase levels (principal); Z79.899 Other long term (current) drug therapy

== ENCOUNTER 2022-10-08 13:45 | Outpatient (CLI) | payer MEDICARE, MEDICAID ==
[~2022-10-08] VITALS: Ht 149.9 cm; Wt 72.7 kg
[2022-10-08] MEDS ORDERED: IMMUNE GLOBULIN 10% 5 GM in IV 1 EA IV ONE (14:00)
[2022-10-08] MEDS ORDERED: diphenhydrAMINE 25MG CAP PO PRN (14:00)
[2022-10-08] MEDS ORDERED: EPINEPHrine INJ 1 MG/ML 1ML AMP IM PRN (14:00)
[2022-10-08] MEDS ORDERED: ACETAMINOPHEN TAB 650MG DOSE (2X325MG) PO PRN (14:00)
[2022-10-08] MEDS ORDERED: IMMUNE GLOBULIN 10% 20 GM in IV 1 EA IV ONE (14:00)
[2022-10-08 14:08] VITALS: BP 153/90
== END 2022-10-08 16:40 | disposition home or self-care (01) ==
LOC: M INFU 13:45
PROVIDERS: ATTEND Allergy & Immunology Allergy
DX: D83.9 Common variable immunodeficiency, unspecified (principal); Z88.0 Allergy status to penicillin; Z88.1 Allergy status to other antibiotic agents
CPT/HCPCS: J1459 ×2

== ENCOUNTER → 2022-10-31 | Outpatient (CLI) | payer MEDICARE, MEDICAID | LOC: M WHC 09:53 | PROVIDERS: ATTEND Physician Assistant Medical | DX: R79.89 Other specified abnormal findings of blood chemistry (principal) ==

== ENCOUNTER 2022-11-07 13:55 | Outpatient (CLI) | payer MEDICARE, MEDICAID ==
[2022-11-07] MEDS ORDERED: diphenhydrAMINE 25MG CAP PO PRN (14:00)
[2022-11-07] MEDS ORDERED: EPINEPHrine INJ 1 MG/ML 1ML AMP IM PRN (14:00)
[2022-11-07] MEDS ORDERED: IMMUNE GLOBULIN 10% 5 GM in IV 1 EA IV ONE (14:00)
[2022-11-07] MEDS ORDERED: ACETAMINOPHEN TAB 650MG DOSE (2X325MG) PO PRN (14:00)
[2022-11-07] MEDS ORDERED: IMMUNE GLOBULIN 10% 20 GM in IV 1 EA IV ONE (14:00)
[2022-11-07 14:16] VITALS: BP 141/87; O2SAT 98
[2022-11-07 15:45] VITALS: BP 170/84; O2SAT 96
[2022-11-07 16:30] VITALS: BP 163/87; O2SAT 99
== END 2022-11-07 16:30 ==
LOC: M INFU 13:55
PROVIDERS: ATTEND Allergy & Immunology Allergy
DX: D83.9 Common variable immunodeficiency, unspecified (principal); Z88.0 Allergy status to penicillin
CPT/HCPCS: 96365; 96366; J1459

== ENCOUNTER → 2022-11-15 | Outpatient (CLI) | payer MEDICARE, MEDICAID | LOC: M WHC 09:42 | PROVIDERS: ATTEND Physician Assistant Medical | DX: Z12.31 Encounter for screening mammogram for malignant neoplasm of breast (principal) ==

== ENCOUNTER 2022-12-05 13:39 | Outpatient (CLI) | payer MEDICARE, MEDICAID ==
[~2022-12-05] VITALS: Ht 149.9 cm; Wt 73.0 kg
[2022-12-05 14:15] VITALS: BP 148/68; O2SAT 99
[2022-12-05] MEDS ORDERED: diphenhydrAMINE 25MG CAP PO PRN (14:25)
[2022-12-05] MEDS ORDERED: ACETAMINOPHEN TAB 650MG DOSE (2X325MG) PO PRN (14:25)
[2022-12-05] MEDS ORDERED: IMMUNE GLOBULIN 10% 20 GM in IV 1 EA IV ONE (14:30)
[2022-12-05] MEDS ORDERED: IMMUNE GLOBULIN 10% 5 GM in IV 1 EA IV ONE (14:30)
[2022-12-05] MEDS ORDERED: EPINEPHrine INJ 1 MG/ML 1ML AMP IM PRN (14:30)
[2022-12-05 15:15] VITALS: BP 138/61; O2SAT 97
[2022-12-05 16:00] VITALS: BP 141/60; O2SAT 96
[2022-12-05 16:58] VITALS: BP 152/81; O2SAT 100
== END 2022-12-05 17:00 | disposition home or self-care (01) ==
LOC: M INFU 13:39
PROVIDERS: ATTEND Allergy & Immunology Allergy
DX: D83.9 Common variable immunodeficiency, unspecified (principal); R79.89 Other specified abnormal findings of blood chemistry; J32.9 Chronic sinusitis, unspecified; Z88.0 Allergy status to penicillin; Z88.1 Allergy status to other antibiotic agents
CPT/HCPCS: 36415; 80053; 87205; 96365; 96366; J1459

== ENCOUNTER → 2022-12-05 | Outpatient (CLI) | payer MEDICARE, MEDICAID ==
[2022-12-05 14:58] LABS: ALBUMIN 3.6 G/DL (3.2-5.2); ALKALINE PHOSPHATASE 259 U/L (46-116); ALT/SGPT 85 U/L (7.0-40); AST/SGOT 61 U/L (<34); BILIRUBIN,TOTAL 0.6 MG/DL (0.3-1.2); BLOOD UREA NITROGEN 14 MG/DL (9-23); CALCIUM LEVEL 8.8 MG/DL (8.3-10.6); CARBON DIOXIDE LEVEL 26 MMOL/L (20-31); CHLORIDE LEVEL 107 MMOL/L (98-107); GLOMERULAR FILTRATION RATE > 60.0 (>45); GLUCOSE, FASTING 78 MG/DL (74-106); POTASSIUM SERUM 4.3 MMOL/L (3.5-5.1); SODIUM LEVEL 142 MMOL/L (136-145); TOTAL PROTEIN 6.4 G/DL (5.7-8.2)
== END ==
LOC: M LAB 13:42
PROVIDERS: ATTEND Physician Assistant Medical
DX: R79.89 Other specified abnormal findings of blood chemistry (principal); J32.9 Chronic sinusitis, unspecified

== ENCOUNTER 2023-01-13 12:35 | Outpatient (CLI) | payer MEDICARE, MEDICAID ==
[~2023-01-13] VITALS: Ht 149.9 cm; Wt 75.8 kg
[~2023-01-13 12:35] MED LIST changes: +ACETAMINOPHEN TAB 650MG DOSE (2X325MG) PO ONE; +CURRENT HEIGHT AND WEIGHT NEEDED ON PATIENT XX SCH; +EPINEPHrine INJ 1 MG/ML 1ML AMP IM PRN; +diphenhydrAMINE 25MG CAP PO ONE
[2023-01-13 12:40] VITALS: BP 140/84; O2SAT 95
[2023-01-13] MEDS ORDERED: IMMUNE GLOBUL IV ONE ×3 (13:00→13:10)
[2023-01-13] MEDS ORDERED: IGA AVG IV ONE ×3 (13:00→13:10)
[2023-01-13] MEDS ORDERED: GLY IV ONE ×3 (13:00→13:10)
[2023-01-13 14:30] VITALS: BP 121/61; O2SAT 96
[2023-01-13 15:00] VITALS: BP 157/76; O2SAT 97
[2023-01-13 16:03] VITALS: BP 138/68; O2SAT 98
== END 2023-01-13 16:00 ==
LOC: M INFU 12:35
PROVIDERS: ATTEND Allergy & Immunology Allergy
DX: D83.9 Common variable immunodeficiency, unspecified (principal); Z88.0 Allergy status to penicillin; Z88.1 Allergy status to other antibiotic agents

== ENCOUNTER 2023-02-10 14:40 | Outpatient (CLI) | payer MEDICARE, MEDICAID ==
[~2023-02-10] VITALS: Ht 144.8 cm; Wt 71.8 kg
[2023-02-10 14:40] VITALS: BP 156/73; O2SAT 98
[~2023-02-10 14:40] MED LIST changes: -ACETAMINOPHEN TAB 650MG DOSE (2X325MG) PO ONE; +ACETAMINOPHEN TAB 650MG DOSE (2X325MG) PO PRN; -CURRENT HEIGHT AND WEIGHT NEEDED ON PATIENT XX SCH; +GLY IV ONE; +IGA AVG IV ONE; +IMMUNE GLOBUL IV ONE; -diphenhydrAMINE 25MG CAP PO ONE; +diphenhydrAMINE 25MG CAP PO PRN
[2023-02-10 16:30] VITALS: BP 133/81; O2SAT 96
[2023-02-10 17:30] VITALS: BP 144/80; O2SAT 97
[2023-02-10 18:30] VITALS: BP 145/77; O2SAT 98
== END 2023-02-10 18:22 | disposition home or self-care (01) ==
LOC: M INFU 14:40
PROVIDERS: ATTEND Allergy & Immunology Allergy
DX: D83.9 Common variable immunodeficiency, unspecified (principal); M86.171 Other acute osteomyelitis, right ankle and foot; Z88.0 Allergy status to penicillin; Z88.1 Allergy status to other antibiotic agents

== ENCOUNTER → 2023-02-13 | Outpatient (CLI) | payer MEDICARE, MEDICAID ==
[~2023-02-13] MED LIST changes: -ACETAMINOPHEN TAB 650MG DOSE (2X325MG) PO PRN; -EPINEPHrine INJ 1 MG/ML 1ML AMP IM PRN; -GLY IV ONE; -IGA AVG IV ONE; -IMMUNE GLOBUL IV ONE; -diphenhydrAMINE 25MG CAP PO PRN
== END ==
LOC: M RAD 15:30
PROVIDERS: ATTEND Physician Assistant Medical
DX: R60.9 Edema, unspecified (principal)

== ENCOUNTER 2023-03-10 11:36 | Outpatient (CLI) | payer MEDICARE, MEDICAID ==
[~2023-03-10] VITALS: Ht 144.8 cm; Wt 75.9 kg
[~2023-03-10 11:36] MED LIST changes: +ACETAMINOPHEN TAB 650MG DOSE (2X325MG) PO PRN; +EPINEPHrine INJ 1 MG/ML 1ML AMP IM PRN; +diphenhydrAMINE 25MG CAP PO PRN
[2023-03-10] MEDS ORDERED: IMMUNE GLOBUL IV ONE ×2 (12:00→12:05)
[2023-03-10] MEDS ORDERED: GLY IV ONE ×2 (12:00→12:05)
[2023-03-10] MEDS ORDERED: IGA AVG IV ONE ×2 (12:00→12:05)
[2023-03-10 13:30] VITALS: BP 149/86; O2SAT 95
[2023-03-10 15:20] VITALS: BP 181/86; O2SAT 100
== END 2023-03-10 15:20 ==
LOC: M INFU 11:36
PROVIDERS: ATTEND Allergy & Immunology Allergy
DX: D83.9 Common variable immunodeficiency, unspecified (principal); Z88.0 Allergy status to penicillin; Z88.1 Allergy status to other antibiotic agents

== ENCOUNTER → 2023-04-24 | Outpatient (CLI) | payer MEDICARE, MEDICAID ==
[~2023-04-24] MED LIST changes: -ACETAMINOPHEN TAB 650MG DOSE (2X325MG) PO PRN; -EPINEPHrine INJ 1 MG/ML 1ML AMP IM PRN; -FLUT50SP17 NS; +FLUTISP NS; -diphenhydrAMINE 25MG CAP PO PRN
[2023-04-24 14:25] LABS: BASO % 0.6 % (0.0-1.0); EOS # 0.1 10^3/uL (0.0-0.5); EOS % 2.6 % (0.0-3.0); HEMATOCRIT 42.2 % (36.0-47.0); HEMOGLOBIN 13.6 g/dl (12.0-15.5); LYMPH # 0.5 10^3/uL (1.5-5.0); LYMPH % 9.5 % (24.0-44.0); MEAN CORPUSCULAR HEMOGLOBIN 28.1 pg (27.0-33.0); MEAN CORPUSCULAR HGB CONC 32.2 g/dl (32.0-36.5); MEAN CORPUSCULAR VOLUME 87.2 fl (80.0-96.0); MONO # 0.5 10^3/uL (0.0-0.8); MONO % 10.3 % (2.0-8.0); NEUTROPHILS # 3.9 10^3/uL (1.5-8.5); NEUTROPHILS % 76.4 % (36.0-66.0); PLATELET COUNT, AUTOMATED 298 10^3/uL (150-450); RED BLOOD COUNT 4.84 10^6/uL (4.00-5.40)
[2023-04-24 14:58] LABS: ALBUMIN 3.7 G/DL (3.2-5.2); ALKALINE PHOSPHATASE 149 U/L (46-116); ALT/SGPT 49 U/L (7.0-40); AST/SGOT 32 U/L (<34); BILIRUBIN,TOTAL 0.7 MG/DL (0.3-1.2); BLOOD UREA NITROGEN 15 MG/DL (9-23); CARBON DIOXIDE LEVEL 28 MMOL/L (20-31); CHLORIDE LEVEL 105 MMOL/L (98-107); CREATININE FOR GFR 0.61 MG/DL (0.55-1.30); GLOMERULAR FILTRATION RATE > 60.0 (>45); GLUCOSE, FASTING 73 MG/DL (74-106); IRON (FE) 74 UG/DL (50-170); POTASSIUM SERUM 4.5 MMOL/L (3.5-5.1); SODIUM LEVEL 141 MMOL/L (136-145); TOTAL PROTEIN 6.3 G/DL (5.7-8.2)
== END ==
LOC: M PLALAB 11:08
PROVIDERS: ATTEND Physician Assistant Medical
DX: I10 Essential (primary) hypertension (principal); Z79.899 Other long term (current) drug therapy; Z86.39 Personal history of other endocrine, nutritional and metabolic disease

== ENCOUNTER 2023-05-06 11:57 | Outpatient (CLI) | payer MEDICARE, MEDICAID ==
[~2023-05-06] VITALS: Ht 144.8 cm; Wt 74.9 kg
[~2023-05-06 11:57] MED LIST changes: +ALBUTEROL SULFATE 2.5MG/0.5ML INH NEB SOLN INH PRN; +EPINEPHrine INJ 1 MG/ML 1ML AMP IM PRN; +diphenhydrAMINE 50MG/ML VIAL IV PRN; +methylPREDNISolone 125MG 2ML VIAL IV PRN
[2023-05-06 12:10] VITALS: BP 145/88; O2SAT 97
[2023-05-06] MEDS ORDERED: diphenhydrAMINE 50MG/ML VIAL IV ONE (12:20)
[2023-05-06] MEDS ORDERED: ACETAMINOPHEN TAB 650MG DOSE (2X325MG) PO PRN (12:20)
[2023-05-06] MEDS ORDERED: IGA AVG IV ONE ×2 (12:20)
[2023-05-06] MEDS ORDERED: GLY IV ONE ×2 (12:20)
[2023-05-06] MEDS ORDERED: IMMUNE GLOBUL IV ONE ×2 (12:20)
[2023-05-06 13:10] VITALS: BP 155/84; O2SAT 98
[2023-05-06 13:40] VITALS: BP 164/88; O2SAT 97
[2023-05-06 14:54] VITALS: BP 154/84; O2SAT 98
== END 2023-05-06 15:00 | disposition home or self-care (01) ==
LOC: M INFU 11:57
PROVIDERS: ATTEND Allergy & Immunology Allergy
DX: D83.9 Common variable immunodeficiency, unspecified (principal); Z88.0 Allergy status to penicillin; Z88.1 Allergy status to other antibiotic agents

== ENCOUNTER → 2023-06-30 | Outpatient (CLI) | payer MEDICARE, MEDICAID ==
[~2023-06-30] MED LIST changes: -ALBUTEROL SULFATE 2.5MG/0.5ML INH NEB SOLN INH PRN; -EPINEPHrine INJ 1 MG/ML 1ML AMP IM PRN; -diphenhydrAMINE 50MG/ML VIAL IV PRN; -methylPREDNISolone 125MG 2ML VIAL IV PRN
[2023-06-30 15:10] LABS: BASO % 0.7 % (0.0-1.0); EOS # 0.2 10^3/uL (0.0-0.5); EOS % 2.9 % (0.0-3.0); HEMATOCRIT 43.6 % (36.0-47.0); HEMOGLOBIN 14.4 g/dl (12.0-15.5); LYMPH # 0.5 10^3/uL (1.5-5.0); LYMPH % 8.5 % (24.0-44.0); MEAN CORPUSCULAR HEMOGLOBIN 28.4 pg (27.0-33.0); MONO # 0.6 10^3/uL (0.0-0.8); MONO % 9.9 % (2.0-8.0); NEUTROPHILS # 4.5 10^3/uL (1.5-8.5); NEUTROPHILS % 77.5 % (36.0-66.0); PLATELET COUNT, AUTOMATED 287 10^3/uL (150-450); RED BLOOD COUNT 5.07 10^6/uL (4.00-5.40); WHITE BLOOD COUNT 5.9 10^3/uL (4.0-10.0)
[2023-06-30 15:38] LABS: CHOLESTEROL RISK RATIO 2.93 (<5); LDL CHOLESTEROL 103.8 MG/DL (<100)
[2023-06-30 15:39] LABS: FERRITIN 19.2 NG/ML (7.3-270.7)
[2023-06-30 15:40] LABS: FREE T4 1.63 NG/DL (0.89-1.76); THYROID STIMULATING HORMONE 0.331 uIU/ML (0.55-4.78)
== END ==
LOC: M LAB 14:22
PROVIDERS: ATTEND Physician Assistant Medical
DX: D50.9 Iron deficiency anemia, unspecified (principal); E03.9 Hypothyroidism, unspecified; Z13.220 Encounter for screening for lipoid disorders; I10 Essential (primary) hypertension

== ENCOUNTER 2023-07-01 13:35 | Outpatient (CLI) | payer MEDICARE, MEDICAID ==
[~2023-07-01] VITALS: Ht 149.9 cm; Wt 72.0 kg
[2023-07-01 13:35] VITALS: BP 144/74; O2SAT 97
[~2023-07-01 13:35] MED LIST changes: +ALBUTEROL SULFATE 2.5MG/0.5ML INH NEB SOLN INH PRN; +EPINEPHrine INJ 1 MG/ML 1ML AMP IM PRN; +NS 1,000 ML IV SCH; +diphenhydrAMINE 50MG/ML VIAL IV PRN; +methylPREDNISolone 125MG 2ML VIAL IV PRN
[2023-07-01] MEDS: IMMUNE GLOBUL IV ONE ×2 (13:49→13:51)
[2023-07-01] MEDS: IGA AVG IV ONE ×2 (13:49→13:51)
[2023-07-01] MEDS: GLY IV ONE ×2 (13:49→13:51)
[2023-07-01] MEDS: diphenhydrAMINE 50MG/ML VIAL IV ONE (13:51)
[2023-07-01] MEDS: ACETAMINOPHEN TAB 650MG DOSE (2X325MG) PO ONE (13:51)
[2023-07-01 14:20] VITALS: BP 141/88; O2SAT 99
[2023-07-01 14:50] VITALS: BP 131/85; O2SAT 97
[2023-07-01 15:20] VITALS: BP 135/77; O2SAT 97
[2023-07-01 16:20] VITALS: BP 160/89; O2SAT 97
== END 2023-07-01 16:25 | disposition home or self-care (01) ==
LOC: M INFU 13:35
PROVIDERS: ATTEND Allergy & Immunology Allergy
DX: D83.9 Common variable immunodeficiency, unspecified (principal); Z88.0 Allergy status to penicillin; Z88.1 Allergy status to other antibiotic agents

== ENCOUNTER 2023-07-23 07:32 | Outpatient (CLI) | payer MEDICARE, MEDICAID ==
[~2023-07-23] VITALS: Ht 144.8 cm; Wt 74.0 kg
[2023-07-23] MEDS ORDERED: IRON SUCROSE 225 MG in NS 213.75 ML IV ONE (08:00)
[2023-07-23] MEDS ORDERED: ACETAMINOPHEN 650MG PO PRIOR TO INFUSION PO ONE ×2 (08:00→09:05)
[2023-07-23] MEDS ORDERED: diphenhydrAMINE 25MG PO PRIOR TO INFUSION PO ONE (08:00)
[2023-07-23] MEDS ORDERED: IRON SUCROSE 25 MG in NS 23.75 ML IV ONE (08:00)
[2023-07-23 08:30] VITALS: BP 128/78; O2SAT 96
[2023-07-23] MEDS ORDERED: ACETAMINOPHEN 325 MG TAB As Ordered ONE (08:49)
[2023-07-23] MEDS: ACETAMINOPHEN 325 MG TAB PO ONE (09:32)
[2023-07-23] MEDS: diphenhydrAMINE 25MG PO PRIOR TO INFUSION PO ONE (09:32)
[2023-07-23] MEDS: IRON SUCROSE 250 MG in NS 237.5 ML IV ONE (09:33)
[2023-07-23 11:00] VITALS: BP 169/96; O2SAT 96
[2023-07-23 11:30] VITALS: BP 173/99; O2SAT 96
== END 2023-07-23 11:30 ==
LOC: M INFU 07:32
PROVIDERS: ATTEND Physician Assistant Medical
DX: D50.9 Iron deficiency anemia, unspecified (principal); Z88.0 Allergy status to penicillin; Z88.1 Allergy status to other antibiotic agents
CPT/HCPCS: 96365; J1756

== ENCOUNTER 2023-09-23 13:13 | Outpatient (CLI) | payer MEDICARE, MEDICAID ==
[~2023-09-23] VITALS: Ht 144.8 cm; Wt 75.9 kg
[~2023-09-23 13:13] MED LIST changes: +ACETAMINOPHEN TAB 650MG DOSE (2X325MG) PO PRN; -ALBUTEROL SULFATE 2.5MG/0.5ML INH NEB SOLN INH PRN; -NS 1,000 ML IV SCH; -diphenhydrAMINE 50MG/ML VIAL IV PRN; -methylPREDNISolone 125MG 2ML VIAL IV PRN
[2023-09-23 13:20] VITALS: BP 144/88; O2SAT 97
[2023-09-23] MEDS ORDERED: ACETAMINOPHEN 650MG PO PRIOR TO INFUSION PO ONE (13:30)
[2023-09-23] MEDS ORDERED: diphenhydrAMINE 25MG PO PRIOR TO INFUSION PO ONE (13:30)
[2023-09-23] MEDS ORDERED: diphenhydrAMINE 25MG CAP PO PRN (13:30)
[2023-09-23] MEDS: IGA AVG IV ONE ×2 (13:39→13:40)
[2023-09-23] MEDS: GLY IV ONE ×2 (13:39→13:40)
[2023-09-23] MEDS: IMMUNE GLOBUL IV ONE ×2 (13:39→13:40)
[2023-09-23 14:30] VITALS: BP 139/84; O2SAT 98
[2023-09-23 15:00] VITALS: BP 156/83; O2SAT 99
[2023-09-23 16:46] VITALS: BP 132/80; O2SAT 98
== END 2023-09-23 16:45 | disposition home or self-care (01) ==
LOC: M INFU 13:13
PROVIDERS: ATTEND Allergy & Immunology Allergy
DX: D83.9 Common variable immunodeficiency, unspecified (principal); Z88.0 Allergy status to penicillin; Z88.1 Allergy status to other antibiotic agents

== ENCOUNTER 2023-12-08 14:06 | Outpatient (CLI) | payer MEDICARE, MEDICAID ==
[~2023-12-08] VITALS: Ht 144.8 cm; Wt 75.9 kg
[~2023-12-08 14:06] MED LIST changes: +ACETAMINOPHEN 650MG PO PRIOR TO INFUSION PO ONE; -AZEL0.055 NARES; +AZEL1SPR4 NARES; +diphenhydrAMINE 25MG CAP PO PRN; +diphenhydrAMINE 25MG PO PRIOR TO INFUSION PO ONE
[2023-12-08 14:42] VITALS: BP 179/86; O2SAT 96
[2023-12-08] MEDS: IGA AVG IV ONE ×2 (14:49→14:50)
[2023-12-08] MEDS: IMMUNE GLOBUL IV ONE ×2 (14:49→14:50)
[2023-12-08] MEDS: GLY IV ONE ×2 (14:49→14:50)
[2023-12-08 15:45] VITALS: BP 173/94; O2SAT 99
[2023-12-08 16:25] VITALS: BP 175/88; O2SAT 97
[2023-12-08 17:24] VITALS: BP 127/88; O2SAT 97
== END 2023-12-08 17:25 | disposition home or self-care (01) ==
LOC: M INFU 14:06
PROVIDERS: ATTEND Allergy & Immunology Allergy
DX: D83.9 Common variable immunodeficiency, unspecified (principal); Z88.0 Allergy status to penicillin; Z88.1 Allergy status to other antibiotic agents

== ENCOUNTER → 2024-01-23 | Outpatient (REF) | payer MEDICARE, MEDICAID ==
[~2024-01-23] MED LIST changes: -ACETAMINOPHEN 650MG PO PRIOR TO INFUSION PO ONE; -ACETAMINOPHEN TAB 650MG DOSE (2X325MG) PO PRN; +EMER1PAK PO; -EPINEPHrine INJ 1 MG/ML 1ML AMP IM PRN; +MAGN500T6 PO; +VITA200012 PO; -diphenhydrAMINE 25MG CAP PO PRN; -diphenhydrAMINE 25MG PO PRIOR TO INFUSION PO ONE
== END ==
LOC: M SFHCDERM 17:06
PROVIDERS: ATTEND Nurse Practitioner Family
DX: C44.311 Basal cell carcinoma of skin of nose (principal)

== ENCOUNTER 2024-01-25 03:52 | Inpatient (IN) | payer MEDICARE, MEDICAID ==
[~2024-01-25] VITALS: Ht 157.5 cm; Wt 88.6 kg
[~2024-01-25 03:52] MED LIST changes: -EMER1PAK PO; -MAGN500T6 PO; -VITA200012 PO
[2024-01-25 06:54] LABS: BASO % 0.3 % (0.0-1.0); EOS % 0.2 % (0.0-3.0); HEMOGLOBIN 14.1 g/dl (12.0-15.5); LYMPH # 0.4 10^3/uL (1.5-5.0); MEAN CORPUSCULAR HEMOGLOBIN 30.2 pg (27.0-33.0); MEAN CORPUSCULAR HGB CONC 34.4 g/dl (32.0-36.5); MEAN CORPUSCULAR VOLUME 87.8 fl (80.0-96.0); MONO # 0.7 10^3/uL (0.0-0.8); MONO % 5.9 % (2.0-8.0); NEUTROPHILS # 10.5 10^3/uL (1.5-8.5); PLATELET COUNT, AUTOMATED 328 10^3/uL (150-450); RED BLOOD COUNT 4.67 10^6/uL (4.00-5.40); WHITE BLOOD COUNT 11.6 10^3/uL (4.0-10.0)
[2024-01-25 06:58] LABS: BLOOD UREA NITROGEN 12 MG/DL (9-23); CARBON DIOXIDE LEVEL 28 MMOL/L (20-31); CHLORIDE LEVEL 100 MMOL/L (98-107); CREATININE FOR GFR 0.56 MG/DL (0.55-1.30); GLOMERULAR FILTRATION RATE > 60.0 (>45); GLUCOSE, FASTING 115 MG/DL (74-106); POTASSIUM SERUM 3.6 MMOL/L (3.5-5.1); SODIUM LEVEL 134 MMOL/L (136-145)
[2024-01-25] MEDS: ACETAMINOPHEN *IV* 1,000 MG in IV 1 EA IV ONE (07:02)
[2024-01-25] MEDS: hydrALAZINE 20MG/ML 1ML VIAL IV ONE (08:15)
[2024-01-25] MEDS ORDERED: VITA200012 PO (11:23)
[2024-01-25] MEDS ORDERED: EMER1PAK PO (11:24)
[2024-01-25] MEDS ORDERED: MAGN500T6 PO (11:25)
[2024-01-25] MEDS ORDERED: HOME MED LIST COMPLETE! XX SCH (11:30)
[2024-01-25] MEDS ORDERED: hydrALAZINE 20MG/ML 1ML VIAL IV PRN (12:55)
[2024-01-25] MEDS: NS 1,000 ML IV SCH (13:18)
[2024-01-25] MEDS: METHOCARBAMOL 1,000 MG/10 ML VIAL IV ONE (14:06)
[2024-01-25 15:20] VITALS: BP 149/93; TEMP 97.3; O2SAT 97
[2024-01-25 15:50] VITALS: BP 147/93
[2024-01-25] MEDS: NITROGLYCERIN 2% OINT 1 GM *U/D* PKT TOP ONE (15:50)
[2024-01-25 19:43] VITALS: BP 159/84; TEMP 97.5; O2SAT 96
[2024-01-26] VITALS (10 sets, daily range): BP systolic 127–165; BP diastolic 76–85; TEMP 97.2–97.7; O2SAT 90–97
[2024-01-26] MEDS: MORPHINE 4 MG/ML 1ML VIAL IV PRN (00:20)
[2024-01-26] MEDS ORDERED: ONDANSETRON 4MG 2ML VIAL As Ordered ONE (10:33)
[2024-01-26] MEDS ORDERED: LIDOCAINE 2% 100MG/5ML SDV (FOR ANES.) As Ordered ONE (10:34)
[2024-01-26] MEDS ORDERED: propofoL 200 MG/20 ML VIAL As Ordered ONE (10:34)
[2024-01-26] MEDS ORDERED: fentaNYL 100 MCG/2 ML INJECTION As Ordered ONE (13:01)
[2024-01-26] MEDS: NITROGLYCERIN 2% OINT 1 GM *U/D* PKT TOP ONE (13:25)
[2024-01-26] MEDS: ACETAMINOPHEN *IV* 1,000 MG in IV 1 EA IV ONE (13:30)
[2024-01-26] MEDS: MORPHINE 2 MG/ML 1ML VIAL IV ONE (13:30)
[2024-01-26] MEDS: CLINDAMYCIN 600MG/50ML PREMIX BAG As Ordered ONE (14:00)
[2024-01-26] MEDS: ceFAZolin 2 GM/D5W 50 ML IV BAG As Ordered ONE (14:06)
[2024-01-26] MEDS ORDERED: fentaNYL 100 MCG/2 ML INJECTION IV PRN (14:35)
[2024-01-26] MEDS ORDERED: diphenhydrAMINE 50MG/ML VIAL IV PRN (14:35)
[2024-01-26] MEDS ORDERED: MEPERIDINE 25 MG/ML 1ML VIAL IV PRN (14:35)
[2024-01-26] MEDS: HYDROMORPHONE HCL 0.5 MG/ 0.5 ML SYRINGE IV PRN (15:14)
[2024-01-26] MEDS: ONDANSETRON 4MG 2ML VIAL IV PRN (15:15)
[2024-01-26] MEDS: oxyCODONE 5MG TAB PO PRN (15:21)
[2024-01-26] MEDS: METOCLOPRAMIDE INJ 10MG/2ML VIAL IV PRN (15:21)
[2024-01-26] MEDS: ceFAZolin SOD 2 GM in IV 1 EA IV SCH (23:53)
[2024-01-27 01:18] VITALS: BP 124/79; TEMP 97.2; O2SAT 96
[2024-01-27] MEDS ORDERED: MORPHINE 4 MG/ML 1ML VIAL IV ONE (01:35)
[2024-01-27] MEDS: MORPHINE 2 MG/ML 1ML VIAL IV ONE (01:44)
[2024-01-27 05:21] VITALS: BP 125/79; TEMP 97.3; O2SAT 97
[2024-01-27 08:06] VITALS: BP 133/81; TEMP 97.2; O2SAT 95
[2024-01-27] MEDS: MONTELUKAST 10 MG TAB PO SCH (10:34)
[2024-01-27] MEDS: PARoxetine 20MG TABLET PO SCH (10:35)
[2024-01-27 12:00] VITALS: BP 134/81; TEMP 97.6; O2SAT 93
[2024-01-27 20:46] VITALS: BP 137/80; TEMP 97.2; O2SAT 92
[2024-01-27 23:59] VITALS: BP 136/78; TEMP 97; O2SAT 95
[2024-01-28 04:59] VITALS: BP 169/93; TEMP 97.5; O2SAT 96
[2024-01-28 06:39] VITALS: BP 148/82
[2024-01-28 07:31] LABS: HEMOGLOBIN 11.8 g/dl (12.0-15.5); MEAN CORPUSCULAR HEMOGLOBIN 29.5 pg (27.0-33.0); MEAN CORPUSCULAR HGB CONC 32.8 g/dl (32.0-36.5); PLATELET COUNT, AUTOMATED 260 10^3/uL (150-450); WHITE BLOOD COUNT 7.8 10^3/uL (4.0-10.0)
[2024-01-28 07:56] LABS: BLOOD UREA NITROGEN 12 MG/DL (9-23); CALCIUM LEVEL 8.2 MG/DL (8.3-10.6); CARBON DIOXIDE LEVEL 28 MMOL/L (20-31); CHLORIDE LEVEL 107 MMOL/L (98-107); CREATININE FOR GFR 0.55 MG/DL (0.55-1.30); GLOMERULAR FILTRATION RATE > 60.0 (>45); GLUCOSE, FASTING 95 MG/DL (74-106); POTASSIUM SERUM 3.2 MMOL/L (3.5-5.1); SODIUM LEVEL 139 MMOL/L (136-145)
[2024-01-28] MEDS: POTASSIUM CHLORIDE 10% LIQ 20MEQ/15ML UDC PO SCH (08:51)
[2024-01-28] MEDS: ACETAMINOPHEN TAB 650MG DOSE (2X325MG) PO PRN (10:48)
[2024-01-28 12:00] VITALS: BP 142/82; TEMP 97.2; O2SAT 98
[2024-01-28 20:57] VITALS: BP 153/81; TEMP 97.7; O2SAT 95
[2024-01-29] MEDS: RAMELTEON 8 MG TAB (ROZEREM) PO PRN (00:29)
[2024-01-29 05:00] VITALS: BP 157/86; TEMP 97; O2SAT 98
[2024-01-29 06:23] LABS: HEMOGLOBIN 10.9 g/dl (12.0-15.5); MEAN CORPUSCULAR HEMOGLOBIN 30.3 pg (27.0-33.0); MEAN CORPUSCULAR HGB CONC 34.1 g/dl (32.0-36.5); MEAN CORPUSCULAR VOLUME 88.9 fl (80.0-96.0); PLATELET COUNT, AUTOMATED 237 10^3/uL (150-450); WHITE BLOOD COUNT 7.1 10^3/uL (4.0-10.0)
[2024-01-29 06:49] LABS: BLOOD UREA NITROGEN 8 MG/DL (9-23); CALCIUM LEVEL 8.1 MG/DL (8.3-10.6); CARBON DIOXIDE LEVEL 27 MMOL/L (20-31); CHLORIDE LEVEL 108 MMOL/L (98-107); CREATININE FOR GFR 0.47 MG/DL (0.55-1.30); GLOMERULAR FILTRATION RATE > 60.0 (>45); GLUCOSE, FASTING 96 MG/DL (74-106); POTASSIUM SERUM 3.4 MMOL/L (3.5-5.1); SODIUM LEVEL 138 MMOL/L (136-145)
[2024-01-29 08:16] LABS: MAGNESIUM LEVEL 1.9 MG/DL (1.8-2.4)
[2024-01-29 12:00] VITALS: BP 123/70; TEMP 97.3; O2SAT 98
== END 2024-01-29 14:20 | DRG 481 ==
LOC: EDUNIT# 03:52 → M ED 03:52 → EDBD 03:52 → M ED INP 12:06 → M MS5PR 15:30
PROVIDERS: ADMIT General Practice; ATTEND Internal Medicine
PROC: 0QS634Z Reposition Right Upper Femur with Internal Fixation Device, Percutaneous Approach (ICD-10-PCS; principal; 2024-01-26 11:20)
DX: S72.301A Unspecified fracture of shaft of right femur, initial encounter for closed fracture (principal); D84.9 Immunodeficiency, unspecified; E87.1 Hypo-osmolality and hyponatremia; E03.9 Hypothyroidism, unspecified; I10 Essential (primary) hypertension; E55.9 Vitamin D deficiency, unspecified; M17.0 Bilateral primary osteoarthritis of knee; M81.0 Age-related osteoporosis without current pathological fracture; F32.A Depression, unspecified; G25.81 Restless legs syndrome; Q96.9 Turner's syndrome, unspecified; Z79.899 Other long term (current) drug therapy; Z88.0 Allergy status to penicillin; Z88.8 Allergy status to other drugs, medicaments and biological substances; W18.30XA Fall on same level, unspecified, initial encounter; Y92.512 Supermarket, store or market as the place of occurrence of the external cause

== ENCOUNTER 2024-01-29 09:26 | Inpatient (IN) | payer MEDICARE, MEDICAID ==
[~2024-01-29] VITALS: Ht 144.8 cm; Wt 78.9 kg
[~2024-01-29 09:26] MED LIST changes: +EMER1PAK PO; +MAGN500T6 PO; +VITA200012 PO
[2024-01-29] MEDS ORDERED: MIRALAX *UNIT DOSE* 17GM PACKET PO PRN (11:45)
[2024-01-29] MEDS ORDERED: FLEET ENEMA PR PRN (11:45)
[2024-01-29] MEDS ORDERED: BISACODYL 10MG SUPP PR PRN (11:45)
[2024-01-29] MEDS ORDERED: BISACODYL 5MG TAB PO PRN (11:45)
[2024-01-29] MEDS ORDERED: MAALOX 30 ML SUSP *UDC PO PRN (11:45)
[2024-01-29] MEDS ORDERED: ONDANSETRON 4MG TAB PO PRN (11:45)
[2024-01-29] MEDS ORDERED: SIMETHICONE 80MG CHEW TAB PO PRN (11:45)
[2024-01-29] MEDS ORDERED: MOM 30ML SUSPENSION UDC PO PRN (11:45)
[2024-01-29 14:30] VITALS: BP 146/79; TEMP 97.8; O2SAT 98
[2024-01-29] MEDS: BISACODYL 5MG TAB PO ONE (16:47)
[2024-01-29] MEDS: ACETAMINOPHEN 500 MG TAB PO SCH (18:17)
[2024-01-29] MEDS: POTASSIUM CHLORIDE 10MEQ SR TABLET PO SCH (18:17)
[2024-01-29 20:00] VITALS: BP 158/73; TEMP 98; O2SAT 98
[2024-01-29] MEDS: DOCUSATE SODIUM 100MG CAPSULE PO SCH (20:03)
[2024-01-29] MEDS: SENNA 8.6 MG TAB (SENOKOT) PO SCH (20:03)
[2024-01-29] MEDS: HEPARIN SOD (PORCINE) 5000UNITS/ML 1ML VIAL/SYRINGE SC SCH (20:03)
[2024-01-29] MEDS: FLEET ENEMA PR ONE (20:21)
[2024-01-29] MEDS ORDERED: SENNA 8.6 MG TAB (SENOKOT) PO SCH (21:00)
[2024-01-29] MEDS: RAMELTEON 8 MG TAB (ROZEREM) PO PRN (21:29)
[2024-01-29] MEDS: traMADol 50 MG TAB PO PRN (21:33)
[2024-01-30 04:00] VITALS: BP 131/69; TEMP 97.7; O2SAT 98
[2024-01-30 07:08] LABS: BASO % 0.6 % (0.0-1.0); EOS # 0.4 10^3/uL (0.0-0.5); EOS % 5.8 % (0.0-3.0); HEMOGLOBIN 11.3 g/dl (12.0-15.5); LYMPH # 0.5 10^3/uL (1.5-5.0); LYMPH % 7.8 % (24.0-44.0); MEAN CORPUSCULAR HEMOGLOBIN 30.1 pg (27.0-33.0); MEAN CORPUSCULAR HGB CONC 33.2 g/dl (32.0-36.5); MEAN CORPUSCULAR VOLUME 90.7 fl (80.0-96.0); MONO # 0.6 10^3/uL (0.0-0.8); MONO % 8.8 % (2.0-8.0); NEUTROPHILS # 4.8 10^3/uL (1.5-8.5); NEUTROPHILS % 75.4 % (36.0-66.0); PLATELET COUNT, AUTOMATED 254 10^3/uL (150-450); RED BLOOD COUNT 3.75 10^6/uL (4.00-5.40); WHITE BLOOD COUNT 6.4 10^3/uL (4.0-10.0)
[2024-01-30 07:32] LABS: BLOOD UREA NITROGEN 10 MG/DL (9-23); CALCIUM LEVEL 8.3 MG/DL (8.3-10.6); CARBON DIOXIDE LEVEL 27 MMOL/L (20-31); CHLORIDE LEVEL 108 MMOL/L (98-107); CREATININE FOR GFR 0.52 MG/DL (0.55-1.30); GLOMERULAR FILTRATION RATE > 60.0 (>45); GLUCOSE, FASTING 82 MG/DL (74-106); POTASSIUM SERUM 3.9 MMOL/L (3.5-5.1); SODIUM LEVEL 139 MMOL/L (136-145)
[2024-01-30] MEDS: PARoxetine 20MG TABLET PO SCH (10:55)
[2024-01-30] MEDS: MONTELUKAST 10 MG TAB PO SCH (10:55)
[2024-01-30] MEDS: VITAMIN D 1,000 INTERNATIONAL UNITS TABLET PO SCH (10:55)
[2024-01-30] MEDS: PANTOPRAZOLE 40MG TAB (PROTONIX) PO SCH (10:55)
[2024-01-30] MEDS: AZELASTINE 137MCG NASAL SPY 30 ML (ASTELIN) SCH (10:56)
[2024-01-30] MEDS: FLUTICASONE PROP 0.05% NASAL SPRAY 16 GM (FLONASE) NARES SCH (10:56)
[2024-01-30] MEDS ORDERED: CelecoXIB (CeleBREX) 100 MG CAP PO ONE (12:00)
[2024-01-30 12:15] VITALS: BP 135/68; TEMP 97.4; O2SAT 100
[2024-01-30] MEDS: CelecoXIB (CeleBREX) 100 MG CAP PO ONE (12:25)
[2024-01-30 20:00] VITALS: BP 121/72; TEMP 97.8; O2SAT 96
[2024-01-30] MEDS: MAGNESIUM GLUCONATE 500 MG TAB PO SCH (20:59)
[2024-01-30] MEDS ORDERED: FLUTICASONE PROP 0.05% NASAL SPRAY 16 GM (FLONASE) NARES SCH (21:00)
[2024-01-31 04:00] VITALS: BP 149/78; TEMP 96.8; O2SAT 99
[2024-01-31 07:09] LABS: BASO # 0.1 10^3/uL (0.0-0.2); BASO % 0.9 % (0.0-1.0); EOS # 0.4 10^3/uL (0.0-0.5); EOS % 7.4 % (0.0-3.0); HEMATOCRIT 31.9 % (36.0-47.0); HEMOGLOBIN 10.5 g/dl (12.0-15.5); LYMPH # 0.5 10^3/uL (1.5-5.0); LYMPH % 8.3 % (24.0-44.0); MEAN CORPUSCULAR HEMOGLOBIN 29.8 pg (27.0-33.0); MEAN CORPUSCULAR HGB CONC 32.9 g/dl (32.0-36.5); MEAN CORPUSCULAR VOLUME 90.6 fl (80.0-96.0); MONO # 0.5 10^3/uL (0.0-0.8); MONO % 8.1 % (2.0-8.0); NEUTROPHILS # 4.2 10^3/uL (1.5-8.5); NEUTROPHILS % 73.9 % (36.0-66.0); PLATELET COUNT, AUTOMATED 262 10^3/uL (150-450); RED BLOOD COUNT 3.52 10^6/uL (4.00-5.40); WHITE BLOOD COUNT 5.7 10^3/uL (4.0-10.0)
[2024-01-31 07:35] LABS: BLOOD UREA NITROGEN 15 MG/DL (9-23); CALCIUM LEVEL 8.4 MG/DL (8.3-10.6); CARBON DIOXIDE LEVEL 25 MMOL/L (20-31); CHLORIDE LEVEL 109 MMOL/L (98-107); CREATININE FOR GFR 0.48 MG/DL (0.55-1.30); GLOMERULAR FILTRATION RATE > 60.0 (>45); GLUCOSE, FASTING 82 MG/DL (74-106); POTASSIUM SERUM 4.1 MMOL/L (3.5-5.1); SODIUM LEVEL 140 MMOL/L (136-145)
[2024-01-31] MEDS: CelecoXIB (CeleBREX) 100 MG CAP PO SCH (08:18)
[2024-01-31 12:00] VITALS: BP 131/80; TEMP 97.3; O2SAT 95
[2024-01-31] MEDS: LIDOCAINE 5% (LIDODERM) PATCH TD SCH (12:31)
[2024-01-31 20:00] VITALS: BP 128/77; TEMP 97; O2SAT 94
[2024-01-31] MEDS: oxyCODONE 5MG TAB PO PRN (23:03)
[2024-02-01 04:00] VITALS: BP 141/78; TEMP 97.1; O2SAT 98
[2024-02-01 07:05] LABS: BASO # 0.1 10^3/uL (0.0-0.2); EOS # 0.5 10^3/uL (0.0-0.5); EOS % 8.6 % (0.0-3.0); HEMATOCRIT 34.2 % (36.0-47.0); HEMOGLOBIN 11.1 g/dl (12.0-15.5); LYMPH # 0.5 10^3/uL (1.5-5.0); LYMPH % 7.7 % (24.0-44.0); MEAN CORPUSCULAR HEMOGLOBIN 29.8 pg (27.0-33.0); MEAN CORPUSCULAR HGB CONC 32.5 g/dl (32.0-36.5); MEAN CORPUSCULAR VOLUME 91.9 fl (80.0-96.0); MONO # 0.5 10^3/uL (0.0-0.8); MONO % 8.9 % (2.0-8.0); NEUTROPHILS # 4.2 10^3/uL (1.5-8.5); NEUTROPHILS % 71.4 % (36.0-66.0); PLATELET COUNT, AUTOMATED 296 10^3/uL (150-450); RED BLOOD COUNT 3.72 10^6/uL (4.00-5.40); WHITE BLOOD COUNT 5.8 10^3/uL (4.0-10.0)
[2024-02-01 07:47] LABS: BLOOD UREA NITROGEN 13 MG/DL (9-23); CALCIUM LEVEL 8.4 MG/DL (8.3-10.6); CARBON DIOXIDE LEVEL 25 MMOL/L (20-31); CHLORIDE LEVEL 109 MMOL/L (98-107); CREATININE FOR GFR 0.52 MG/DL (0.55-1.30); GLOMERULAR FILTRATION RATE > 60.0 (>45); GLUCOSE, FASTING 79 MG/DL (74-106); POTASSIUM SERUM 4.5 MMOL/L (3.5-5.1); SODIUM LEVEL 141 MMOL/L (136-145)
[2024-02-01 20:00] VITALS: BP 137/76; TEMP 97.1; O2SAT 100
[2024-02-02 04:00] VITALS: BP 141/80; TEMP 97.1; O2SAT 99
[2024-02-02 06:45] LABS: BASO # 0.1 10^3/uL (0.0-0.2); BASO % 0.8 % (0.0-1.0); EOS # 0.5 10^3/uL (0.0-0.5); EOS % 7.8 % (0.0-3.0); HEMATOCRIT 34.9 % (36.0-47.0); HEMOGLOBIN 11.4 g/dl (12.0-15.5); LYMPH # 0.5 10^3/uL (1.5-5.0); MEAN CORPUSCULAR HEMOGLOBIN 29.9 pg (27.0-33.0); MEAN CORPUSCULAR HGB CONC 32.7 g/dl (32.0-36.5); MEAN CORPUSCULAR VOLUME 91.6 fl (80.0-96.0); MONO # 0.6 10^3/uL (0.0-0.8); MONO % 9.8 % (2.0-8.0); NEUTROPHILS # 4.4 10^3/uL (1.5-8.5); PLATELET COUNT, AUTOMATED 303 10^3/uL (150-450); RED BLOOD COUNT 3.81 10^6/uL (4.00-5.40); WHITE BLOOD COUNT 6.3 10^3/uL (4.0-10.0)
[2024-02-02 07:11] LABS: BLOOD UREA NITROGEN 16 MG/DL (9-23); CALCIUM LEVEL 8.9 MG/DL (8.3-10.6); CARBON DIOXIDE LEVEL 26 MMOL/L (20-31); CHLORIDE LEVEL 109 MMOL/L (98-107); CREATININE FOR GFR 0.49 MG/DL (0.55-1.30); GLOMERULAR FILTRATION RATE > 60.0 (>45); GLUCOSE, FASTING 86 MG/DL (74-106); POTASSIUM SERUM 4.5 MMOL/L (3.5-5.1); SODIUM LEVEL 140 MMOL/L (136-145)
[2024-02-02 12:00] VITALS: BP 132/68; TEMP 98.6; O2SAT 98
[2024-02-02 20:00] VITALS: BP 128/72; TEMP 97.5; O2SAT 97
[2024-02-02] MEDS: FLUTICASONE PROP 0.05% NASAL SPRAY 16 GM (FLONASE) NARES SCH (20:49)
[2024-02-03 04:00] VITALS: BP 138/76; TEMP 97.8; O2SAT 96
[2024-02-03 12:00] VITALS: BP 134/79; TEMP 97.1; O2SAT 98
[2024-02-03 20:10] VITALS: BP 170/97; TEMP 97.2; O2SAT 99
[2024-02-03 20:30] VITALS: BP 148/84
[2024-02-03] MEDS: methocarbamoL 750 MG TAB PO SCH (21:59)
[2024-02-04 04:45] VITALS: BP 123/84; TEMP 98.1; O2SAT 94
[2024-02-04 12:00] VITALS: BP 117/69; TEMP 96.9; O2SAT 96
[2024-02-04 20:00] VITALS: BP 143/73; TEMP 97.8; O2SAT 96
[2024-02-04] MEDS: CYCLOBENZAPRINE 10MG TABLET PO SCH (21:05)
[2024-02-05 04:00] VITALS: BP 141/73; TEMP 97.1; O2SAT 97
[2024-02-05 12:00] VITALS: BP 120/74; TEMP 97.4; O2SAT 96
[2024-02-05 20:00] VITALS: BP 132/77; TEMP 97.6; O2SAT 97
[2024-02-06 04:00] VITALS: BP 132/75; TEMP 96.7; O2SAT 98
[2024-02-06 12:06] VITALS: BP 136/92; TEMP 97.2; O2SAT 100
[2024-02-06] MEDS ORDERED: SENO8.6T5 PO (17:50)
[2024-02-06] MEDS ORDERED: COLA100C5 PO (17:50)
[2024-02-06] MEDS ORDERED: ACET-683 PO (17:50)
[2024-02-06] MEDS ORDERED: RAME8TAB2 PO (17:50)
[2024-02-06] MEDS ORDERED: OXYC-517 PO (17:50)
[2024-02-06] MEDS ORDERED: CELE1CAP PO (17:50)
[2024-02-06] MEDS ORDERED: POTA-136 PO (17:50)
[2024-02-06] MEDS ORDERED: CYCL10TA20 PO (17:50)
[2024-02-06] MEDS ORDERED: MAGN50TA PO (17:50)
[2024-02-06] MEDS ORDERED: TRAM50TA2 PO (17:50)
[2024-02-06 20:15] VITALS: BP 143/79; TEMP 97.6; O2SAT 94
[2024-02-07 04:37] VITALS: BP 160/89; TEMP 97.9; O2SAT 96
[2024-02-07] MEDS: CYCLOBENZAPRINE 10MG TABLET PO PRN (08:48)
== END 2024-02-07 13:15 | disposition home health service (06) | DRG 560 ==
LOC: M PM&R 14:30
PROVIDERS: ADMIT Physical Medicine & Rehabilitation; ATTEND Physical Medicine & Rehabilitation
DX: S72.301D Unspecified fracture of shaft of right femur, subsequent encounter for closed fracture with routine healing (principal); D83.8 Other common variable immunodeficiencies; M17.0 Bilateral primary osteoarthritis of knee; M81.0 Age-related osteoporosis without current pathological fracture; Q96.9 Turner's syndrome, unspecified; I10 Essential (primary) hypertension; F32.A Depression, unspecified; E03.9 Hypothyroidism, unspecified; K59.00 Constipation, unspecified; Z88.0 Allergy status to penicillin; Z88.8 Allergy status to other drugs, medicaments and biological substances; L65.9 Nonscarring hair loss, unspecified; D50.9 Iron deficiency anemia, unspecified; G25.81 Restless legs syndrome; E55.9 Vitamin D deficiency, unspecified; L89.319 Pressure ulcer of right buttock, unspecified stage; Z79.899 Other long term (current) drug therapy

== ENCOUNTER → 2024-02-10 | Outpatient (CLI) | payer MEDICARE, MEDICAID ==
[~2024-02-10] MED LIST changes: +ACET-683 PO; +CELE1CAP PO; +COLA100C5 PO; +CYCL10TA20 PO; +MAGN50TA PO; +OXYC-517 PO; +POTA-136 PO; +RAME8TAB2 PO; +SENO8.6T5 PO; +TRAM50TA2 PO
== END ==
LOC: M SOG 09:18
PROVIDERS: ATTEND Physician Assistant
DX: S72.301A Unspecified fracture of shaft of right femur, initial encounter for closed fracture (principal); X58.XXXA Exposure to other specified factors, initial encounter; Y92.9 Unspecified place or not applicable

== ENCOUNTER → 2024-03-04 | Outpatient (CLI) | payer MEDICARE, MEDICAID ==
[2024-03-04 15:05] LABS: BASO % 0.5 % (0.0-1.0); EOS # 0.2 10^3/uL (0.0-0.5); EOS % 3.6 % (0.0-3.0); HEMATOCRIT 41.9 % (36.0-47.0); HEMOGLOBIN 13.9 g/dl (12.0-15.5); LYMPH # 0.5 10^3/uL (1.5-5.0); LYMPH % 7.2 % (24.0-44.0); MEAN CORPUSCULAR HEMOGLOBIN 29.7 pg (27.0-33.0); MEAN CORPUSCULAR HGB CONC 33.2 g/dl (32.0-36.5); MEAN CORPUSCULAR VOLUME 89.5 fl (80.0-96.0); MONO # 0.5 10^3/uL (0.0-0.8); NEUTROPHILS # 5.3 10^3/uL (1.5-8.5); NEUTROPHILS % 80.2 % (36.0-66.0); PLATELET COUNT, AUTOMATED 325 10^3/uL (150-450); RED BLOOD COUNT 4.68 10^6/uL (4.00-5.40); WHITE BLOOD COUNT 6.6 10^3/uL (4.0-10.0)
[2024-03-04 15:29] LABS: MAGNESIUM LEVEL 2.2 MG/DL (1.8-2.4)
[2024-03-04 15:50] LABS: PTH INTACT 54.6 PG/ML (18.5-88.0)
[2024-03-04 15:53] LABS: FERRITIN 94.7 NG/ML (7.3-270.7)
[2024-03-04 15:54] LABS: TOTAL 25(OH) VITAMIN D 52.2 NG/ML (20.0-100.0)
== END ==
LOC: M LAB 14:28
PROVIDERS: ATTEND Family Medicine
DX: D50.9 Iron deficiency anemia, unspecified (principal); M80.00XD Age-related osteoporosis with current pathological fracture, unspecified site, subsequent encounter for fracture with routine healing

== ENCOUNTER 2024-03-12 12:33 | Outpatient (CLI) | payer MEDICARE, MEDICAID ==
[~2024-03-12] VITALS: Ht 144.8 cm; Wt 73.8 kg
[2024-03-12 12:45] VITALS: BP 169/89; O2SAT 98
[2024-03-12 13:40] LABS: ALBUMIN 3.5 G/DL (3.2-5.2); ALKALINE PHOSPHATASE 207 U/L (35-104); ALT/SGPT 48 U/L (7.0-40); AST/SGOT 75 U/L (<34); BILIRUBIN,TOTAL 0.6 MG/DL (0.3-1.2); BLOOD UREA NITROGEN 21 MG/DL (9-23); CALCIUM LEVEL 9.7 MG/DL (8.3-10.6); CARBON DIOXIDE LEVEL 25 MMOL/L (20-31); CHLORIDE LEVEL 103 MMOL/L (98-107); GLOMERULAR FILTRATION RATE > 60.0 (>45); GLUCOSE, FASTING 97 MG/DL (74-106); POTASSIUM SERUM 5.1 MMOL/L (3.5-5.1); SODIUM LEVEL 136 MMOL/L (136-145); TOTAL PROTEIN 6.8 G/DL (5.7-8.2)
[2024-03-12] MEDS: ZOLEDRONIC ACID 5 MG in IV 1 EA IV ONE (14:06)
[2024-03-12 14:50] VITALS: BP 169/88; O2SAT 86
== END 2024-03-12 14:50 ==
LOC: M INFU 12:33
PROVIDERS: ATTEND Physician Assistant Medical
DX: M81.0 Age-related osteoporosis without current pathological fracture (principal); I10 Essential (primary) hypertension; Z88.0 Allergy status to penicillin; Z88.1 Allergy status to other antibiotic agents
CPT/HCPCS: 80053; 96365; J3489

== ENCOUNTER → 2024-03-12 | Outpatient (CLI) | payer MEDICARE, MEDICAID ==
[~2024-03-12] MED LIST changes: -CELE50CA PO; +CELE50CA17 PO
== END ==
LOC: M SOG 08:12
PROVIDERS: ATTEND Physician Assistant
DX: S72.301A Unspecified fracture of shaft of right femur, initial encounter for closed fracture (principal); W18.30XA Fall on same level, unspecified, initial encounter; Y92.009 Unspecified place in unspecified non-institutional (private) residence as the place of occurrence of the external cause

== ENCOUNTER 2024-03-14 23:11 | Emergency (ER) | payer MEDICARE, MEDICAID ==
[~2024-03-14] VITALS: Ht 144.8 cm; Wt 73.6 kg
[2024-03-14 23:24] VITALS: TEMP 97.4
[2024-03-15 00:14] LABS: BASO # 0.1 10^3/uL (0.0-0.2); BASO % 0.4 % (0.0-1.0); EOS # 0.1 10^3/uL (0.0-0.5); EOS % 0.4 % (0.0-3.0); HEMATOCRIT 44.8 % (36.0-47.0); HEMOGLOBIN 15.7 g/dl (12.0-15.5); LYMPH # 0.7 10^3/uL (1.5-5.0); LYMPH % 5.5 % (24.0-44.0); MEAN CORPUSCULAR VOLUME 85.5 fl (80.0-96.0); MONO % 7.7 % (2.0-8.0); NEUTROPHILS # 11.2 10^3/uL (1.5-8.5); NEUTROPHILS % 84.8 % (36.0-66.0); RED BLOOD COUNT 5.24 10^6/uL (4.00-5.40); WHITE BLOOD COUNT 13.2 10^3/uL (4.0-10.0)
[2024-03-15 01:23] LABS: LIPASE 24 U/L (12-53)
[2024-03-15 01:24] LABS: CPK CREATINE PHOSPHOKINASE 73 U/L (34-145)
[2024-03-15 01:27] LABS: ALBUMIN 3.5 G/DL (3.2-5.2); ALKALINE PHOSPHATASE 241 U/L (35-104); ALT/SGPT 52 U/L (7.0-40); AST/SGOT 33 U/L (<34); BILIRUBIN,DIRECT 0.2 MG/DL (<0.4); BILIRUBIN,TOTAL 0.6 MG/DL (0.3-1.2); BLOOD UREA NITROGEN 17 MG/DL (9-23); CALCIUM LEVEL 9.5 MG/DL (8.3-10.6); CARBON DIOXIDE LEVEL 28 MMOL/L (20-31); CHLORIDE LEVEL 100 MMOL/L (98-107); CK-MB VALUE MASS < 1.0 NG/ML (<3.6); CREATININE FOR GFR 0.51 MG/DL (0.55-1.30); GLOMERULAR FILTRATION RATE > 60.0 (>45); GLUCOSE, FASTING 134 MG/DL (74-106); MB/CK RELATIVE INDEX 1.36 (< OR =4); POTASSIUM SERUM 2.9 MMOL/L (3.5-5.1); SODIUM LEVEL 135 MMOL/L (136-145); TOTAL PROTEIN 6.8 G/DL (5.7-8.2)
[2024-03-15 01:47] LABS: MAGNESIUM LEVEL 2.2 MG/DL (1.8-2.4)
[2024-03-15] MEDS: POTASSIUM CHLORIDE 10MEQ SR TABLET PO ONE ×2 (01:55→04:15)
[2024-03-15] MEDS: NS 1,000 ML IV ONE (02:12)
[2024-03-15 02:55] LABS: CK-MB VALUE MASS < 1.0 NG/ML (<3.6)
[2024-03-15 02:57] LABS: CPK CREATINE PHOSPHOKINASE 75 U/L (34-145); MB/CK RELATIVE INDEX 1.33 (< OR =4)
[2024-03-15 06:00] VITALS: BP 151/81; O2SAT 95
== END 2024-03-15 07:07 | disposition home or self-care (01) ==
LOC: M ED 23:11 → EDBD 23:11 → M ED 03-15 07:07
DX: I95.1 Orthostatic hypotension (principal); E87.6 Hypokalemia; I70.0 Atherosclerosis of aorta; M85.89 Other specified disorders of bone density and structure, multiple sites; I10 Essential (primary) hypertension; F32.9 Major depressive disorder, single episode, unspecified; Z88.0 Allergy status to penicillin; Z88.1 Allergy status to other antibiotic agents; Z79.1 Long term (current) use of non-steroidal anti-inflammatories (NSAID); Z79.899 Other long term (current) drug therapy

== ENCOUNTER → 2024-04-05 | Outpatient (CLI) | payer MEDICARE, MEDICAID | LOC: M SOG 07:53 | PROVIDERS: ATTEND Physician Assistant | DX: S72.301A Unspecified fracture of shaft of right femur, initial encounter for closed fracture (principal); Z53.9 Procedure and treatment not carried out, unspecified reason ==

== ENCOUNTER 2024-06-23 12:34 | Emergency (ER) | payer MEDICARE, MEDICAID ==
[2024-06-23] MEDS ORDERED: EPINEPHrine 1MG/10ML SYRINGE 1.5IN ONE (12:35)
[2024-06-23] MEDS ORDERED: SODIUM BICARBONATE 8.4% INJ 50ML SYRINGE ONE (12:35)
[2024-06-23] MEDS ORDERED: CALCIUM CHLORIDE 10% 1 GM/10 ML SYR ONE (12:35)
[2024-06-23] MEDS ORDERED: EPINEPHrine 1MG/10ML SYRINGE 1.5IN XX STA (13:09)
[2024-06-23] MEDS ORDERED: NOREPINEPHRINE 4MG IN D5 250ML 4 MG in IV 1 EA IV SCH (13:10)
[2024-06-23] MEDS ORDERED: NS (Normal Saline) 0.9% 1,000 ML IV ONE (13:10)
[2024-06-23 13:33] LABS: MEAN CORPUSCULAR HEMOGLOBIN 30.1 pg (27.0-33.0); MEAN CORPUSCULAR HGB CONC 29.4 g/dl (32.0-36.5); MEAN CORPUSCULAR VOLUME 102.6 fl (80.0-96.0); PLATELET COUNT, AUTOMATED 277 10^3/uL (150-450); RED BLOOD COUNT 1.96 10^6/uL (4.00-5.40); WHITE BLOOD COUNT 4.9 10^3/uL (4.0-10.0)
[2024-06-23 13:36] LABS: HEMOGLOBIN 5.9 g/dl (12.0-15.5)
[2024-06-23 13:37] VITALS: O2SAT 100
[2024-06-23 13:37] LABS: PARTIAL THROMBOPLASTIN TIME 106.1 SECONDS (24.8-34.2); PROTHROMBIN TIME 56.7 SECONDS (12.5-14.5)
[2024-06-23 13:38] LABS: HEMATOCRIT 20.1 % (36.0-47.0)
[2024-06-23] MEDS ORDERED: DOBUTamine HCL 500,000 MCG in IV 1 EA IV SCH (13:55)
[2024-06-23 13:56] LABS: CK-MB VALUE MASS 1.9 NG/ML (<3.6)
[2024-06-23 14:00] LABS: THYROID STIMULATING HORMONE 21.302 uIU/ML (0.55-4.78)
[2024-06-23 14:01] LABS: FREE T4 1.01 NG/DL (0.89-1.76)
[2024-06-23 14:05] LABS: ALBUMIN 0.7 G/DL (3.2-5.2); ALKALINE PHOSPHATASE 271 U/L (35-104); ALT/SGPT 661 U/L (7.0-40); BILIRUBIN,DIRECT 0.4 MG/DL (<0.4); BILIRUBIN,TOTAL 0.5 MG/DL (0.3-1.2); BLOOD UREA NITROGEN 16 MG/DL (9-23); CALCIUM LEVEL 6.7 MG/DL (8.3-10.6); CARBON DIOXIDE LEVEL < 10.0 MMOL/L (20-31); CHLORIDE LEVEL 113 MMOL/L (98-107); CPK CREATINE PHOSPHOKINASE 148 U/L (34-145); CREATININE FOR GFR 0.69 MG/DL (0.55-1.30); GLOMERULAR FILTRATION RATE > 60.0 (>45); GLUCOSE, FASTING 85 MG/DL (74-106); MB/CK RELATIVE INDEX 1.28 (< OR =4); POTASSIUM SERUM 3.1 MMOL/L (3.5-5.1); SODIUM LEVEL 144 MMOL/L (136-145); TOTAL PROTEIN 2.1 G/DL (5.7-8.2)
[2024-06-23 14:29] LABS: ANISOCYTOSIS 3+; ATYPICAL LYMPH 5 % (0-5); EOSINOPHILS 1 % (0-3); LYMPHOCYTES 37 % (16-44); METAMYELOCYTES 2 % (0-0); MONOCYTES 7 % (0-5); NEUTROPHILS 47 % (28-66); POIKILOCYTOSIS 4+; POLYCHROMASIA 1+; SPHEROCYTES 1+
[2024-06-23 14:30] LABS: BURR CELLS 2+
[2024-06-23 14:33] LABS: PLATELET ESTIMATE NORMAL (NORMAL)
[2024-06-23 15:07] LABS: INR 6.64
[2024-06-23 16:08] LABS: MAGNESIUM LEVEL 1.7 MG/DL (1.8-2.4); PHOSPHORUS LEVEL 7.5 MG/DL (2.4-5.1)
[2024-06-23 16:38] LABS: AST/SGOT 2488 U/L (<34)
== END 2024-06-23 14:11 | disposition expired ==
LOC: M ED 12:34
DX: I46.9 Cardiac arrest, cause unspecified (principal); Z86.73 Personal history of transient ischemic attack (TIA), and cerebral infarction without residual deficits; I10 Essential (primary) hypertension; D50.9 Iron deficiency anemia, unspecified; Q96.9 Turner's syndrome, unspecified; M85.89 Other specified disorders of bone density and structure, multiple sites; Z88.0 Allergy status to penicillin; Z88.1 Allergy status to other antibiotic agents; Z79.899 Other long term (current) drug therapy
CPT/HCPCS: 31500; 36556; 71045; 80048; 80076; 82550; 82553; 83735; 84100; 84439; 84443; 84484; 85025; 85610; 85730; 92950; 99291; 99292; J0171; J1250